=== PATIENT | male | born 1985 | race Two or more races ===

== ENCOUNTER 2016-12-21 09:07 | Emergency (ER) | payer MEDICARE, MEDICAID ==
[~2016-12-21] VITALS: Ht 167.6 cm; Wt 72.6 kg
[~2016-12-21 09:07] MED LIST: CARV25TA PO; SEVE800T8 PO; VIT1TABL46 PO
--- NOTE | 2016-12-21 09:15 | NUR ---
aaox3, came to er c/o headache post dialysis, patient able to finish the dialysis, neuro intact, face symmetrical, bilateral strong and equal supplier relationship director, speech were clear and coherent. skin is warm and non diaphoretic. RR is even and unlabored with NAD noted. Assisted to hospital gown, placed on monitor. will continuously monitor the patient. Dr Ribeiro at BS for eval.
[2016-12-21] MEDS ORDERED: MORPHINE SULFATE INJ 4 MG/ML DISP.SYRIN ONE (09:23)
[2016-12-21] MEDS ORDERED: IV SET PRIMARY 1 EA INFUS.SET MC ONE (09:23)
[2016-12-21] MEDS ORDERED: IV NS 0.9% 500 ML IV ONE (09:23)
[2016-12-21] MEDS ORDERED: ONDANSETRON HCL/PF 4 MG/2 ML VIAL ONE (09:23)
[2016-12-21] MEDS ORDERED: ONDANSETRON HCL/PF 4 MG/2 ML VIAL IVP ONE (09:30)
[2016-12-21] MEDS ORDERED: IV NS 0.9% 500 ML BAG IV ONE (09:30)
[2016-12-21] MEDS ORDERED: MORPHINE SULFATE INJ 2 MG/ML DISP.SYRIN IV ONE (09:30)
--- NOTE | 2016-12-21 09:36 | NUR ---
RAC #18 IV ACCESS. BLOOD SAMPLE COLLECTED SENT TO LAB
[2016-12-21 09:40] LABS: BASOPHILS % (AUTO) 0.3 % (0.0-2.0); EOSINOPHILS # (AUTO) 0.2 /CMM (0.0-0.7); EOSINOPHILS % (AUTO) 1.8 % (0.0-6.0); HEMATOCRIT 37 % (39-51); HEMOGLOBIN 12.2 g/dL (13.5-17.5); LYMPHOCYTES # (AUTO) 0.9 /CMM (0.8-4.8); LYMPHOCYTES % (AUTO) 9.6 % (20.0-44.0); MEAN CORPUSCULAR HEMOGLOBIN 30 PG (26.0-33.0); MEAN CORPUSCULAR HGB CONC 33 g/dl (31.0-36.0); MEAN CORPUSCULAR VOLUME 92 fL (80-96); MONOCYTES # (AUTO) 0.8 /CMM (0.1-1.30); MONOCYTES % (AUTO) 8.6 % (2.0-12.0); NEUTROPHILS # (AUTO) 7.3 /CMM (1.8-8.9); NEUTROPHILS % (AUTO) 79.7 % (43.0-81.0); PLATELET COUNT (AUTO) 226 /CMM (150-450); RDW COEFFICIENT OF VARIATION 16.3 (11.5-15.0); RED BLOOD CELL COUNT(AUTO) 4.02 MIL/uL (4.5-6.0); WHITE BLOOD COUNT (AUTO) 9.1 K/uL (4.3-11.0)
--- NOTE | 2016-12-21 09:40 | NUR ---
COURTROOM DEPUTY AT BEDSIDE
[2016-12-21 09:55] LABS: CALCIUM, SERUM 9.6 mg/dL (8.5-10.1); CREATININE 6.9 mg/dL (0.6-1.3); POTASSIUM 3.9 mmol/L (3.5-5.1)
--- NOTE | 2016-12-21 10:03 | NUR ---
EKG IN PROGRESS AT BS
--- NOTE | 2016-12-21 10:59 | NUR ---
IV removed. Catheter intact and site benign. Pressure and 4x4 applied to site. No bleeding noted.
--- NOTE | 2016-12-21 10:59 | NUR ---
Patient discharged to home in stable condition. Written and verbal after care instructions given. Patient verbalizes understanding of instruction.
[2016-12-21 11:00] VITALS: BP 120/80
== END 2016-12-21 11:00 | disposition home or self-care (01) ==
LOC: ER 09:10
DX: R51 Headache (principal); I12.0 Hypertensive chronic kidney disease with stage 5 chronic kidney disease or end stage renal disease; N18.6 End stage renal disease; Z85.51 Personal history of malignant neoplasm of bladder; Z99.2 Dependence on renal dialysis; Z90.89 Acquired absence of other organs
CPT/HCPCS: 36415; 71010-TC; 80048-TC; 85025-TC; A4606; J2270; J2405; J7040; Z7610

== ENCOUNTER 2017-03-25 08:37 | Emergency (ER) | payer MEDICARE, MEDICAID ==
[~2017-03-25] VITALS: Ht 167.6 cm; Wt 74.4 kg
[2017-03-25] MEDS ORDERED: IV NS 0.9% 500 ML BAG IV ONE (09:30)
[2017-03-25] MEDS ORDERED: ACETAMINOPHEN 325 MG TABLET ONE (09:47)
[2017-03-25] MEDS ORDERED: ACETAMINOPHEN 325 MG TABLET PO ONE (10:00)
[2017-03-25 10:22] VITALS: BP 125/65
== END 2017-03-25 10:23 | disposition home or self-care (01) ==
LOC: ER 08:41
DX: R00.0 Tachycardia, unspecified (principal); I12.0 Hypertensive chronic kidney disease with stage 5 chronic kidney disease or end stage renal disease; N18.6 End stage renal disease; Z99.2 Dependence on renal dialysis; Z85.51 Personal history of malignant neoplasm of bladder; Z90.89 Acquired absence of other organs
CPT/HCPCS: 71010-TC; A4606; J7040; Z7610

== ENCOUNTER 2017-05-07 18:29 | Inpatient (IN) | payer MEDICARE, MEDICAID ==
[~2017-05-07] VITALS: Ht 167.6 cm; Wt 73.9 kg
--- NOTE | 2017-05-07 19:42 | NUR ---
PT C/O LLQ ABD PAIN X6 HOURS PT DENIES N/V/D. PT AOX3 RR EVEN AND UNLABORED. NO SOB NOTED. NAD NOTED. NO NVD AT THIS TIME. PT GOWNED AND PLACED ON MONITOR WAITING FOR MD BERMUDEZ. PT UNABLE TO PROVIDE URINE D/T BEING A HD PT. HD SHUNT NOTED ON BRIANA BRUIT ADN THRILL NOTED.
[2017-05-07] MEDS ORDERED: ONDANSETRON HCL/PF 4 MG/2 ML VIAL ONE (19:56)
[2017-05-07] MEDS ORDERED: MORPHINE SULFATE INJ 4 MG/ML DISP.SYRIN ONE (19:56)
[2017-05-07] MEDS ORDERED: IV NS 0.9% 500 ML BAG IV ONE (20:00)
[2017-05-07] MEDS ORDERED: ONDANSETRON HCL/PF 4 MG/2 ML VIAL IVP ONE (20:00)
[2017-05-07] MEDS ORDERED: MORPHINE SULFATE INJ 2 MG/ML DISP.SYRIN IV ONE (20:00)
--- NOTE | 2017-05-07 20:02 | NUR ---
MEDICATED PT ORDERED
[2017-05-07 20:06] LABS: BASOPHILS % (AUTO) 0.3 % (0.0-2.0); EOSINOPHILS # (AUTO) 0.7 /CMM (0.0-0.7); EOSINOPHILS % (AUTO) 9.2 % (0.0-6.0); HEMATOCRIT 30 % (39-51); HEMOGLOBIN 10.3 g/dL (13.5-17.5); LYMPHOCYTES # (AUTO) 0.9 /CMM (0.8-4.8); LYMPHOCYTES % (AUTO) 12.4 % (20.0-44.0); MEAN CORPUSCULAR HEMOGLOBIN 32 PG (26.0-33.0); MEAN CORPUSCULAR HGB CONC 35 g/dl (31.0-36.0); MEAN CORPUSCULAR VOLUME 93 fL (80-96); MONOCYTES # (AUTO) 0.7 /CMM (0.1-1.30); MONOCYTES % (AUTO) 9.1 % (2.0-12.0); PLATELET COUNT (AUTO) 206 /CMM (150-450); RDW COEFFICIENT OF VARIATION 14.5 (11.5-15.0); WHITE BLOOD COUNT (AUTO) 7.3 K/uL (4.3-11.0)
--- NOTE | 2017-05-07 20:18 | NUR ---
PT TO RADIOLOGY FOR CT ABD/PELVIS
[2017-05-07 20:23] LABS: ALBUMIN 3.9 g/dL (3.4-5.0); BILIRUBIN,DIRECT 0.1 mg/dL (0.0-0.2); BILIRUBIN,TOTAL 0.6 mg/dL (0.2-1.0); TOTAL PROTEIN, SERUM 7.8 g/dL (6.4-8.2)
[2017-05-07 20:27] LABS: CREATININE 12.3 mg/dL (0.6-1.3)
--- NOTE | 2017-05-07 20:29 | NUR ---
PT RETURNED FROM CT.
[2017-05-07] MEDS ORDERED: SODIUM POLYSTYRENE SULFONATE 15 G/60 ML BOTTLE PO ONE (20:30)
[2017-05-07] MEDS ORDERED: SODIUM POLYSTYRENE SULFONATE 15 G/60 ML BOTTLE ONE (20:39)
--- NOTE | 2017-05-07 21:23 | NUR ---
DR. CARMEN SPEAKING TO DR. PERSON REGARDING ADMISSION
[2017-05-07] MEDS ORDERED: INSULIN REGULAR, HUMAN 100 UNIT/ML 10 ML VIAL IV ONE (21:30)
[2017-05-07] MEDS ORDERED: CALCIUM CHLORIDE 1,000 MG/10 ML DISP.SYRIN IV ONE (21:30)
[2017-05-07] MEDS ORDERED: DEXTROSE 50%-WATER 50 ML DISP.SYRIN IVP ONE (21:30)
[2017-05-07] MEDS ORDERED: INSULIN REGULAR, HUMAN 100 UNIT/ML 10 ML VIAL ONE (21:32)
[2017-05-07] MEDS ORDERED: CALCIUM CHLORIDE 1,000 MG/10 ML DISP.SYRIN ONE (21:32)
[2017-05-07] MEDS ORDERED: DEXTROSE 50%-WATER 50 ML DISP.SYRIN ONE (21:32)
--- NOTE | 2017-05-07 21:33 | NUR ---
10 UNIT INSULIN WITNESSED
--- NOTE | 2017-05-07 22:24 | NUR ---
LAB AT BEDSIDE FOR Joselyn HERNANDES
--- NOTE | 2017-05-07 22:26 | NUR ---
PT ASSIGNED TO [facility] BED 321-2
--- NOTE | 2017-05-07 22:33 | NUR ---
REPORT GIVEN TO HORACIO ANDERSON FOR TELE BED 321-2
[2017-05-07 23:25] VITALS: BP 157/85
--- NOTE | 2017-05-08 00:02 | NUR ---
CATHODE BUILDER NOTES RECEIVED PATIENT FROM ER TO ROOM 321-2, A & O x 4 WITH C/O LEFT LOWER ABDOMINAL PAIN AT PAIN SCALE 2/10 AT THIS TIME. DOESN'T WANT TO TAKE ANY PAIN MEDICINE AT THIS TIME. ON TELE MONITORING WITH SR 90. IV ACCESS TO RAC, INTACT PATENT. NO S/S OF INFECTION NOTED. ON DIALYSIS WITH AV SHUNT TO HIS MANINDER. AMBULATORY, CONTINENT. BODY ASSESSMENT DONE, INTACT. ALL BELONGINGS ACCOUNTED & DOCUMENTED. BED IN LOW LOCKED POSITION. CALL LIGHT WITHIN REACH. WILL CONTINUE TO MONITOR.
--- NOTE | 2017-05-08 00:55 | NUR ---
KOSHER SEALER NOTES CALLED DR. WALL, REVIEWED ALL ADMISSION ORDERS. NOTED & CARRIED OUT.
[2017-05-08] MEDS ORDERED: ONDANSETRON HCL/PF 4 MG/2 ML VIAL IV PRN (01:30)
[2017-05-08] MEDS ORDERED: ACETAMINOPHEN 325 MG TABLET PO PRN (01:30)
[2017-05-08] MEDS ORDERED: ZOLPIDEM TARTRATE 5 MG TABLET PO PRN (01:30)
[2017-05-08] MEDS ORDERED: HYDROMORPHONE 1 MG/1 ML DISP.SYRIN IV PRN ×2 (01:30→13:00)
[2017-05-08] MEDS ORDERED: ACETAMINOPHEN 325 MG TABLET ONE (06:14)
--- NOTE | 2017-05-08 06:19 | NUR ---
RN NOTES PT COMPLAINED OF LOWER ABDOMEN PAIN 10/18- TYLENOL 650MG PO GIVEN ORDERED
--- NOTE | 2017-05-08 06:39 | NUR ---
MS RN CLOSING NOTES PATIENT SLEPT WELL, HAD MILD C/O PAIN TO LEFT LOWER ABDOMEN. PRN MEDICINE WAS GIVEN . IV ACCESS TO RAC, INTACT PATENT. AMBULATORY, CONTINENT OF B & BM. KEPT CLEAN & DRY. ALL NEEDS MET. BED IN LOW LOCKED POSITION. CALL LIGHT WITHIN REACH. WLL CONTINUE TO MONITOR. WILL ENDORSE TO AM SHIFT.
[2017-05-08 07:20] LABS: BASOPHILS % (AUTO) 0.4 % (0.0-2.0); EOSINOPHILS # (AUTO) 0.7 /CMM (0.0-0.7); EOSINOPHILS % (AUTO) 10.2 % (0.0-6.0); HEMATOCRIT 29 % (39-51); HEMOGLOBIN 9.7 g/dL (13.5-17.5); LYMPHOCYTES # (AUTO) 1.6 /CMM (0.8-4.8); LYMPHOCYTES % (AUTO) 21.6 % (20.0-44.0); MEAN CORPUSCULAR HEMOGLOBIN 32 PG (26.0-33.0); MEAN CORPUSCULAR HGB CONC 34 g/dl (31.0-36.0); MEAN CORPUSCULAR VOLUME 94 fL (80-96); MONOCYTES # (AUTO) 0.7 /CMM (0.1-1.30); MONOCYTES % (AUTO) 9.7 % (2.0-12.0); NEUTROPHILS # (AUTO) 4.2 /CMM (1.8-8.9); NEUTROPHILS % (AUTO) 58.1 % (43.0-81.0); PLATELET COUNT (AUTO) 173 /CMM (150-450); RDW COEFFICIENT OF VARIATION 15.6 (11.5-15.0); RED BLOOD CELL COUNT(AUTO) 3.06 MIL/uL (4.5-6.0); WHITE BLOOD COUNT (AUTO) 7.2 K/uL (4.3-11.0)
--- NOTE | 2017-05-08 07:30 | NUR ---
RN MS NOTES PATIENT ASLEEP BUT EASILY AROUSABLE, DENIES PAIN AT THIS TIME, CURRENTLY ON HEMODIALYSIS AND TOLERATING WELL, NEEDS ATTENDED AND ANTICIPATED, SAFETY MEASURES IN PLACED, CALL LIGHT WITHIN REACH, WILL CONTINUE TO MONITOR.
[2017-05-08 07:33] LABS: ALBUMIN 3.4 g/dL (3.4-5.0); BILIRUBIN,TOTAL 0.5 mg/dL (0.2-1.0); CALCIUM, SERUM 9.6 mg/dL (8.5-10.1); MAGNESIUM 2.7 mg/dL (1.8-2.4); POTASSIUM 5.9 mmol/L (3.5-5.1); TOTAL PROTEIN, SERUM 6.9 g/dL (6.4-8.2)
[2017-05-08 07:38] LABS: CREATININE 13.5 mg/dL (0.6-1.3)
[2017-05-08 08:00] VITALS: BP 148/72
--- NOTE | 2017-05-08 10:00 | NUR ---
RN MS NOTES HEMODIALYSIS COMPLETED WITH 3LITER OUTPUT.
[2017-05-08] MEDS ORDERED: HYDROMORPHONE INJ 2 MG/ML DISP.SYRIN IV PRN (11:00)
--- NOTE | 2017-05-08 11:33 | NUR ---
RN MS NOTES DR. MONROE MADE AWARE OF PHOSPHORUS LEVEL, RECEIVED NO NEW ORDER AT THIS TIME, PER MD, PATIENT IS NON COMPLIANT WITH HIS DIET, HIS PHOSPHORUS IS ALWAYS ELEVATED.
--- NOTE | 2017-05-08 12:41 | NUR ---
RN MS NOTES ILIA MEDICATION INEFFECTIVE, PATIENT CONTINUES TO HAVE MORE PAIN, DR. MONROE MADE AWARE AND RECEIVED NEW ORDER FOR DILAUDID 1MG Q4H PRN, ORDER NOTED AND CARRIED OUT.
[2017-05-08] MEDS: HYDROMORPHONE INJ 2 MG/ML DISP.SYRIN IV PRN ×2 (13:24→19:56)
[2017-05-08] MEDS: SEVELAMER CARBONATE 800 MG TABLET PO SCH ×2 (13:26→17:48)
[2017-05-08 16:33] VITALS: BP 170/80
--- NOTE | 2017-05-08 17:30 | NUR ---
RN MS NOTES PATIENT RESTING COMFORTABLY, NO S/SX OF DISTRESS AT THIS TIME, PIV PATENT AND FLUSHES WELL, NEEDS ATTENDED AND MET, C/O LOWER ABDOMINAL PAIN, MEDICATION TAKEN OUT OF OMNICELL AND GIVEN TO DISTRICT WIRE CHIEF NURSE FOR ADMINISTRATION, SAFETY MEASURES IN PLACED, CALL LIGHT WITHIN REACH, WILL ENDORSE TO DISTRICT WIRE CHIEF FOR ERIC.
--- NOTE | 2017-05-08 19:30 | NUR ---
RN NOTES: RECEIVED LYING ON BED,ALERT AND COHERENTX4,ON ROOM AIR,NO SIGN OF RESPIRATORY DISTRESS,BED LOW AND LOCKED,CALL LIGHT WITHIN EASY REACH,INSTRUCT TO CALL WHENEVER HE IS IN PAIN, KEPT ON CLOSE VISUAL CHECK,MANINDER AV SHUNT POSITIVE FOR BRUIT AND THRILL.
--- NOTE | 2017-05-08 19:45 | NUR ---
RN NOTES: SEEN BY , WITH NEW ORDER FOR SURGICAL EVALUATION OF RECTUS SHEATH HEMATOMA TO . NOTED AND CARRIED OUT.
[2017-05-08 20:00] VITALS: BP_SYST 124; BP_SYST 151; BP_DIAS 77; BP_DIAS 85
--- NOTE | 2017-05-08 20:00 | NUR ---
RN NOTES: PATIENT HAS SEVERE PAIN ON THE LOWER ABDOMEN AREA, GRIMACING,NON PHARMACOLOGIC INTERVENTION RENDERED, BP-151/85 MS-101.DILAUDID GIVEN, KEPT IN COMFORTABLE POSITION.CALL LIGHT WITHIN EASY REACH.
--- NOTE | 2017-05-08 20:43 | NUR ---
RN NOTES: NM RECHECKED=90 TAKEN MANUALLY,ABLE TO SLEEP WELL AFTER PAIN MEDICATION WAS GIVEN,KEPT ON CLOSE WATCH, CALL LIGHT WITHIN EASY REACH.
[2017-05-08] MEDS: CARVEDILOL 12.5 MG TABLET PO SCH (21:21)
--- NOTE | 2017-05-09 00:23 | NUR ---
RN NOTES: AWAKE,REQUEST FOR SNACK, GIVEN SANDWICH AND CRANBERRY JUICE,LINNEN CHANGE, AMBULATE FOR FEW MINUTES,TOLERATED WELL, CAME BACK TO HIS ROOM AND SIT DOWN ON THE BED SIDE.
[2017-05-09] MEDS: HYDROMORPHONE INJ 2 MG/ML DISP.SYRIN IV PRN ×2 (01:56→20:43)
--- NOTE | 2017-05-09 02:30 | NUR ---
RN NOTES: -0156AM AFTER HE AMBULATE AND EAT HE COMPLAINED OF PAIN,10/10 ON THE ABDOMEN AREA,INSTRUCT TO LIE DOWN AND REST, HE REQUEST FOR HIS PAIN MEDICATION , DILAUDID GIVEN, BP-135/74 CA-89.KEPT RESTED. -AT 0230 ABLE TO SLEEP AND REST, KEPT MONITORED, CALL LIGHT WITHIN EASY REACH.
--- NOTE | 2017-05-09 06:39 | NUR ---
RN NOTES: ASLEEP, NO PAIN AND DISCOMFORT AT THIS TIME,NO SIGN OF RESPIRATORY DISTRESS,ENDORSED FOR CONTINUITY OF CARE.
--- NOTE | 2017-05-09 07:53 | NUR ---
RN NOTES RECEIVED PT. PT IS STABLE AND SLEEPING IN BED. NO S/S OF DISTRESS OR SOB. PT DOES NOT APPEAR TO BE IN PAIN. PT IS ON RA, O2SAT ABOVE 95%. IV ACCESS LOCATED ON RIGHT AC 18G, SL. AV SHUNT ON LEFT UA, BRUIT AND THRILL NOTED. SAFETY MEASURES IN PLACE, CALL LIGHT WITHIN REACH. WILL CONTINUE TO MONITOR.
[2017-05-09 08:00] VITALS: BP 134/61
[2017-05-09] MEDS: CARVEDILOL 12.5 MG TABLET PO SCH ×2 (08:45→20:43)
[2017-05-09] MEDS: VIT B CMPLX 3/FA/VIT C/BIOTIN 1 TAB TABLET PO SCH (08:45)
[2017-05-09] MEDS: SEVELAMER CARBONATE 800 MG TABLET PO SCH ×3 (08:45→18:20)
[2017-05-09] MEDS ORDERED: HYDROCODONE/APAP 10/325MG 1 EA TABLET PO PRN (15:00)
[2017-05-09 16:00] VITALS: BP 146/77
--- NOTE | 2017-05-09 18:59 | NUR ---
RN CLOSING NOTES PT IS IN BED RESTING. PT IS CURRENTLY RECEIVING DIALYSIS. DIALYSIS NURSE IS BEDSIDE. NO S/S OF DISTRESS OR SOB. PT STATES THAT HIS PAIN IS 4/10, BUT DOES NOT WANT PAIN MEDICATION. PER DR. CASTRO ORDER: ICEPACK APPLIED TO ABDOMEN X10 DAILY, APPLY ABD BINDER, AMBULATE DURING DAY. SAFETY MEASURES IN PLACE, CALL LIGHT WITHIN REACH. WILL ENDORSE TO LEMON GROWER FOR ERIC.
--- NOTE | 2017-05-09 19:00 | NUR ---
MS RN OPENING NOTES RECEIVE PT RESTING IN BED, A/OX 4. NO S/S OF RESPIRATORY DISTRESS OR SOB. SAFETY MEASURES IN PLACE, ON LOW BED TO ENSURE SAFETY. CALL LIGHT WITHIN REACH. WILL CONTINUE TO MONITOR
--- NOTE | 2017-05-09 19:00 | NUR ---
MS RN NOTES AM NURSE ENDORSE TO ME THAT DIALYSIS WAS JUST DONE AND PT TOLERATED PROCEDURE WELL.
[2017-05-09 20:00] VITALS: BP 139/77
[2017-05-10] MEDS: HYDROMORPHONE INJ 2 MG/ML DISP.SYRIN IV PRN ×3 (05:54→22:19)
--- NOTE | 2017-05-10 06:31 | NUR ---
MS RN CLOSING NOTES PT ASLEEP AND EASILY AWAKEN, HOB, TOLERATING ROOM AIR 100%. RAC 18 IV SITE NO S/S OF INFILTRATED, NO S/S OF RESPIRATORY DISTRESS IN STABLE CONDITION. NO COMPLAIN OF PAIN AT THIS TIME. NO SOB, SKIN WARM AND DRY TO TOUCH, AFEBRILE, NEEDS ATTENDED AND ANTICIPATED. NURSING CARE RENDERED.. KEPT CLEAN AND DRY AND COMFORTABLE, GOOD SKIN CARE PROVIDED. FREQUENT VISUAL CHECK DONE FOR SAFETY EVERY 2 HOURS. SAFE HAZARD FREE ENVIRONMENT PROVIDED. CALL LIGHT WITHIN EASY TO REACH, ON LOW BED AT ALL TIMES TO ENSURE SAFETY, WILL ENDORSE TO THE NEXT SHIFT CONTINUE PLAN OF CARE.
--- NOTE | 2017-05-10 07:30 | NUR ---
received pt. in am alert and oriented x3.no complaints offered.
[2017-05-10 08:00] VITALS: BP 155/72
[2017-05-10] MEDS: CARVEDILOL 12.5 MG TABLET PO SCH ×2 (09:26→22:18)
[2017-05-10] MEDS: SEVELAMER CARBONATE 800 MG TABLET PO SCH ×3 (09:26→18:10)
[2017-05-10] MEDS: VIT B CMPLX 3/FA/VIT C/BIOTIN 1 TAB TABLET PO SCH (09:26)
--- NOTE | 2017-05-10 10:30 | NUR ---
walking in halls.
--- NOTE | 2017-05-10 12:00 | NUR ---
using ice pack to abd.
--- NOTE | 2017-05-10 14:32 | NUR ---
med. for abd. pain with dilaudid.
[2017-05-10 16:00] VITALS: BP 138/74
--- NOTE | 2017-05-10 18:09 | NUR ---
med. for headache with chester.
--- NOTE | 2017-05-10 19:00 | NUR ---
MS RN OPENING NOTES PT RESTING IN BED, A/OX 4. NO S/S OF RESPIRATORY DISTRESS OR SOB. SAFETY MEASURES IN PLACE, ON LOW BED TO ENSURE SAFETY. CALL LIGHT WITHIN REACH. WILL CONTINUE TO MONITOR
[2017-05-10 20:00] VITALS: BP 155/84
--- NOTE | 2017-05-11 06:34 | NUR ---
MS RN CLOSING NOTES PT SEMI FOWLERS ASLEEP AND EASILY AWAKEN, TOLERATING ROOM AIR 100%. NO S/S OF RESPIRATORY DISTRESS IN STABLE CONDITION. NO COMPLAINS OF PAIN, 0/10 AFEBRILE, IV SITE NO S/S OF INFILTRATED PATENT AND INTACT, NEEDS ATTENDED AND ANTICIPATED. NURSING CARE RENDERED.. KEPT CLEAN AND DRY AND COMFORTABLE, FREQUENT VISUAL CHECK DONE FOR SAFETY EVERY 2 HOURS. SAFE HAZARD FREE ENVIRONMENT PROVIDED.. CALL LIGHT WITHIN EASY TO REACH, ON LOW BED AT ALL TIMES TO ENSURE SAFETY, WILL ENDORSE TO THE NEXT SHIFT CONTINUE PLAN OF CARE.
[2017-05-11 07:00] LABS: BASOPHILS % (AUTO) 0.4 % (0.0-2.0); EOSINOPHILS # (AUTO) 0.7 /CMM (0.0-0.7); EOSINOPHILS % (AUTO) 9.7 % (0.0-6.0); HEMATOCRIT 28 % (39-51); HEMOGLOBIN 9.5 g/dL (13.5-17.5); LYMPHOCYTES # (AUTO) 0.9 /CMM (0.8-4.8); LYMPHOCYTES % (AUTO) 12.4 % (20.0-44.0); MEAN CORPUSCULAR HEMOGLOBIN 32 PG (26.0-33.0); MEAN CORPUSCULAR HGB CONC 35 g/dl (31.0-36.0); MEAN CORPUSCULAR VOLUME 93 fL (80-96); MONOCYTES # (AUTO) 0.8 /CMM (0.1-1.30); NEUTROPHILS # (AUTO) 4.7 /CMM (1.8-8.9); NEUTROPHILS % (AUTO) 66.5 % (43.0-81.0); PLATELET COUNT (AUTO) 209 /CMM (150-450); RED BLOOD CELL COUNT(AUTO) 2.96 MIL/uL (4.5-6.0); WHITE BLOOD COUNT (AUTO) 7.1 K/uL (4.3-11.0)
[2017-05-11 07:27] LABS: CALCIUM, SERUM 9.5 mg/dL (8.5-10.1); MAGNESIUM 2.5 mg/dL (1.8-2.4)
[2017-05-11 07:32] LABS: CREATININE 13.7 mg/dL (0.6-1.3)
[2017-05-11 08:00] VITALS: BP_SYST 157; BP_DIAS 88; BP_DIAS 89
--- NOTE | 2017-05-11 08:13 | NUR ---
GPS RN NOTE CRITICAL LAB RESULT NOTIFIED DR ROB PHILLIPS NO NEW ORDERS AT THIS TIME WILL CONTINUE MONITORING
[2017-05-11] MEDS: SEVELAMER CARBONATE 800 MG TABLET PO SCH ×3 (08:55→17:09)
[2017-05-11] MEDS: VIT B CMPLX 3/FA/VIT C/BIOTIN 1 TAB TABLET PO SCH (08:55)
[2017-05-11] MEDS: CARVEDILOL 12.5 MG TABLET PO SCH ×2 (09:03→21:03)
--- NOTE | 2017-05-11 12:46 | NUR ---
MS RN NOTES: DIALYSIS JUST DONE AND PT TOLERATED PROCEDURE WELL,NO S/S DISTRESS NOTED.
[2017-05-11 13:10] VITALS: BP 141/74
[2017-05-11] MEDS: HYDROMORPHONE INJ 2 MG/ML DISP.SYRIN IV PRN (13:18)
--- NOTE | 2017-05-11 13:18 | NUR ---
RN NOTE : PATIENT REQUESTED MEDICATIONS FOR PAIN 03/29 DILAUDID 1 MG PO PRN GIVEN WILL CONTINUE MONITORING
[2017-05-11 16:00] VITALS: BP 134/72
--- NOTE | 2017-05-11 18:18 | NUR ---
RN CLOSING NOTES PT IS IN THE ROOM SITTING IN THE CHAIR . PT RECEIVING DIALYSIS. NO S/S OF DISTRESS OR SOB. VS STABLE PATIENT DENIES PAIN AT THIS TIME SAFETY MEASURES IN PLACE, CALL LIGHT WITHIN REACH. WILL ENDORSE TO BREAD PAN GREASER FOR ERIC.
--- NOTE | 2017-05-11 19:30 | NUR ---
MS/RN OPENING NOTES PT RECEIVED RESTING COMFORTABLY IN BED. A/OX4. ON ROOM AIR, BREATHING EVEN AND UNLABORED. DENIES SOB OR PAIN AT THIS TIME. PT RECEIVED DIALYSIS TODAY WITH 1.5L OUT. IV TO RAC PATENT AND INTACT. MANINDER AV SHUNT NOTED. BED IN LOW/LOCKED POSITION WITH CALL LIGHT IN REACH. SIDE RAILS UPX2. WILL CONTINUE TO MONITOR
[2017-05-11 20:00] VITALS: BP 135/70
--- NOTE | 2017-05-11 20:15 | NUR ---
MS/RN NOTES OFFERED PT PRN PAIN MEDICATION HE SCORED ABDOMINAL PAIN 4/10. PT REFUSED. EDUCATED PT REGARDING MANAGEMENT OF PAIN BUT PT STILL REFUSED AT THIS TIME. STATES "IM OKAY FOR NOW". WILL CONTINUE TO MONITOR
[2017-05-12] MEDS: HYDROMORPHONE INJ 2 MG/ML DISP.SYRIN IV PRN ×2 (04:05→09:23)
[2017-05-12 07:08] LABS: BASOPHILS % (AUTO) 0.3 % (0.0-2.0); EOSINOPHILS # (AUTO) 0.6 /CMM (0.0-0.7); EOSINOPHILS % (AUTO) 10.2 % (0.0-6.0); HEMATOCRIT 26 % (39-51); HEMOGLOBIN 8.8 g/dL (13.5-17.5); LYMPHOCYTES # (AUTO) 1.2 /CMM (0.8-4.8); LYMPHOCYTES % (AUTO) 19.2 % (20.0-44.0); MEAN CORPUSCULAR HEMOGLOBIN 32 PG (26.0-33.0); MEAN CORPUSCULAR HGB CONC 34 g/dl (31.0-36.0); MEAN CORPUSCULAR VOLUME 94 fL (80-96); MONOCYTES # (AUTO) 0.9 /CMM (0.1-1.30); MONOCYTES % (AUTO) 14.1 % (2.0-12.0); NEUTROPHILS # (AUTO) 3.4 /CMM (1.8-8.9); NEUTROPHILS % (AUTO) 56.2 % (43.0-81.0); PLATELET COUNT (AUTO) 190 /CMM (150-450); RDW COEFFICIENT OF VARIATION 15.3 (11.5-15.0); RED BLOOD CELL COUNT(AUTO) 2.74 MIL/uL (4.5-6.0); WHITE BLOOD COUNT (AUTO) 6.1 K/uL (4.3-11.0)
[2017-05-12 07:26] LABS: CALCIUM, SERUM 9.5 mg/dL (8.5-10.1); MAGNESIUM 2.4 mg/dL (1.8-2.4); POTASSIUM 4.8 mmol/L (3.5-5.1)
--- NOTE | 2017-05-12 07:30 | NUR ---
RN OPENING NOTES RECEIVED PT. IN BED A&OX4. BREATHING UNLABORED AND EVENLY ON ROOM AIR. PT. DENIES PAIN, NO S/S OF ACUTE DISTRESS. IV ACCESS ON RIGHT HAND IS INTACT. PT. IS ON HEMODILAYSIS NO BP OR BLOOD DRAWS ON LEFT ARM. BED IS IN LOW, LOCKED POSITION, 2 SIDE RAILS UP, AND INSTRUCTED PT. TO USE CALL LIGHT WITHIN REACH. WILL CONTINUE TO ASSESS AND MONITOR.
--- NOTE | 2017-05-12 07:49 | NUR ---
MS/RN NOTES PT ASLEEP, EASILY AROUSABLE TO NAME. A/OX3. ON RA BREATHING EVEN AND UNLABORED. DENIES SOB OR PAIN AT THIS TIME. NEW IV INSERTED TO RIGHT FOREARM #22. MADE PT COMFORTABLE DURING SHIFT. ALL NEEDS MET AND ATTENDED. BED IN LOW/LOCKED POSITION WITH CALL LIGHT IN REACH. ICE PACKS PROVIDED PRN TO ASSIST WITH PAIN MANAGEMENT. SIDE RAILS UPX2. ENDORSED TO AM SHIFT ERIC.
[2017-05-12 08:00] VITALS: BP 123/80
[2017-05-12] MEDS: SEVELAMER CARBONATE 800 MG TABLET PO SCH ×2 (08:11→13:06)
[2017-05-12] MEDS: CARVEDILOL 12.5 MG TABLET PO SCH (08:15)
[2017-05-12] MEDS: VIT B CMPLX 3/FA/VIT C/BIOTIN 1 TAB TABLET PO SCH (08:15)
[2017-05-12 16:00] VITALS: BP 133/74
--- NOTE | 2017-05-12 17:00 | NUR ---
RN NOTES DISCHARGE PT. WAS DISCHARGED IN MEDICALLY STABLE CONDITION BY WHEELCHAIR, AND WILL BE PICKED UP BY HIS BROTHER IN A PRIVATE CAR. PROVIDED PT. DISCHARGE INSTRUCTIONS, EDUCATION AND PT. VERBALIZED UNDERSTANDING. CHECKED PT. BELONGINGS LIST WITH PATIENT AND PAPER WAS SIGNED. IV AND ID BAND WAS REMOVED WITHOUT COMPLICATIONS. PT. LEFT WITH HIS BELONGINGS, AND DISCHARGE PACKET. ALL QUESTIONS WERE ANSWERED.
== END 2017-05-12 17:00 | disposition home or self-care (01) | DRG 604 ==
LOC: ER 18:35 → TELE 22:20 → MED 05-08 01:00
PROVIDERS: ADMIT Internal Medicine; ATTEND Internal Medicine
PROC: 5A1D70Z Performance of Urinary Filtration, Intermittent, Less than 6 Hours Per Day (ICD-10-PCS; principal; 2017-05-08)
DX: S30.1XXA Contusion of abdominal wall, initial encounter (principal); N18.6 End stage renal disease; K56.600 Partial intestinal obstruction, unspecified as to cause; I12.0 Hypertensive chronic kidney disease with stage 5 chronic kidney disease or end stage renal disease; E83.39 Other disorders of phosphorus metabolism; E87.5 Hyperkalemia; N25.0 Renal osteodystrophy; Z85.51 Personal history of malignant neoplasm of bladder; D63.1 Anemia in chronic kidney disease; Z99.2 Dependence on renal dialysis; X58.XXXA Exposure to other specified factors, initial encounter; Y92.009 Unspecified place in unspecified non-institutional (private) residence as the place of occurrence of the external cause; Z87.11 Personal history of peptic ulcer disease; Z90.49 Acquired absence of other specified parts of digestive tract; Z91.19 Patient's noncompliance with other medical treatment and regimen; Z90.5 Acquired absence of kidney; Y93.9 Activity, unspecified; Z90.79 Acquired absence of other genital organ(s)
CPT/HCPCS: 36415; 80048-TC; 80053-TC; 80076-TC; 83690-TC; 83735-TC; 84100-TC; 84132-TC; 85025-TC; 90935-TC; A4606; J1170; J1815; J2270; J2405; J3490; J7040; Z7610

== ENCOUNTER 2017-08-16 07:41 | Emergency (ER) | payer MEDICARE, MEDICAID ==
[~2017-08-16] VITALS: Ht 167.6 cm; Wt 75.3 kg
--- NOTE | 2017-08-16 08:06 | NUR ---
Pt states he has been having Palpitations for 3 days, intermittantly, with slight chest discomfort, denies radiation. Also c/o KEE. Pt denies SOB, dizziness, n/v, no other complaints, no distress noted.
--- NOTE | 2017-08-16 08:09 | NUR ---
Note undone in EDM - 08/16/17 at 0810 by JOSUE PATIENT TO ED DT PALPITATION SP HEMODIALYSIS. PATIENT IS AAO4. APPEARS IN NO APPARENT DISTRESS. DENIES CHEST PAIN, NO SOB. BRIANA AV FISTUAL NOTED WITH NO BLEEDING. PT IS AFEBRILE. CONNECTED PT TO TELE MONITOR. VSS
[2017-08-16 08:29] LABS: BASOPHILS % (AUTO) 0.6 % (0.0-2.0); EOSINOPHILS # (AUTO) 0.3 /CMM (0.0-0.7); EOSINOPHILS % (AUTO) 6.1 % (0.0-6.0); HEMATOCRIT 31 % (39-51); HEMOGLOBIN 10.6 g/dL (13.5-17.5); LYMPHOCYTES # (AUTO) 0.9 /CMM (0.8-4.8); LYMPHOCYTES % (AUTO) 18.4 % (20.0-44.0); MEAN CORPUSCULAR HEMOGLOBIN 30 PG (26.0-33.0); MEAN CORPUSCULAR HGB CONC 34 g/dl (31.0-36.0); MEAN CORPUSCULAR VOLUME 89 fL (80-96); MONOCYTES # (AUTO) 0.6 /CMM (0.1-1.30); MONOCYTES % (AUTO) 11.3 % (2.0-12.0); NEUTROPHILS # (AUTO) 3.2 /CMM (1.8-8.9); NEUTROPHILS % (AUTO) 63.6 % (43.0-81.0); PLATELET COUNT (AUTO) 189 /CMM (150-450); RDW COEFFICIENT OF VARIATION 16.1 (11.5-15.0); RED BLOOD CELL COUNT(AUTO) 3.49 MIL/uL (4.5-6.0)
[2017-08-16 08:43] LABS: CALCIUM, SERUM 10.2 mg/dL (8.5-10.1); CREATININE 5.1 mg/dL (0.6-1.3)
[2017-08-16 08:48] LABS: INR 0.96 (0.87-1.13)
[2017-08-16 08:51] LABS: TROPONIN I 0.178 ng/mL (0.00-0.056)
[2017-08-16] MEDS ORDERED: LORAZEPAM 0.5 MG TABLET PO ONE (09:30)
[2017-08-16] MEDS ORDERED: LORAZEPAM 1 MG TABLET ONE (09:32)
--- NOTE | 2017-08-16 09:36 | NUR ---
Removed IV intact, site okay, bandaged. Gave pt d/c instructions, verbalized understanding.
[2017-08-16 09:43] VITALS: BP 143/81
== END 2017-08-16 09:44 | disposition home or self-care (01) ==
LOC: ER 07:46
DX: R00.2 Palpitations (principal); I12.9 Hypertensive chronic kidney disease with stage 1 through stage 4 chronic kidney disease, or unspecified chronic kidney disease; N18.9 Chronic kidney disease, unspecified; K56.609 Unspecified intestinal obstruction, unspecified as to partial versus complete obstruction; Z99.2 Dependence on renal dialysis; Z90.89 Acquired absence of other organs
CPT/HCPCS: 36415; 71045; 80048; 84484; 85025; 85730; 93005; 99285; A4606; Z7610

== ENCOUNTER 2017-09-02 07:50 | Inpatient (IN) | payer MEDICARE, MEDICAID ==
[~2017-09-02] VITALS: Ht 157.5 cm; Wt 76.2 kg
--- NOTE | 2017-09-02 08:00 | NUR ---
[id number] FROM HOME DT CHEST PAIN, 810, SHARP, RADIATING TO THE RIGHT SHOULDER AND BACK. PATIENT IS AWAKE AND LAERT. APPEARS IN NO DISTRESS. PT ON SP DIALYSIS TODAY. PATIENT IS AFEBRILE. NO N/V. NO DIZZINESS REPORTED. PT AMBULATOTY. SKIN IS WARM AND NON DIAPHHORETIC. AFEBRILE. VSS.
--- NOTE | 2017-09-02 08:04 | NUR ---
MD NAILS AT BEDSIDE
--- NOTE | 2017-09-02 08:04 | NUR ---
PENDING MD BERMUDEZ
[2017-09-02] MEDS ORDERED: ONDANSETRON HCL/PF 4 MG/2 ML VIAL ONE (08:09)
[2017-09-02] MEDS ORDERED: MORPHINE SULFATE INJ 4 MG/ML DISP.SYRIN ONE (08:09)
[2017-09-02 08:23] LABS: BASOPHILS % (AUTO) 0.3 % (0.0-2.0); EOSINOPHILS # (AUTO) 0.2 /CMM (0.0-0.7); EOSINOPHILS % (AUTO) 4.4 % (0.0-6.0); HEMATOCRIT 30 % (39-51); HEMOGLOBIN 10.1 g/dL (13.5-17.5); LYMPHOCYTES # (AUTO) 0.8 /CMM (0.8-4.8); LYMPHOCYTES % (AUTO) 18.8 % (20.0-44.0); MEAN CORPUSCULAR HEMOGLOBIN 30 PG (26.0-33.0); MEAN CORPUSCULAR HGB CONC 34 g/dl (31.0-36.0); MEAN CORPUSCULAR VOLUME 87 fL (80-96); MONOCYTES # (AUTO) 0.4 /CMM (0.1-1.30); MONOCYTES % (AUTO) 9.7 % (2.0-12.0); NEUTROPHILS # (AUTO) 2.9 /CMM (1.8-8.9); NEUTROPHILS % (AUTO) 66.8 % (43.0-81.0); PLATELET COUNT (AUTO) 188 /CMM (150-450); RDW COEFFICIENT OF VARIATION 16.2 (11.5-15.0); RED BLOOD CELL COUNT(AUTO) 3.43 MIL/uL (4.5-6.0); WHITE BLOOD COUNT (AUTO) 4.3 K/uL (4.3-11.0)
[2017-09-02] MEDS ORDERED: MORPHINE SULFATE INJ 2 MG/ML DISP.SYRIN IV ONE (08:30)
[2017-09-02] MEDS ORDERED: ONDANSETRON HCL/PF 4 MG/2 ML VIAL IVP ONE (08:30)
[2017-09-02 08:32] LABS: CALCIUM, SERUM 10.1 mg/dL (8.5-10.1); CREATININE 5.9 mg/dL (0.6-1.3); POTASSIUM 3.6 mmol/L (3.5-5.1)
[2017-09-02 08:42] LABS: INR 0.98 (0.87-1.13)
[2017-09-02 08:48] LABS: TROPONIN I 0.3 ng/mL (0.00-0.056)
[2017-09-02] MEDS ORDERED: LEVOFLOXACIN 750 MG /D5W 150ML 150 ML IV ONE ×2 (09:00→09:01)
--- NOTE | 2017-09-02 09:09 | NUR ---
[facility], [place] [phone] CASTRO
--- NOTE | 2017-09-02 10:12 | NUR ---
PT TRASPORTED TO [facility] VIA ACLS PROTOCOL. VSS
--- NOTE | 2017-09-02 10:15 | NUR ---
teletype installercriminal attorney notes Admitted a 32 years old male patient who came in due to chest pain. patient is under the medical service of Dr. Chacon. Patient is alert and oriented x 4, verbally responsive and able to make needs known. LUE AV fistula. IV intact and patent, RAC 20. No complaint of pain or discomfort at this time. MD made aware of the admission and ordered Nitro and renal diet. All orders carried out and noted. On tele monitor SR heart rate of 90. Kept patient clean and comfortable in bed, call light with in patient reach, will continue to monitor accordingly.
[2017-09-02 10:30] VITALS: BP 135/76
[2017-09-02 12:06] LABS: TROPONIN I 0.297 ng/mL (0.00-0.056)
[2017-09-02 12:13] LABS: THYROID STIMULATING HORMONE 0.633 uIU/mL (0.358-3.74)
[2017-09-02] MEDS: NITROGLYCERIN PACKET 1 GM PACKET TOP SCH ×2 (12:26→22:18)
[2017-09-02 16:00] VITALS: BP_SYST 134; BP_SYST 154; BP_DIAS 86; BP_DIAS 90
[2017-09-02] MEDS ORDERED: ONDANSETRON HCL/PF 4 MG/2 ML VIAL IVP PRN (16:30)
[2017-09-02] MEDS ORDERED: ZOLPIDEM TARTRATE 5 MG TABLET PO PRN (16:30)
[2017-09-02] MEDS ORDERED: Z GUARD REMEDY 2 OZ OINT TP PRN (16:30)
[2017-09-02] MEDS ORDERED: ACETAMINOPHEN 325 MG TABLET PO PRN (16:30)
[2017-09-02] MEDS ORDERED: MAG HYDROX/AL HYDROX/SIMETH 30 ML UDC PO PRN (16:30)
[2017-09-02] MEDS: SEVELAMER CARBONATE 800 MG TABLET PO SCH (17:39)
[2017-09-02] MEDS: HYDROCODONE/APAP 5/325MG 1 EACH TABLET PO PRN (17:41)
--- NOTE | 2017-09-02 19:17 | NUR ---
telecommunications network engineer closing notes All needs provided, attended, and anticipated. Kept patient clean and comfortable in bed, call light with in patient reach, endorsed to next shift RN to continue care. on tele monitor SR heart rate of 86.
[2017-09-02 19:39] VITALS: BP 142/80
--- NOTE | 2017-09-02 20:33 | NUR ---
TELE/RN PATIENT IS AWAKE AT THIS TIME, ALERT, ORIENTED, COMFORTABLE, NO C/O PAIN, NO DISTRESS NOTED, PLAN OF CARE DISCUSSED, RE: STRESS TEST IN A.M., NPO STATUS AFTER MIDNIGHT, VERBALIZED UNDERSTANDING AND AGREEMENT WITH THE POC. WILL MONITOR.
[2017-09-02] MEDS: CARVEDILOL 12.5 MG TABLET PO SCH (21:09)
[2017-09-03 00:25] VITALS: BP 131/71
--- NOTE | 2017-09-03 02:55 | NUR ---
TELE/RN PATIENT IS SLEEPING AT THIS TIME, EASILY AROUSABLE, APPEAR COMFORTABLE, NO SIGNS OF DISTRESS NOTED, CALL LIGHT IN REACH. NPO POST MIDNIGHT. WILL MONITOR.
[2017-09-03 04:23] VITALS: BP 136/64
--- NOTE | 2017-09-03 06:21 | NUR ---
TELE/RN PATIENT IS SLEEPING AT THIS TIME, AROUSABLE, APPEAR COMFORTABLE, NO SIGNS OF DISTRESS NOTED, CALL LIGHT IN REACH. ALL NEEDS ATTENDED AT THIS TIME. WILL CONTINUE TO MONITOR.
[2017-09-03 07:25] LABS: BASOPHILS % (AUTO) 0.5 % (0.0-2.0); EOSINOPHILS # (AUTO) 0.3 /CMM (0.0-0.7); EOSINOPHILS % (AUTO) 5.2 % (0.0-6.0); HEMATOCRIT 29 % (39-51); HEMOGLOBIN 9.9 g/dL (13.5-17.5); LYMPHOCYTES # (AUTO) 1.2 /CMM (0.8-4.8); LYMPHOCYTES % (AUTO) 23.3 % (20.0-44.0); MEAN CORPUSCULAR HEMOGLOBIN 30 PG (26.0-33.0); MEAN CORPUSCULAR HGB CONC 35 g/dl (31.0-36.0); MEAN CORPUSCULAR VOLUME 88 fL (80-96); MONOCYTES # (AUTO) 0.6 /CMM (0.1-1.30); MONOCYTES % (AUTO) 12.6 % (2.0-12.0); NEUTROPHILS % (AUTO) 58.4 % (43.0-81.0); PLATELET COUNT (AUTO) 180 /CMM (150-450); RDW COEFFICIENT OF VARIATION 16.1 (11.5-15.0); RED BLOOD CELL COUNT(AUTO) 3.25 MIL/uL (4.5-6.0); WHITE BLOOD COUNT (AUTO) 5.1 K/uL (4.3-11.0)
--- NOTE | 2017-09-03 07:40 | NUR ---
RN OPENING NOTES RECEIVED PT. A/OX3. PT IS STABLE AND RESTING IN BED. NO S/S OF RESPIRATORY DISTRESS OR SOB. PT DOES NOT APPEAR TO BE IN PAIN AT THIS TIME. PT IS ON RA, O2 SAT WNL. IV ACCESS LOCATED ON R AC CURRENTLY HL. AV SHUNT NOTED ON LEFT UPPER ARM. PT IS NPO, SCHEDULED FOR NM STRESS TEST IN AM, CONSENT SIGNED AND PLACED IN CHART. SAFETY MEASURES IN PLACE, CALL LIGHT WITHIN REACH. WILL CONTINUE TO MONITOR.
[2017-09-03 07:46] LABS: CALCIUM, SERUM 9.6 mg/dL (8.5-10.1); MAGNESIUM 2.4 mg/dL (1.8-2.4); POTASSIUM 4.9 mmol/L (3.5-5.1)
[2017-09-03 07:49] LABS: CREATININE 9.5 mg/dL (0.6-1.3); PHOSPHORUS 8.3 mg/dL (2.5-4.9)
[2017-09-03 08:00] VITALS: BP 139/75
[2017-09-03] MEDS ORDERED: REGADENOSON 0.4 MG/5 ML DISP.SYRIN IVP ONE (08:00)
[2017-09-03] MEDS: SEVELAMER CARBONATE 800 MG TABLET PO SCH ×3 (09:57→17:27)
[2017-09-03] MEDS: CARVEDILOL 12.5 MG TABLET PO SCH ×2 (09:58→22:14)
[2017-09-03] MEDS: VIT B CMPLX 3/FA/VIT C/BIOTIN 1 TAB TABLET PO SCH (09:59)
[2017-09-03] MEDS: NITROGLYCERIN PACKET 1 GM PACKET TOP SCH ×2 (11:00→22:13)
[2017-09-03 16:00] VITALS: BP 141/76
[2017-09-03] MEDS: HYDROCODONE/APAP 5/325MG 1 EACH TABLET PO PRN (16:09)
--- NOTE | 2017-09-03 18:30 | NUR ---
RN CLOSING NOTES PT IN BED RESTING. NO S/S OF SOB OR RESP DISTRESS. PT HAS C/O MILD PAIN 3/10 ON ANTERIOR PORTION OF RIGHT CHEST. TELE MONITORING DISCONTINUED. NM STRESS TEST PERFORMED, RESULTS FOUND EF OF 37%, PER MD NOTE; WILL CONTINUE TO MONITOR. ALL PT NEEDS ANTICIPATED AND MET. SAFETY MEASURES IN PLACE. CALL LIGHT WITHIN REACH. WILL ENDORSE TO [place] MACHINE OPERATOR FOR ERIC.
--- NOTE | 2017-09-03 19:30 | NUR ---
MS/RN RECEIVE PATIENT AWAKE, ALERT, ORIENTED, COMFORTABLE, NO C/O PAIN, NO DISTRESS NOTED, CALL LIGHT IN REACH. WILL MONITOR.
[2017-09-03 20:00] VITALS: BP 156/78
--- NOTE | 2017-09-04 06:44 | NUR ---
MS/RN PATIENT IS SLEEPING, EASILY AROUSABLE, APPEAR COMFORTABLE, NO CHANGE IN CONDITION. ALL NEEDS ATTENDED AT THIS TIME. WILL CONTINUE TO MONITOR.
--- NOTE | 2017-09-04 07:30 | NUR ---
MSRN OPENING NOTE PT RECEIVED A&0X3 RESTING IN BED REQUESTING MORE SLEEP. PT POSSIBLE HD TODAY. PT TOLERATING ROOM AIR AND DENIES SOB WITH SAO2 96%. PT REPORTS MINOR CHEST PAIN WHEN MOVING IN BED 09/20. PT WITH IVC AT R AC INTACT AND SALINE FLUSH PATENT. PT BED IN LOWEST LOCKED POSITION WITH HANDRAILSX2 AND CALL ANTONY WITHIN REACH. PT BEEFED ON TODAY'S POC AND IS WITHOUT CONCERN OR COMPLAINT AT THIS TIME.
[2017-09-04 08:00] VITALS: BP_SYST 136; BP_SYST 148; BP_DIAS 76; BP_DIAS 82
[2017-09-04] MEDS: VIT B CMPLX 3/FA/VIT C/BIOTIN 1 TAB TABLET PO SCH (08:48)
[2017-09-04] MEDS: SEVELAMER CARBONATE 800 MG TABLET PO SCH ×3 (08:48→17:35)
[2017-09-04] MEDS: CARVEDILOL 12.5 MG TABLET PO SCH ×2 (08:49→20:51)
[2017-09-04] MEDS: NITROGLYCERIN PACKET 1 GM PACKET TOP SCH ×2 (11:00→22:41)
--- NOTE | 2017-09-04 11:00 | NUR ---
WHITNEY. NITRO APPLICATION HELD R/T HD TODAY.
[2017-09-04 12:00] VITALS: BP 148/82
[2017-09-04 16:00] VITALS: BP 147/77
--- NOTE | 2017-09-04 17:36 | NUR ---
MSRN. PT REFUSING RENELVA CURRENTLY RECEIVING DIALYSIS AND WILL NOT EAT.
--- NOTE | 2017-09-04 18:02 | NUR ---
MSRN CLOSING NOTE. PT REMAINS A&0X3 AND TOLERATING ROOM AIR WITHOUT SOB AND SAO2 WNL. PT REPORTS MINOR RIDE SIDE CHEST WALL PAIN BUT REFUSED ANALGESIA THROUGHOUT SHIFT. PT WITH IVC AT R AC INTACT AND PATENT AND HD CATH L UA. PT RECEIVING HD NOW. BED IN LOWEST LOCKED POSITION WITH HANDRAILSX2 AND CALL ANTONY WITHIN REACH. ALL DAY NURSE DUTIES ATTENDED TO AND PT IS WITHOUT CONCERN COMPLAINT AT THIS TIME. WILL ENDORSE TO NIGHT NURSE AT BEDSIDE.
--- NOTE | 2017-09-04 18:25 | NUR ---
MSRN. PT WITH 2500ML REMOVED WITH HD.
--- NOTE | 2017-09-04 19:30 | NUR ---
RN NOTES RECEIVED PATIENT IN BED AWAKE, AO X E, ABLE TO MAKE NEEDS KNOWN. NO ACUTE DISTRESS NOTED. DENIES ANY PAIN AT THIS TIME. IV SITE PATENT, INTACT; FLUSHED. MANINDER AV SHUNT INTACT. SAFETY REMINDERS GIVEN. ON LOW BED WITH BILATERAL UPPER SIDE RAILS UP. CALL ANTONY WITHIN EASY REACH. WILL CONTINUE TO MONITOR.
[2017-09-04 20:00] VITALS: BP 161/95
--- NOTE | 2017-09-05 06:13 | NUR ---
RN NOTES PATIENT ASLEEP, EASILY AROUSABLE. RESPIRATIONS EVEN. NO SIGNS OF PAIN NOTED. DUE MEDS GIVEN WITH NO ASE NOTED. NEEDS ATTENDED. SAFETY PRECAUTIONS AND COMFORT MEASURES IN PLACE. WILL GIVE REPORT TO DAY SHIFT FOR CONTINUITY OF CARE.
[2017-09-05 08:00] VITALS: BP_SYST 127; BP_SYST 131; BP_DIAS 70; BP_DIAS 86
--- NOTE | 2017-09-05 08:00 | NUR ---
m/s cheese pancake roller: initial assessment received pt in bed awake, a/ox4, ambulatory. no c/o pain or any discomfort. vss. instructed to call for assistance. will continue to monitor.
[2017-09-05] MEDS: CARVEDILOL 12.5 MG TABLET PO SCH (08:37)
[2017-09-05] MEDS: VIT B CMPLX 3/FA/VIT C/BIOTIN 1 TAB TABLET PO SCH (08:37)
[2017-09-05] MEDS: SEVELAMER CARBONATE 800 MG TABLET PO SCH ×2 (08:37→13:43)
--- NOTE | 2017-09-05 09:45 | NUR ---
m/s filtration plant operator: md visit seen by dr. tomlinson with order to d'c home after cta. new iv to rac, gauge #18 inserted per clam grader and notified tech after iv insertion. gauge#20 removed with tip intact. pt aware for d'c planning home today after cta. instructed to call for assistance.
[2017-09-05] MEDS: NITROGLYCERIN PACKET 1 GM PACKET TOP SCH (11:22)
--- NOTE | 2017-09-05 12:20 | NUR ---
m/s supervisor shaving and splitting: notes stat ekg completed. pt for cta with 3d imaging, awaiting to be picked up. consent in chart. will continue to monitor. mother at bedside.
--- NOTE | 2017-09-05 12:35 | NUR ---
m/s field director: notes pt picked up via bed via acls protocol accompanied by 2 licensed staff. mother remains at bedside.
[2017-09-05] MEDS ORDERED: CT SWABBABLE VALVE TRANS SET 1 EA INFUS.SET MC ONE (12:41)
[2017-09-05] MEDS ORDERED: IOHEXOL-350 100 ML VIAL IV ONE (12:41)
[2017-09-05] MEDS ORDERED: IV NS 0.9% 250 ML IV ONE (12:41)
[2017-09-05] MEDS ORDERED: METOPROLOL TARTRATE INJ 5 MG/5 ML AMPUL ONE ×2 (12:57→13:07)
[2017-09-05 13:30] VITALS: BP 138/78
--- NOTE | 2017-09-05 13:30 | NUR ---
m/s software engineer mobile: notes pt back from cta via bed accompanied by [address] rajan aware. pt for d'c home today if cta negative. awaiting for results. will continue to monitor.
--- NOTE | 2017-09-05 15:25 | NUR ---
m/s heddler tier: d'c instructions cta resulted and given to pt. discharged instructions given to pt and verbalized understanding, stated, "i will f/u with dr. rajan in one week and i have hd tx tomorrow as schedule." all copies provided. belongings returned to pt. mother remains at bedside.
--- NOTE | 2017-09-05 15:30 | NUR ---
m/s block chopper hand: notes h/l removed with tip intact with no bleeding, no redness, and no swelling noted.
--- NOTE | 2017-09-05 15:35 | NUR ---
m/s deployment technician: discharged discharged home in stable condition with belongings accompanied by mother.
== END 2017-09-05 15:37 | disposition home or self-care (01) | DRG 190 ==
LOC: ER 07:51 → TELE 09:51 → UNDODISIN 09-05 15:37
PROVIDERS: ADMIT Internal Medicine; ATTEND Internal Medicine
PROC: 5A1D70Z Performance of Urinary Filtration, Intermittent, Less than 6 Hours Per Day (ICD-10-PCS; principal; 2017-09-04)
DX: J47.9 Bronchiectasis, uncomplicated (principal); N18.6 End stage renal disease; I48.92 Unspecified atrial flutter; N25.81 Secondary hyperparathyroidism of renal origin; I12.9 Hypertensive chronic kidney disease with stage 1 through stage 4 chronic kidney disease, or unspecified chronic kidney disease; Z99.2 Dependence on renal dialysis; R00.2 Palpitations; Z85.59 Personal history of malignant neoplasm of other urinary tract organ; Z90.5 Acquired absence of kidney
CPT/HCPCS: 36415; 71045-TC; 71250-TC; 75574; 80048-TC; 80061-TC; 82306; 83735-TC; 84100-TC; 84439-TC; 84443-TC; 84484-TC; 85025-TC; 85730-TC; 87040-TC; 87081-TC; 90935-TC; 93307-TC; A4606; A9502; J1956; J2270; J2405; J2785; J3490; J7050; Q9967; Z7610

== ENCOUNTER 2018-02-12 08:07 | Emergency (ER) | payer MEDICARE, MEDICAID ==
[~2018-02-12] VITALS: Ht 167.6 cm; Wt 75.7 kg
--- NOTE | 2018-02-12 08:15 | NUR ---
PRESENTS TO ER C/O LEFT ARM, LEFT LEG, RIBS PAIN S/P TRIP AND FALL YESTERDAY. A/OX 4, BREATHING EVEN AND UNLABORED. NO SOB, NAD, VITALS STABLE. NO TRAUMA NOTED. SAFETY AND COMFORT MEASURES IN PLACE. AWAITING MD ORDERS.
--- NOTE | 2018-02-12 08:59 | NUR ---
PATIENT TAKEN TO RADIOLOGY VIA STRETCHER.
[2018-02-12] MEDS ORDERED: HYDROCODONE/APAP 5/325MG 1 EACH TABLET PO ONE (09:00)
[2018-02-12] MEDS ORDERED: HYDROCODONE/APAP 5/325MG 1 EACH TABLET ONE (09:02)
--- NOTE | 2018-02-12 09:13 | NUR ---
PATIENT RETURNED FROM RADIOLOGY IN STABLE CONDITION.
--- NOTE | 2018-02-12 09:16 | NUR ---
MEDICATED PATIENT PER MD ORDERS.
--- NOTE | 2018-02-12 11:15 | NUR ---
PT. VERBALIZED UNDERSTANDING OF AFTERCARE INSTRUCTIONS.Patient discharged to home in stable condition. Written and verbal after care instructions given. Patient verbalizes understanding of instruction.
[2018-02-12 11:17] VITALS: BP 105/55
== END 2018-02-12 11:18 | disposition home or self-care (01) ==
LOC: ER 08:12
DX: M79.602 Pain in left arm (principal); M79.605 Pain in left leg; R07.81 Pleurodynia; I12.0 Hypertensive chronic kidney disease with stage 5 chronic kidney disease or end stage renal disease; N18.6 End stage renal disease; J84.89 Other specified interstitial pulmonary diseases; I51.7 Cardiomegaly; Z99.2 Dependence on renal dialysis; Z85.51 Personal history of malignant neoplasm of bladder; Z90.89 Acquired absence of other organs; Z90.5 Acquired absence of kidney; Z90.6 Acquired absence of other parts of urinary tract; Z90.79 Acquired absence of other genital organ(s); Z90.49 Acquired absence of other specified parts of digestive tract; W01.0XXA Fall on same level from slipping, tripping and stumbling without subsequent striking against object, initial encounter; Y93.01 Activity, walking, marching and hiking; Y92.89 Other specified places as the place of occurrence of the external cause; Y99.8 Other external cause status
CPT/HCPCS: 71045; 73030; 73503; 99284; A4606; 73502; Z7610

== ENCOUNTER 2018-08-02 12:26 | Emergency (ER) | payer MEDICARE, MEDICAID ==
[~2018-08-02] VITALS: Ht 167.6 cm; Wt 74.8 kg
--- NOTE | 2018-08-02 12:34 | NUR ---
BIB SELF W C/O ABDOMINAL PAIN , N/V SINCE YESTERDAY. LAST DIALYSIS=07/02/18, TO ER BED 10, HOOKED TO MONITOR, AWAITING MD BERMUDEZ
[2018-08-02 12:55] LABS: BASOPHILS % (AUTO) 0.3 % (0.0-2.0); EOSINOPHILS % (AUTO) 5.5 % (0.0-6.0); HEMATOCRIT 41 % (39-51); HEMOGLOBIN 13.3 g/dL (13.5-17.5); LYMPHOCYTES # (AUTO) 0.5 /CMM (0.8-4.8); LYMPHOCYTES % (AUTO) 12.9 % (20.0-44.0); MEAN CORPUSCULAR HGB CONC 33 g/dl (31.0-36.0); MEAN CORPUSCULAR VOLUME 91 fL (80-96); MONOCYTES # (AUTO) 0.7 /CMM (0.1-1.30); MONOCYTES % (AUTO) 17.4 % (2.0-12.0); NEUTROPHILS # (AUTO) 2.5 /CMM (1.8-8.9); NEUTROPHILS % (AUTO) 63.9 % (43.0-81.0); PLATELET COUNT (AUTO) 183 /CMM (150-450); RED BLOOD CELL COUNT(AUTO) 4.43 MIL/uL (4.5-6.0); WHITE BLOOD COUNT (AUTO) 3.9 K/uL (4.3-11.0)
[2018-08-02] MEDS ORDERED: ONDANSETRON HCL/PF 4 MG/2 ML VIAL ONE (12:59)
[2018-08-02] MEDS ORDERED: IV NS 0.9% 1,000 ML BAG IV ONE ×2 (13:00)
[2018-08-02] MEDS ORDERED: ONDANSETRON HCL/PF - ER 4 MG/2 ML VIAL IV ONE (13:00)
[2018-08-02 13:11] LABS: ALBUMIN 3.5 g/dL (3.4-5.0); BILIRUBIN,DIRECT 0.2 mg/dL (0.0-0.2); BILIRUBIN,TOTAL 0.9 mg/dL (0.2-1.0); CALCIUM, SERUM 8.1 mg/dL (8.5-10.1); TOTAL PROTEIN, SERUM 7.3 g/dL (6.4-8.2)
[2018-08-02 13:16] LABS: CREATININE 10.6 mg/dL (0.6-1.3)
[2018-08-02] MEDS ORDERED: MORPHINE SULFATE INJ 2 MG/ML DISP.SYRIN IV ONE (13:30)
[2018-08-02 13:33] LABS: EOSINOPHILS % (MANUAL) 6 % (0-4); LYMPHOCYTES % (MANUAL) 11 % (16-48); MONOCYTES % (MANUAL) 18 % (0-11.0); NEUTROPHILS % (MANUAL) 65 (42-76)
[2018-08-02] MEDS ORDERED: MORPHINE SULFATE INJ 4 MG/ML DISP.SYRIN ONE (13:42)
--- NOTE | 2018-08-02 14:00 | NUR ---
PO CHALLENGE DONE. PT TOLERATED FLUID WELL
--- NOTE | 2018-08-02 14:32 | NUR ---
IV removed. Catheter intact and site benign. Pressure and 4x4 applied to site. No bleeding noted.Patient discharged to home in stable condition. Written and verbal after care instructions given. Patient verbalizes understanding of instruction.
[2018-08-02 14:34] VITALS: BP 115/68
== END 2018-08-02 14:35 | disposition home or self-care (01) ==
LOC: ER 12:34
DX: R11.2 Nausea with vomiting, unspecified (principal); R19.7 Diarrhea, unspecified; R10.9 Unspecified abdominal pain; I12.0 Hypertensive chronic kidney disease with stage 5 chronic kidney disease or end stage renal disease; N18.6 End stage renal disease; K56.609 Unspecified intestinal obstruction, unspecified as to partial versus complete obstruction; L98.8 Other specified disorders of the skin and subcutaneous tissue; Z90.79 Acquired absence of other genital organ(s); Z90.89 Acquired absence of other organs; Z90.5 Acquired absence of kidney; Z99.2 Dependence on renal dialysis
CPT/HCPCS: 36415; 80048-TC; 80076-TC; 83690-TC; 85025-TC; A4606; J2270; J2405; J7030; J7040; Z7610

== ENCOUNTER 2018-10-08 07:48 | Emergency (ER) | payer MEDICARE, MEDICAID ==
[~2018-10-08] VITALS: Ht 167.6 cm; Wt 75.3 kg
--- NOTE | 2018-10-08 07:50 | NUR ---
BIB SELF, A DIALYSIS PATIENT, "RIGHT KNEE "POPPED GOING DOWN STAIRS LAST NIGHT", TO ER BED 3, HOOKED TO MONITOR, AWAITING MD BERMUDEZ
--- NOTE | 2018-10-08 08:08 | NUR ---
DR SINGH AT BEDSIDE
--- NOTE | 2018-10-08 09:10 | NUR ---
Patient discharged to home in stable condition. Written and verbal after care instructions given. Patient verbalizes understanding of instruction.
[2018-10-08 09:12] VITALS: BP 110/80
== END 2018-10-08 09:20 | disposition home or self-care (01) ==
LOC: ER 07:52
DX: S83.8X1A Sprain of other specified parts of right knee, initial encounter (principal); I12.0 Hypertensive chronic kidney disease with stage 5 chronic kidney disease or end stage renal disease; N18.6 End stage renal disease; Z99.2 Dependence on renal dialysis; Z90.89 Acquired absence of other organs; Z98.890 Other specified postprocedural states; Z79.899 Other long term (current) drug therapy; X58.XXXA Exposure to other specified factors, initial encounter; Y93.89 Activity, other specified; Y92.89 Other specified places as the place of occurrence of the external cause; Y99.8 Other external cause status
CPT/HCPCS: 73564-TC

== ENCOUNTER 2018-10-30 07:50 | Inpatient (IN) | payer MEDICARE, MEDICAID ==
[~2018-10-30] VITALS: Ht 167.6 cm; Wt 75.7 kg
[2018-10-30] MEDS ORDERED: HYDROMORPHONE INJ 2 MG/ML DISP.SYRIN ONE (10:17)
[2018-10-30] MEDS ORDERED: KETOROLAC TROMETHAMINE INJ 30 MG/ML VIAL ONE (10:17)
[2018-10-30] MEDS ORDERED: MIDAZOLAM HCL 2 MG/2ML VIAL ONE (10:17)
[2018-10-30 11:09] LABS: POTASSIUM 4.5 mmol/L (3.5-5.1)
[2018-10-30 11:11] LABS: CREATININE 9.4 mg/dL (0.6-1.3)
[2018-10-30 11:49] LABS: BASOPHILS % (AUTO) 0.5 % (0.0-2.0); EOSINOPHILS % (AUTO) 4.4 % (0.0-6.0); HEMATOCRIT 30 % (39-51); HEMOGLOBIN 10.4 g/dL (13.5-17.5); LYMPHOCYTES # (AUTO) 1.1 /CMM (0.8-4.8); LYMPHOCYTES % (AUTO) 23.2 % (20.0-44.0); MEAN CORPUSCULAR HGB CONC 34 g/dl (31.0-36.0); MEAN CORPUSCULAR VOLUME 89 fL (80-96); MONOCYTES # (AUTO) 0.5 /CMM (0.1-1.30); MONOCYTES % (AUTO) 10.4 % (2.0-12.0); NEUTROPHILS # (AUTO) 2.9 /CMM (1.8-8.9); NEUTROPHILS % (AUTO) 61.5 % (43.0-81.0); PLATELET COUNT (AUTO) 172 /CMM (150-450); WHITE BLOOD COUNT (AUTO) 4.7 K/uL (4.3-11.0)
[2018-10-30] MEDS ORDERED: HYDROMORPHONE 1 MG/1 ML DISP.SYRIN ONE (11:51)
--- NOTE | 2018-10-30 12:40 | NUR ---
RN NOTES RECEIVED PATIENT FROM OR VIA BED. PATIENT ALERT AND ORIENTED X4, ABLE TO MAKE NEEDS KNOWN. BREATHING EVEN AND UNLABORED. ON ROOM AIR SATING FINE. PATIENT MADE COMFORTABLE IN BED. WWITH COMPLAINTS OF PAIN 02/17- WILL ADMINISTER DUE MEDICATION. VITAL SIGNS TAKEN AND NOTED. SKIN ASSESSMENT DONE- SKIN INTACT. IV LINE NOTED ON THE R WRIST G 20: IN PLACE AND INTACT. PATENT ON FLUSHING. PATIENT ORIENTED TO FLOOR AND USE OF CALL LIGHT. SAFETY MEASURES PUT IN PLACE. CALL LIGHT PLACED WITHIN REACH, WILL F/U ADMITTING ORDERS. WILL CONTINUE TO MONITOR PATIENT
[2018-10-30] MEDS ORDERED: CALC667C6 PO (13:21)
[2018-10-30] MEDS ORDERED: HYDR-4354 PO (13:22)
[2018-10-30] MEDS ORDERED: MORPHINE SULFATE INJ 2 MG/ML DISP.SYRIN IV PRN (14:00)
[2018-10-30] MEDS ORDERED: ONDANSETRON HCL/PF 4 MG/2 ML VIAL IVP PRN ×2 (14:00→17:00)
[2018-10-30] MEDS ORDERED: ZOLPIDEM TARTRATE 5 MG TABLET PO PRN ×2 (14:00→17:00)
[2018-10-30] MEDS ORDERED: ACETAMINOPHEN 325 MG TABLET PO PRN ×2 (14:00→17:00)
[2018-10-30] MEDS ORDERED: MAG HYDROX/AL HYDROX/SIMETH 30 ML UDC PO PRN ×2 (14:00→17:00)
[2018-10-30] MEDS ORDERED: Z GUARD REMEDY 2 OZ OINT TP PRN ×2 (14:00→17:00)
[2018-10-30] MEDS ORDERED: MAGNESIUM HYDROXIDE 30 ML UDC PO PRN ×2 (14:00→17:00)
[2018-10-30] MEDS ORDERED: HYDROCODONE/APAP 10/325MG 1 EA TABLET PO PRN (14:00)
[2018-10-30] MEDS ORDERED: HYDROCODONE/APAP 5/325MG 1 EACH TABLET PO PRN ×2 (14:00→17:00)
[2018-10-30] MEDS: HYDROCODONE/APAP 10/325MG 1 EA TABLET PO PRN (15:31)
--- NOTE | 2018-10-30 16:00 | NUR ---
RN NOTES INTERVIEW DONE WITH THE PATIENT. NO PERTINENT FAMILY HISTORY OBTAINED FROM THE PATIENT.
[2018-10-30] MEDS: CALCIUM ACETATE 667 MG TABLET PO SCH (18:08)
[2018-10-30] MEDS: SEVELAMER CARBONATE 800 MG TABLET PO SCH (18:08)
[2018-10-30 19:04] VITALS: BP 133/72
--- NOTE | 2018-10-30 19:39 | NUR ---
RN NOTES ENDORSED FOR CONTINUITY OF CARE. NO ACUTE CHANGES WITHIN THE SHIFT. ALL NURSING NEEDS ATTENDED AND MET. SAFETY MEASURES KEPT IN PLACE AT ALL TIMES. CALL LIGHT PLACED WITHIN REACH.
[2018-10-30 20:00] VITALS: BP 141/59
[2018-10-31] VITALS: BP 137/70
[2018-10-31] MEDS: HYDROCODONE/APAP 10/325MG 1 EA TABLET PO PRN ×3 (03:47→22:52)
[2018-10-31 04:00] VITALS: BP 157/86
[2018-10-31 06:38] LABS: CALCIUM, SERUM 8.3 mg/dL (8.5-10.1); MAGNESIUM 2.6 mg/dL (1.8-2.4); PHOSPHORUS 5.8 mg/dL (2.5-4.9); POTASSIUM 5.2 mmol/L (3.5-5.1)
[2018-10-31 06:39] LABS: CREATININE 11.3 mg/dL (0.6-1.3)
[2018-10-31 06:40] LABS: BASOPHILS % (AUTO) 0.1 % (0.0-2.0); HEMATOCRIT 30 % (39-51); HEMOGLOBIN 10.3 g/dL (13.5-17.5); LYMPHOCYTES # (AUTO) 0.7 /CMM (0.8-4.8); LYMPHOCYTES % (AUTO) 12.9 % (20.0-44.0); MEAN CORPUSCULAR HGB CONC 34 g/dl (31.0-36.0); MEAN CORPUSCULAR VOLUME 89 fL (80-96); MONOCYTES # (AUTO) 0.5 /CMM (0.1-1.30); MONOCYTES % (AUTO) 8.3 % (2.0-12.0); NEUTROPHILS # (AUTO) 4.6 /CMM (1.8-8.9); NEUTROPHILS % (AUTO) 78.7 % (43.0-81.0); PLATELET COUNT (AUTO) 173 /CMM (150-450); RED BLOOD CELL COUNT(AUTO) 3.38 MIL/uL (4.5-6.0); WHITE BLOOD COUNT (AUTO) 5.8 K/uL (4.3-11.0)
--- NOTE | 2018-10-31 07:53 | NUR ---
PHOTOGRAPHER SCIENTIFIC OPENING NOTES RECEIVED BEDSIDE REPORT PATIENT ASLEEP ABLE TO AROUSE WITH VOICE AND TOUCH. A/O X4 TAJIK AND M[place]ICAN SPEAKING NO SIGNS OR SYMPTOMS OF RESPIRATORY DISTRESS C/O PAIN 4/5 SAYS WILL TAKE PAIN MEDS AFTER FOOD SETTLES. RIGHT LEG ELEVATED IN IMMOBILIZER NO DRAINAGE NOTED ON DRESSING. SINUS RHYTHM ON MONITOR SAFETY PRECAUTIONS IN PLACE BED IN LOW POSITION CALL LIGHT WITHIN REACH. PATIENT WILL BE MOVING TO ROOM 111-1 . UNABLE TO DO HD IN CURRENT ROOM. WILL CONT TO MONITOR
[2018-10-31 08:00] VITALS: BP 122/67
[2018-10-31] MEDS: SEVELAMER CARBONATE 800 MG TABLET PO SCH ×3 (08:25→17:59)
[2018-10-31] MEDS: CALCIUM ACETATE 667 MG TABLET PO SCH ×3 (08:25→17:59)
[2018-10-31] MEDS: CARVEDILOL 12.5 MG TABLET PO SCH (08:25)
[2018-10-31 12:00] VITALS: BP_SYST 116; BP_SYST 123; BP_DIAS 64; BP_DIAS 77
[2018-10-31 16:00] VITALS: BP 122/65
--- NOTE | 2018-10-31 19:19 | NUR ---
RN MS CLOSING NOTES BEDSIDE REPORT GIVEN PT ASLEEP AT THIS TIME ABLE TO AROUSE WITH VOICE AND TOUCH. HD TODAY WITH 2 LTRS REMOVED. APPETITE GOOD. AWAITING FOR MEDICA; CLEARANCE FROM SURGEON FOR DISCHARGE. SAFETY PRECAUTIONS IN PLACE BED IN LOW POSITION CALL LIGHT WITHIN REACH. ALL NEEDS MET. WILL ENDORSE TO NOC.
[2018-10-31 20:00] VITALS: BP 106/60
[2018-11-01 04:00] VITALS: BP 128/68
--- NOTE | 2018-11-01 06:00 | NUR ---
pt alert, oriented,bedrest,awaiting for md order for activity, pt with immobilizer, already have crutches ,per pt he needs to see PT to instruct and teaching with activity and ambulation. pain medicated with norco and slept all night, no numbness, no tingling, warm to touch, vss,afebrile all needs attended.call light at reached.
[2018-11-01 08:00] VITALS: BP_SYST 78
[2018-11-01 08:03] VITALS: BP 151/78
[2018-11-01] MEDS: CALCIUM ACETATE 667 MG TABLET PO SCH (08:06)
[2018-11-01] MEDS: SEVELAMER CARBONATE 800 MG TABLET PO SCH (08:06)
[2018-11-01 08:07] VITALS: BP 151/78
[2018-11-01] MEDS: CARVEDILOL 12.5 MG TABLET PO SCH (08:07)
--- NOTE | 2018-11-01 11:07 | NUR ---
RN MS DISCHARGE NOTES PATIENT DISCHARGE AND EXIT CARE EXPLAINED. CLEARED BY PT. ALL DOCUMENT SIGNED. LEFT VIA WHEELCHAIR HOME WITH MOTHER
== END 2018-11-01 11:00 | disposition home or self-care (01) | DRG 488 ==
LOC: DS 07:50 → TELE1 13:18 → MEDSG1 10-31 16:50
PROVIDERS: ADMIT Internal Medicine; ATTEND Internal Medicine
PROC: 0MQN0ZZ Repair Right Knee Bursa and Ligament, Open Approach (ICD-10-PCS; principal; 2018-10-30)
DX: S76.111A Strain of right quadriceps muscle, fascia and tendon, initial encounter (principal); N18.6 End stage renal disease; I12.0 Hypertensive chronic kidney disease with stage 5 chronic kidney disease or end stage renal disease; N25.81 Secondary hyperparathyroidism of renal origin; X58.XXXA Exposure to other specified factors, initial encounter; Y92.9 Unspecified place or not applicable; Z99.2 Dependence on renal dialysis; Z90.5 Acquired absence of kidney; Z90.49 Acquired absence of other specified parts of digestive tract; D64.9 Anemia, unspecified; Z85.51 Personal history of malignant neoplasm of bladder
CPT/HCPCS: 36415; 80048-TC; 80061-TC; 83735-TC; 84100-TC; 85025-TC; 85610-TC; 85730-TC; 87081-TC; 90935-TC; C1713; G0378; J0690; J1100; J1170; J1885; J2250; J2270; J2405; J2704; J3490

== ENCOUNTER 2019-02-13 11:54 | Emergency (ER) | payer MEDICARE, MEDICAID ==
[~2019-02-13] VITALS: Ht 162.6 cm; Wt 73.5 kg
[~2019-02-13 11:54] MED LIST changes: +CALC667C6 PO; +HYDR-4354 PO; -VIT1TABL46 PO
--- NOTE | 2019-02-13 11:54 | NUR ---
PT BIBSELF FOR ABD PAIN X AM; -N/V/D; PT AAOX4, -SOB, NAD NOTED, VSS, PENDING MD BERMUDEZ
[2019-02-13] MEDS ORDERED: ONDANSETRON HCL/PF 4 MG/2 ML VIAL ONE (12:20)
[2019-02-13] MEDS ORDERED: MORPHINE SULFATE INJ 4 MG/ML DISP.SYRIN ONE (12:20)
[2019-02-13 12:23] LABS: BASOPHILS % (AUTO) 0.5 % (0.0-2.0); HEMATOCRIT 38 % (39-51); HEMOGLOBIN 12.7 g/dL (13.5-17.5); LYMPHOCYTES # (AUTO) 0.7 /CMM (0.8-4.8); LYMPHOCYTES % (AUTO) 13.1 % (20.0-44.0); MEAN CORPUSCULAR HGB CONC 33 g/dl (31.0-36.0); MEAN CORPUSCULAR VOLUME 89 fL (80-96); MONOCYTES # (AUTO) 0.5 /CMM (0.1-1.30); MONOCYTES % (AUTO) 8.7 % (2.0-12.0); NEUTROPHILS % (AUTO) 75.7 % (43.0-81.0); PLATELET COUNT (AUTO) 162 /CMM (150-450); RED BLOOD CELL COUNT(AUTO) 4.29 MIL/uL (4.5-6.0); WHITE BLOOD COUNT (AUTO) 5.3 K/uL (4.3-11.0)
[2019-02-13 12:30] LABS: CALCIUM, SERUM 8.9 mg/dL (8.5-10.1); CREATININE 6.6 mg/dL (0.6-1.3); POTASSIUM 4.8 mmol/L (3.5-5.1)
[2019-02-13] MEDS ORDERED: ONDANSETRON HCL/PF 4 MG/2 ML VIAL IVP ONE (12:30)
[2019-02-13] MEDS ORDERED: MORPHINE SULFATE INJ 2 MG/ML DISP.SYRIN IV ONE (12:30)
[2019-02-13] MEDS ORDERED: IV NS 0.9% 1,000 ML BAG IV ONE (12:30)
--- NOTE | 2019-02-13 12:32 | NUR ---
PT DOES NOT PRODUCE URINE, ARIES MARTINEZ MADE AWARE.
[2019-02-13 12:35] LABS: ALBUMIN 4.2 g/dL (3.4-5.0); BILIRUBIN,DIRECT 0.1 mg/dL (0.0-0.2); BILIRUBIN,TOTAL 0.7 mg/dL (0.2-1.0); TOTAL PROTEIN, SERUM 8.3 g/dL (6.4-8.2)
--- NOTE | 2019-02-13 12:57 | NUR ---
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
--- NOTE | 2019-02-13 13:38 | NUR ---
Patient discharged to home in stable condition. Written and verbal after care instructions given. Patient verbalizes understanding of instruction. IV removed. Catheter intact and site benign. Pressure and 4x4 applied to site. No bleeding noted.
[2019-02-13 13:39] VITALS: BP 132/80
== END 2019-02-13 13:40 | disposition home or self-care (01) ==
LOC: ER 11:54
DX: R10.84 Generalized abdominal pain (principal); I12.0 Hypertensive chronic kidney disease with stage 5 chronic kidney disease or end stage renal disease; N18.6 End stage renal disease; Z99.2 Dependence on renal dialysis; Z90.89 Acquired absence of other organs; Z98.890 Other specified postprocedural states; Z79.899 Other long term (current) drug therapy
CPT/HCPCS: 36415; 74176; 80048; 80076; 83690; 85025; 96374; 96375; 99284; J2270; J2405; J7030

== ENCOUNTER 2019-03-22 04:01 | Inpatient (IN) | payer MEDICARE, MEDICAID ==
[~2019-03-22] VITALS: Ht 167.6 cm; Wt 75.3 kg
--- NOTE | 2019-03-22 04:20 | NUR ---
PT BIBSELF C/O TINGLING IN BILAT ARMS AND LEGS X 4 HOURS. DIALYSIS PATIENT, STATES USUALLY HAPPENS WHEN HIS POTASSIUM IS HIGH. PT C/O HEADACHE AND CHEST DISCOMFORT. PT AOX3. NAD NOTED. RESP EVEN AND UNLABORED. PT ON MONITOR IN BED 2. WILL CONTINUE TO MONITOR.
--- NOTE | 2019-03-22 04:43 | NUR ---
PHLEB AT BEDSIDE FOR LAB DRAW
[2019-03-22 04:49] LABS: BASOPHILS % (AUTO) 0.7 % (0.0-2.0); EOSINOPHILS % (AUTO) 3.7 % (0.0-6.0); HEMATOCRIT 35 % (39-51); LYMPHOCYTES # (AUTO) 1.6 /CMM (0.8-4.8); MEAN CORPUSCULAR HGB CONC 34 g/dl (31.0-36.0); MEAN CORPUSCULAR VOLUME 89 fL (80-96); MONOCYTES # (AUTO) 0.4 /CMM (0.1-1.30); MONOCYTES % (AUTO) 8.4 % (2.0-12.0); NEUTROPHILS # (AUTO) 2.9 /CMM (1.8-8.9); NEUTROPHILS % (AUTO) 56.2 % (43.0-81.0); PLATELET COUNT (AUTO) 181 /CMM (150-450); RED BLOOD CELL COUNT(AUTO) 3.96 MIL/uL (4.5-6.0); WHITE BLOOD COUNT (AUTO) 5.2 K/uL (4.3-11.0)
[2019-03-22 05:14] LABS: CALCIUM, SERUM 9.3 mg/dL (8.5-10.1)
[2019-03-22 05:16] LABS: POTASSIUM 7.5 mmol/L (3.5-5.1)
[2019-03-22 05:17] LABS: CREATININE 12.9 mg/dL (0.6-1.3)
--- NOTE | 2019-03-22 05:28 | NUR ---
RIGHT AC 20G INITIATED. PT TOLERATED WELL.
--- NOTE | 2019-03-22 05:33 | NUR ---
TECH AT BEDSIDE FOR EKG
[2019-03-22] MEDS ORDERED: DEXTROSE 50%-WATER 50 ML DISP.SYRIN ONE (05:52)
[2019-03-22] MEDS ORDERED: INSULIN REGULAR, HUMAN 100 UNIT/ML 10 ML VIAL ONE (05:52)
[2019-03-22] MEDS ORDERED: SODIUM POLYSTYRENE SULFONATE 15 G/60 ML BOTTLE ONE (05:52)
[2019-03-22] MEDS ORDERED: ALBUTEROL FS 2.5 MG/3 ML VIAL.NEB ONE (05:53)
[2019-03-22] MEDS ORDERED: SODIUM POLYSTYRENE SULF. PWD 15 GM UDC PO ONE (06:00)
[2019-03-22] MEDS ORDERED: INSULIN REGULAR, HUMAN 100 UNIT/ML 10 ML VIAL IV ONE (06:00)
[2019-03-22] MEDS ORDERED: DEXTROSE 50%-WATER 50 ML DISP.SYRIN IVP ONE (06:00)
[2019-03-22] MEDS ORDERED: ALBUTEROL FS 2.5 MG/0.5 ML VIAL.NEB NEB ONE (06:00)
--- NOTE | 2019-03-22 06:11 | NUR ---
REPORT GIVEN TO HORACIO CANCINO FOR ERIC
[2019-03-22 06:30] VITALS: BP 138/76
[2019-03-22] MEDS ORDERED: HYDROCODONE/APAP 10/325MG 1 EA TABLET PO PRN (07:30)
--- NOTE | 2019-03-22 07:30 | NUR ---
RADHA RN AM NOTES RECEIVED PT IN BED, AO X4, ON RA, NOT IN ANY DISTRESS, DENIES PAIN, SINUS RHYTHM HR 91 ON TELE MONITOR. RAC G 20 FLUSHES WELL, SITE CLEAR, LEFT ARM AV SHUNT, THRILL PRESENT. RENAL DIET. AMBULATORY. SEE NURSING FLOWSHEET FOR SKIN ISSUES. FOR HD TODAY. CONSENT SIGNED. PLAN OF CARE DISCUSSED WITH PATIENT, VERBALIZED UNDERSTANDING. SAFETY MEASURES IN PLACE. WILL MONITOR.
--- NOTE | 2019-03-22 07:36 | NUR ---
rn notes received patient from er via stretcher, awake, alert, oriented, verbal, able to communicate needs. vital signs wnl. in no apparent distress, breathing even and unlabored. room air tolerating well. no complaint of pain or discomfort. skin intact. kept clean and dry. endorsed to next shift for continuity of care.
[2019-03-22 08:00] VITALS: BP_SYST 124; BP_DIAS 59; BP_DIAS 60
[2019-03-22 08:20] LABS: POTASSIUM 4.6 mmol/L (3.5-5.1)
[2019-03-22 08:23] LABS: CREATININE 13.6 mg/dL (0.6-1.3)
[2019-03-22] MEDS: SEVELAMER CARBONATE 800 MG TABLET PO SCH ×3 (08:45→17:18)
[2019-03-22] MEDS: CALCIUM ACETATE 667 MG TABLET PO SCH ×3 (08:45→17:19)
[2019-03-22] MEDS: CARVEDILOL 12.5 MG TABLET PO SCH ×3 (08:46→21:26)
--- NOTE | 2019-03-22 09:30 | NUR ---
RADHA RN NOTES DUE MEDS GIVEN EXCEPT BP MEDS. ONGOING HD
[2019-03-22 12:00] VITALS: BP 114/53
--- NOTE | 2019-03-22 12:40 | NUR ---
RADHA RN NOTES HD COMPLETED 2 LITERS OUT. BP 122/62 HR 96. NOT IN ANY DISTRESS
--- NOTE | 2019-03-22 12:48 | NUR ---
INSTITUTIONAL RESEARCH COORDINATOR NOTES HD COMPLETED. 3000 ML OUT. 1 UNIT PRBC GIVEN WITH HD VANCOMYCIN IV GIVEN POST HD Addendum: 03/22/19 at 1604 by ORIN LANDIS RN CORRECTION: PLEASE DISCARD THIS DOCUMENTATION INTENDED FOR ANOTHER PATIENT.
[2019-03-22 16:00] VITALS: BP 100/53
--- NOTE | 2019-03-22 18:21 | NUR ---
RADHA RN CLOSING NOTES PT IN BED, RESTING COMFORTABLY, AO X4, ON RA, NOT IN ANY DISTRESS, DENIES PAIN, FAMILY AT BEDSIDE. SINUS RHYTHM HR 9Os ON TELE MONITOR. RAC G 20 FLUSHES WELL, SITE CLEAR, LEFT ARM AV SHUNT, THRILL PRESENT. RENAL DIET. AMBULATORY. SAFETY MEASURES IN PLACE. ALL NEEDS MET. CALL LIGHT WITHIN REACH. WILL ENDORSE TO NEXT SHIFT FOR ERIC.
[2019-03-22 20:00] VITALS: BP 104/55
--- NOTE | 2019-03-22 20:06 | NUR ---
RADHA RN OPENING NOTES RECEIVED REPORT FROM ORIN LEONARD. PATIENT A/A/O X3, ABLE TO VERBALIZE NEEDS. BREATHING EVEN & UNLABORED, TOLERATING ROOM AIR. DENIES ANY SOB OR DIFFICULTY BREATHING. ON TELE W/ SINUS RHYTHM & ELEVATED T WAVE HR 80S. RIGHT AC IV #20 INTACT & PATENT W/ DRESSING CDI, SALINE LOCKED. LEFT ARM FISTULA NOTED W/ NO S/S OF COMPLICATIONS. DENIES ANY PAIN OR DISCOMFORT @ THIS TIME. SAFETY MEASURES IN PLACE W/ SIDE RAILS UP & CALL LIGHT PLACED WITHIN REACH. ABLE TO AMBULATE INDEPENDENTLY BUT STILL INSTRUCTED TO CALL FOR ANY OTHER ASSISTANCE. WILL CONTINUE TO MONITOR.
[2019-03-23] VITALS: BP 110/58
[2019-03-23 04:00] VITALS: BP 95/55
--- NOTE | 2019-03-23 07:30 | NUR ---
RADHA RN AM NOTES RECEIVED PT IN BED, AO X4, ON RA, NOT IN ANY DISTRESS, DENIES PAIN, SINUS RHYTHM HR 75 ON TELE MONITOR. RAC G 20 FLUSHES WELL, SITE CLEAR, LEFT ARM AV SHUNT, THRILL PRESENT. RENAL DIET. AMBULATORY. SEE NURSING FLOWSHEET FOR SKIN ISSUES. FOR HD TODAY. PLAN OF CARE DISCUSSED WITH PATIENT, VERBALIZED UNDERSTANDING. SAFETY MEASURES IN PLACE. WILL MONITOR.
[2019-03-23 08:00] VITALS: BP 107/57
[2019-03-23] MEDS: CALCIUM ACETATE 667 MG TABLET PO SCH ×3 (08:37→17:38)
[2019-03-23] MEDS: CARVEDILOL 12.5 MG TABLET PO SCH (08:38)
[2019-03-23] MEDS: SEVELAMER CARBONATE 800 MG TABLET PO SCH ×3 (08:38→17:38)
--- NOTE | 2019-03-23 09:30 | NUR ---
RADHA RN NOTES DUE MEDS GIVEN EXCEPT BP MEDS. FOR HD
--- NOTE | 2019-03-23 11:01 | NUR ---
MS RN NOTES DC TELEMETRY PER DR. LEVINE
[2019-03-23 16:00] VITALS: BP 98/50
--- NOTE | 2019-03-23 18:05 | NUR ---
MS RN NOTES PATIENT DISCHARGED TO HOME TODAY PER MD IN STABLE CONDITION. PROVIDED DC INSTRUCTIONS, MED RECON LIST AND HEALTH TEACHINGS. PATIENT TO FOLLOW UP WITH PCP ON FRIDAY SCHEDULED. RT AC IV ACCESS, PRESSURE APPLIED, NO BLEEDING. DRESSING IN PLACE. ALL BELONGINGS CHECKED AND RETURNED. ALL PAPERWORKS SIGNED. ACCOMPANIED BY MOTHER AND THIS NURSE TO LOBBY AND WILL GO HOME VIA PRIVATE CAR BY BROTHER.
== END 2019-03-23 18:10 | disposition home or self-care (01) | DRG 640 ==
LOC: ER 04:04 → TELE-TD 06:03 → MEDSG1 03-23 11:00
PROVIDERS: ADMIT Internal Medicine Nephrology; ATTEND Internal Medicine Nephrology
PROC: 5A1D70Z Performance of Urinary Filtration, Intermittent, Less than 6 Hours Per Day (ICD-10-PCS; principal; 2019-03-22)
PROC: 5A1D70Z Performance of Urinary Filtration, Intermittent, Less than 6 Hours Per Day (ICD-10-PCS; 2019-03-23)
DX: E87.5 Hyperkalemia (principal); N18.6 End stage renal disease; I12.0 Hypertensive chronic kidney disease with stage 5 chronic kidney disease or end stage renal disease; Z99.2 Dependence on renal dialysis; D64.9 Anemia, unspecified; Z85.51 Personal history of malignant neoplasm of bladder; E83.9 Disorder of mineral metabolism, unspecified
CPT/HCPCS: 36415; 80048-TC; 85025-TC; 87081-TC; 87340; 90935-TC; G0378; J1815

== ENCOUNTER 2019-05-06 14:10 | Emergency (ER) | payer MEDICARE, MEDICAID ==
[~2019-05-06] VITALS: Ht 165.1 cm; Wt 76.7 kg
[2019-05-06 14:17] VITALS: BP 101/52
--- NOTE | 2019-05-06 14:43 | NUR ---
DR BONILLA AT BEDSIDE FOR EVAL.
[2019-05-06 15:06] LABS: BASOPHILS % (AUTO) 0.6 % (0.0-2.0); EOSINOPHILS % (AUTO) 2.3 % (0.0-6.0); HEMATOCRIT 40 % (39-51); HEMOGLOBIN 13.6 g/dL (13.5-17.5); LYMPHOCYTES # (AUTO) 0.8 /CMM (0.8-4.8); LYMPHOCYTES % (AUTO) 20.9 % (20.0-44.0); MEAN CORPUSCULAR HGB CONC 34 g/dl (31.0-36.0); MEAN CORPUSCULAR VOLUME 95 fL (80-96); MONOCYTES # (AUTO) 0.5 /CMM (0.1-1.30); MONOCYTES % (AUTO) 11.6 % (2.0-12.0); NEUTROPHILS # (AUTO) 2.6 /CMM (1.8-8.9); NEUTROPHILS % (AUTO) 64.6 % (43.0-81.0); PLATELET COUNT (AUTO) 187 /CMM (150-450); RED BLOOD CELL COUNT(AUTO) 4.22 MIL/uL (4.5-6.0); WHITE BLOOD COUNT (AUTO) 3.9 K/uL (4.3-11.0)
[2019-05-06 15:11] LABS: CALCIUM, SERUM 8.5 mg/dL (8.5-10.1); POTASSIUM 4.4 mmol/L (3.5-5.1)
[2019-05-06 15:12] LABS: CALCIUM, SERUM 8.4 mg/dL (8.5-10.1); MAGNESIUM 2.5 mg/dL (1.8-2.4)
[2019-05-06 15:14] LABS: CREATININE 8.9 mg/dL (0.6-1.3)
== END 2019-05-06 15:26 | disposition home or self-care (01) ==
LOC: ER 14:11
DX: I12.0 Hypertensive chronic kidney disease with stage 5 chronic kidney disease or end stage renal disease (principal); N18.6 End stage renal disease; R20.2 Paresthesia of skin; K56.609 Unspecified intestinal obstruction, unspecified as to partial versus complete obstruction; Z99.2 Dependence on renal dialysis; Z90.89 Acquired absence of other organs; Z98.890 Other specified postprocedural states
CPT/HCPCS: 36415; 80048-TC; 82310-TC; 83735-TC; 85025-TC

== ENCOUNTER 2019-12-25 07:27 | Emergency (ER) | payer MEDICARE, OTHER ==
[~2019-12-25] VITALS: Ht 167.6 cm; Wt 74.8 kg
--- NOTE | 2019-12-25 07:47 | NUR ---
patient came in to the er c/o chest pain burning like pain, while on HD Tx but able to finished 2/10 pain scale. Connected to the monitor and pulse ox. kept comfortable, will continue to monitor accordingly.
[2019-12-25 07:58] LABS: BASOPHILS % (AUTO) 0.5 % (0.0-2.0); EOSINOPHILS % (AUTO) 2.4 % (0.0-6.0); HEMATOCRIT 33 % (39-51); HEMOGLOBIN 11.2 g/dL (13.5-17.5); LYMPHOCYTES # (AUTO) 1.4 /CMM (0.8-4.8); LYMPHOCYTES % (AUTO) 22.8 % (20.0-44.0); MEAN CORPUSCULAR HGB CONC 34 g/dl (31.0-36.0); MEAN CORPUSCULAR VOLUME 95 fL (80-96); MONOCYTES # (AUTO) 0.7 /CMM (0.1-1.30); MONOCYTES % (AUTO) 11.3 % (2.0-12.0); NEUTROPHILS # (AUTO) 3.8 /CMM (1.8-8.9); PLATELET COUNT (AUTO) 194 /CMM (150-450); RED BLOOD CELL COUNT(AUTO) 3.43 MIL/uL (4.5-6.0)
[2019-12-25 08:07] LABS: CALCIUM, SERUM 9.3 mg/dL (8.5-10.1); CARBON DIOXIDE 27 mmol/L (21-32); CHLORIDE 99 mmol/L (98-107); CREATININE 6.8 mg/dL (0.6-1.3); GLUCOSE 96 mg/dL (74-106); POTASSIUM 3.6 mmol/L (3.5-5.1); SODIUM SERUM 135 mmol/L (136-145); UREA NITROGEN, BLOOD 30 mg/dL (7-18)
--- NOTE | 2019-12-25 09:10 | NUR ---
COVID19 SWAB DONE, SENT TO LAB
[2019-12-25 09:14] VITALS: BP 112/67
--- NOTE | 2019-12-25 09:15 | NUR ---
Patient discharged to home in stable condition. Written and verbal after care instructions given. Patient verbalizes understanding of instruction.
== END 2019-12-25 09:14 | disposition home or self-care (01) ==
LOC: ER 07:28
DX: J18.9 Pneumonia, unspecified organism (principal); I12.0 Hypertensive chronic kidney disease with stage 5 chronic kidney disease or end stage renal disease; N18.6 End stage renal disease; Z99.2 Dependence on renal dialysis; Z90.5 Acquired absence of kidney; Z20.828 Contact with and (suspected) exposure to other viral communicable diseases; R94.31 Abnormal electrocardiogram [ECG] [EKG]
CPT/HCPCS: 36415; 71045-TC; 80048-TC; 84484-TC; 85025-TC; U0003

== ENCOUNTER 2020-01-28 02:03 | Emergency (ER) | payer MEDICARE, OTHER ==
[~2020-01-28] VITALS: Ht 167.6 cm; Wt 72.6 kg
--- NOTE | 2020-01-28 02:17 | NUR ---
PATIENT CAME TO ER BED 9 C/O MID EPIGASTRIC PAIN SINCE YESTERDAY OF 1500. PATIENT IS CURRENTLY HAVING NAUSEA. PATIENT STATES THAT HE GOES ON DIALYSIS EVERY Friday AND FRIDAY. AAOX4. NO SOB. BREATHING EVENLY AND UNLABORED ON ROOM AIR. CONNECTED TO MONITOR.
[2020-01-28] MEDS ORDERED: ONDANSETRON HCL/PF 4 MG/2 ML VIAL ONE (02:29)
--- NOTE | 2020-01-28 02:29 | NUR ---
BLOOD COLLECTED AND SENT TO LAB.
[2020-01-28] MEDS ORDERED: MORPHINE SULFATE INJ 4 MG/ML DISP.SYRIN ONE (02:30)
[2020-01-28] MEDS ORDERED: MORPHINE SULFATE INJ 2 MG/ML DISP.SYRIN IV ONE (02:30)
[2020-01-28] MEDS ORDERED: IV NS 0.9% 500 ML BAG IV ONE (02:30)
[2020-01-28] MEDS ORDERED: ONDANSETRON HCL/PF 4 MG/2 ML VIAL IVP ONE (02:30)
[2020-01-28 02:41] LABS: CALCIUM, SERUM 10.8 mg/dL (8.5-10.1); CARBON DIOXIDE 24 mmol/L (21-32); CHLORIDE 97 mmol/L (98-107); GLUCOSE 134 mg/dL (74-106); POTASSIUM 5.6 mmol/L (3.5-5.1); SODIUM SERUM 135 mmol/L (136-145); UREA NITROGEN, BLOOD 50 mg/dL (7-18)
[2020-01-28 02:47] LABS: ALANINE AMINOTRANSFERASE 14 U/L (12-78); ALBUMIN 4.6 g/dL (3.4-5.0); ALKALINE PHOSPHATASE 60 U/L (46-116); ASPARTATE AMINOTRANSFERASE 16 U/L (15-37); BASOPHILS # (AUTO) 0.2 /CMM (0.0-0.2); BILIRUBIN,DIRECT 0.1 mg/dL (0.0-0.2); BILIRUBIN,TOTAL 0.6 mg/dL (0.2-1.0); EOSINOPHILS % (AUTO) 0.6 % (0.0-6.0); HEMATOCRIT 42 % (39-51); HEMOGLOBIN 13.9 g/dL (13.5-17.5); LIPASE 207 U/L (73-393); LYMPHOCYTES # (AUTO) 0.5 /CMM (0.8-4.8); LYMPHOCYTES % (AUTO) 5.9 % (20.0-44.0); MEAN CORPUSCULAR HGB CONC 33 g/dl (31.0-36.0); MEAN CORPUSCULAR VOLUME 96 fL (80-96); MONOCYTES # (AUTO) 0.3 /CMM (0.1-1.30); MONOCYTES % (AUTO) 3.9 % (2.0-12.0); NEUTROPHILS # (AUTO) 7.6 /CMM (1.8-8.9); NEUTROPHILS % (AUTO) 87.6 % (43.0-81.0); PLATELET COUNT (AUTO) 204 /CMM (150-450); TOTAL PROTEIN, SERUM 8.2 g/dL (6.4-8.2); WHITE BLOOD COUNT (AUTO) 8.6 K/uL (4.3-11.0)
[2020-01-28 02:49] LABS: CREATININE 10.7 mg/dL (0.6-1.3)
[2020-01-28] MEDS ORDERED: FUROSEMIDE 40 MG/4 ML VIAL IV ONE (03:30)
[2020-01-28] MEDS ORDERED: FUROSEMIDE 40 MG/4 ML VIAL ONE (03:33)
--- NOTE | 2020-01-28 04:04 | NUR ---
Patient discharged to home in stable condition. Written and verbal after care instructions given. Patient verbalizes understanding of instruction.
--- NOTE | 2020-01-28 04:04 | NUR ---
IV removed. Catheter intact and site benign. Pressure and 4x4 applied to site. No bleeding noted.
[2020-01-28 04:05] VITALS: BP 115/65
== END 2020-01-28 04:05 | disposition home or self-care (01) ==
LOC: ER 02:03
DX: I12.0 Hypertensive chronic kidney disease with stage 5 chronic kidney disease or end stage renal disease (principal); N18.6 End stage renal disease; R11.2 Nausea with vomiting, unspecified; R10.9 Unspecified abdominal pain; G89.29 Other chronic pain; E87.5 Hyperkalemia; Z99.2 Dependence on renal dialysis; Z91.15 Patient's noncompliance with renal dialysis; Z90.89 Acquired absence of other organs; Z98.890 Other specified postprocedural states; Z90.5 Acquired absence of kidney; Z79.899 Other long term (current) drug therapy
CPT/HCPCS: 36415; 71045; 74176; 80048; 80076; 82962; 83690; 84484; 85025; 85730; 93005; 96374; 96375; 99285; J1940; J2270; J2405; J7040

== ENCOUNTER 2020-02-12 07:29 | Emergency (ER) | payer MEDICARE, OTHER ==
[~2020-02-12] VITALS: Ht 167.6 cm; Wt 77.1 kg
[2020-02-12 07:37] VITALS: BP 128/79
== END 2020-02-12 08:14 | disposition home or self-care (01) ==
LOC: ER 07:34
DX: U07.1 COVID-19 (principal); I12.0 Hypertensive chronic kidney disease with stage 5 chronic kidney disease or end stage renal disease; N18.6 End stage renal disease; Z99.2 Dependence on renal dialysis; Z90.5 Acquired absence of kidney
CPT/HCPCS: C9803-CS; U0003-CS

== ENCOUNTER 2020-02-29 12:01 | Emergency (ER) | payer MEDICARE, OTHER ==
[~2020-02-29] VITALS: Ht 154.9 cm; Wt 63.5 kg
[2020-02-29 12:07] VITALS: BP 146/94
--- NOTE | 2020-02-29 12:36 | NUR ---
COVID SWAB DONE AND SENT TO LAB
--- NOTE | 2020-02-29 12:37 | NUR ---
Patient discharged to home in stable condition. Written and verbal after care instructions given. Patient verbalizes understanding of instruction. Pt ambulatory with a steady gait
== END 2020-02-29 12:46 | disposition home or self-care (01) ==
LOC: ER 12:05
DX: U07.1 COVID-19 (principal); I12.0 Hypertensive chronic kidney disease with stage 5 chronic kidney disease or end stage renal disease; N18.6 End stage renal disease; Z99.2 Dependence on renal dialysis; Z90.5 Acquired absence of kidney
CPT/HCPCS: C9803-CS; U0003-CS

== ENCOUNTER 2020-03-07 03:29 | Emergency (ER) | payer MEDICARE, OTHER ==
[~2020-03-07] VITALS: Ht 167.6 cm; Wt 74.8 kg
--- NOTE | 2020-03-07 03:43 | NUR ---
C/O HEADACHE, DIZZINESS SINCE YESTERDAY. LAST COVID TEST POSITIVE 02/29/20, NO FACIAL DROOP OR SLURRED SPEECH NOTED. AMBULATORY TO BED 5. PT WAS PLACED ON A MONITOR, AWAITING FOR MD BERMUDEZ.
[2020-03-07] MEDS ORDERED: LORAZEPAM 0.5 MG TABLET ONE (03:51)
[2020-03-07] MEDS ORDERED: MECLIZINE HCL 25 MG TABLET ONE (03:52)
[2020-03-07] MEDS ORDERED: ONDANSETRON 4 MG TAB.RAPDIS ONE (03:52)
[2020-03-07] MEDS ORDERED: MECLIZINE HCL 12.5 MG TABLET PO ONE (04:00)
[2020-03-07] MEDS ORDERED: ONDANSETRON 4 MG TAB.RAPDIS SL ONE (04:00)
[2020-03-07] MEDS ORDERED: LORAZEPAM 0.5 MG TABLET PO ONE (04:00)
[2020-03-07] MEDS ORDERED: ACETAMINOPHEN ES 500 MG TABLET ONE (04:45)
--- NOTE | 2020-03-07 04:57 | NUR ---
Patient discharged to home in stable condition. Written and verbal after care instructions given. Patient verbalizes understanding of instruction.
[2020-03-07 05:00] VITALS: BP 139/88
[2020-03-07] MEDS ORDERED: ACETAMINOPHEN ES 500 MG TABLET PO ONE (05:00)
== END 2020-03-07 05:00 | disposition home or self-care (01) ==
LOC: ER 03:31
DX: R42 Dizziness and giddiness (principal); F41.9 Anxiety disorder, unspecified; I12.0 Hypertensive chronic kidney disease with stage 5 chronic kidney disease or end stage renal disease; N18.6 End stage renal disease; Z99.2 Dependence on renal dialysis; Z90.89 Acquired absence of other organs; Z98.890 Other specified postprocedural states; Z90.5 Acquired absence of kidney; Z85.028 Personal history of other malignant neoplasm of stomach; Z79.899 Other long term (current) drug therapy
CPT/HCPCS: 99284; J8597; Q0162

== ENCOUNTER 2020-03-25 07:14 | Emergency (ER) | payer MEDICARE, OTHER ==
[~2020-03-25] VITALS: Ht 167.6 cm; Wt 77.1 kg
--- NOTE | 2020-03-25 07:30 | NUR ---
DIZZY S/P DIALYSIS TODAY. HEADACHE X 2 WEEKS. PATIENT A/OX4, BREATHING EVEN AND UNLABORED, NO SOB NOTED, NEEDS ATTENDED. AMBULATORY WITH STEADY GAIT. WILL MONITOR.
--- NOTE | 2020-03-25 07:40 | NUR ---
SEEN AND EVALUATED BY DR. ANDUJAR.
[2020-03-25] MEDS ORDERED: oxyCODONE/APAP (5/325 MG) 1 UDTAB TABLET ONE (07:50)
[2020-03-25] MEDS ORDERED: ONDANSETRON 4 MG TAB.RAPDIS ONE (07:50)
--- NOTE | 2020-03-25 07:57 | NUR ---
Patient discharged to home in stable condition. Written and verbal after care instructions given. Patient verbalizes understanding of instruction. Ambulatory with steady gait. Instructed not to drive.
[2020-03-25 08:00] VITALS: BP 142/85
[2020-03-25] MEDS ORDERED: ONDANSETRON 4 MG TAB.RAPDIS SL ONE (08:00)
[2020-03-25] MEDS ORDERED: oxyCODONE/APAP (5/325 MG) 1 UDTAB TABLET PO ONE (08:00)
== END 2020-03-25 08:00 | disposition home or self-care (01) ==
LOC: ER 07:14
DX: G44.209 Tension-type headache, unspecified, not intractable (principal); I12.0 Hypertensive chronic kidney disease with stage 5 chronic kidney disease or end stage renal disease; N18.6 End stage renal disease; F41.9 Anxiety disorder, unspecified; Z99.2 Dependence on renal dialysis; Z90.89 Acquired absence of other organs; Z98.890 Other specified postprocedural states; Z79.899 Other long term (current) drug therapy
CPT/HCPCS: 99283; Q0162

== ENCOUNTER 2020-08-24 07:27 | Emergency (ER) | payer MEDICARE, OTHER ==
[~2020-08-24] VITALS: Ht 167.6 cm; Wt 78.0 kg
[2020-08-24 07:39] VITALS: BP 135/80
[2020-08-24 08:39] LABS: BASOPHILS % (AUTO) 0.4 % (0.0-2.0); EOSINOPHILS % (AUTO) 1.8 % (0.0-6.0); HEMATOCRIT 36 % (39-51); LYMPHOCYTES # (AUTO) 0.7 /CMM (0.8-4.8); MEAN CORPUSCULAR HGB CONC 34 g/dl (31.0-36.0); MEAN CORPUSCULAR VOLUME 95 fL (80-96); MONOCYTES # (AUTO) 0.3 /CMM (0.1-1.30); MONOCYTES % (AUTO) 6.9 % (2.0-12.0); NEUTROPHILS # (AUTO) 3.3 /CMM (1.8-8.9); NEUTROPHILS % (AUTO) 75.9 % (43.0-81.0); PLATELET COUNT (AUTO) 175 /CMM (150-450); RED BLOOD CELL COUNT(AUTO) 3.78 MIL/uL (4.5-6.0); WHITE BLOOD COUNT (AUTO) 4.4 K/uL (4.3-11.0)
[2020-08-24 08:40] LABS: CALCIUM, SERUM 10.2 mg/dL (8.5-10.1); CREATININE 6.4 mg/dL (0.6-1.3); POTASSIUM 4.3 mmol/L (3.5-5.1)
== END 2020-08-24 09:35 | disposition home or self-care (01) ==
LOC: ER 07:34
DX: E87.8 Other disorders of electrolyte and fluid balance, not elsewhere classified (principal); I12.0 Hypertensive chronic kidney disease with stage 5 chronic kidney disease or end stage renal disease; N18.6 End stage renal disease; F41.9 Anxiety disorder, unspecified; Z99.2 Dependence on renal dialysis; Z90.89 Acquired absence of other organs; Z98.890 Other specified postprocedural states; Z79.899 Other long term (current) drug therapy
CPT/HCPCS: 36415; 80048-TC; 85025-TC

== ENCOUNTER 2020-10-22 05:46 | Emergency (ER) | payer MEDICARE, OTHER ==
[~2020-10-22] VITALS: Ht 167.6 cm; Wt 74.8 kg
--- NOTE | 2020-10-22 06:05 | NUR ---
PT BIBSELF C/O RECTAL PAIN. PT AAOX4 BREATHING EVENLY AND UNLABORED. PT STATES HE HAS PAIN "FROM PUSHING TOO HARD". PT SKIN INTACT. MD AT BEDSIDE FOR EVALUATION. PT ATTACHED TO MONITOR AND POX. CALL LIGHT WITHIN REACH.
[2020-10-22] MEDS ORDERED: HC A10FO RC (06:26)
--- NOTE | 2020-10-22 06:38 | NUR ---
Patient discharged to home in stable condition. Written and verbal after care instructions given. Patient verbalizes understanding of instruction. PT ambulatory with a steady gait
[2020-10-22 06:39] VITALS: BP 160/89
[2020-10-23] MEDS ORDERED: HYDR30CR79 TP (12:48)
== END 2020-10-22 06:30 | disposition home or self-care (01) ==
LOC: ER 05:51
DX: K64.8 Other hemorrhoids (principal); I12.9 Hypertensive chronic kidney disease with stage 1 through stage 4 chronic kidney disease, or unspecified chronic kidney disease; E11.22 Type 2 diabetes mellitus with diabetic chronic kidney disease; N18.9 Chronic kidney disease, unspecified; F41.9 Anxiety disorder, unspecified; Z99.2 Dependence on renal dialysis; Z90.89 Acquired absence of other organs; Z98.890 Other specified postprocedural states; Z79.899 Other long term (current) drug therapy

== ENCOUNTER 2020-10-23 12:25 | Emergency (ER) | payer MEDICARE, OTHER ==
[~2020-10-23] VITALS: Ht 167.6 cm; Wt 74.8 kg
[~2020-10-23 12:25] MED LIST changes: +HC A10FO RC
[2020-10-23 12:31] VITALS: BP 170/85
[2020-10-23] MEDS ORDERED: HYDR30CR79 TP (12:48)
--- NOTE | 2020-10-23 12:59 | NUR ---
Patient discharged to home in stable condition. Written and verbal after care instructions given. Patient verbalizes understanding of instruction.
== END 2020-10-23 12:59 | disposition home or self-care (01) ==
LOC: ER 12:27
DX: K64.9 Unspecified hemorrhoids (principal); I12.0 Hypertensive chronic kidney disease with stage 5 chronic kidney disease or end stage renal disease; N18.6 End stage renal disease; F41.9 Anxiety disorder, unspecified; Z99.2 Dependence on renal dialysis; Z90.89 Acquired absence of other organs; Z98.890 Other specified postprocedural states; Z79.899 Other long term (current) drug therapy

== ENCOUNTER 2020-10-30 13:30 | Emergency (ER) | payer MEDICARE, OTHER ==
[~2020-10-30] VITALS: Ht 167.6 cm; Wt 74.8 kg
[~2020-10-30 13:30] MED LIST changes: +HYDR30CR79 TP
[2020-10-30 13:42] VITALS: BP 159/91
[2020-10-30] MEDS ORDERED: ACET-868 PO ×2 (14:23→14:24)
[2020-10-30] MEDS ORDERED: ACETAMINOPHEN 325 MG TABLET ONE (14:29)
[2020-10-30] MEDS ORDERED: ACETAMINOPHEN 325 MG TABLET PO ONE (14:30)
--- NOTE | 2020-10-30 14:45 | NUR ---
Patient discharged to home in stable condition. Written and verbal after care instructions given. Patient verbalizes understanding of instruction.
== END 2020-10-30 14:46 | disposition home or self-care (01) ==
LOC: ER 13:45
DX: K64.4 Residual hemorrhoidal skin tags (principal); I12.9 Hypertensive chronic kidney disease with stage 1 through stage 4 chronic kidney disease, or unspecified chronic kidney disease; E11.22 Type 2 diabetes mellitus with diabetic chronic kidney disease; N18.9 Chronic kidney disease, unspecified; F41.9 Anxiety disorder, unspecified; Z90.89 Acquired absence of other organs; Z90.5 Acquired absence of kidney; Z99.2 Dependence on renal dialysis; Z98.890 Other specified postprocedural states; Z79.899 Other long term (current) drug therapy

== ENCOUNTER 2020-11-13 10:52 | Emergency (ER) | payer MEDICARE, OTHER ==
[~2020-11-13] VITALS: Ht 167.6 cm; Wt 74.8 kg
[~2020-11-13 10:52] MED LIST changes: +ACET-868 PO
--- NOTE | 2020-11-13 11:18 | NUR ---
BIBS FROM HOME TO ER BED 8. AAOX4. IN MILD RESP DISTRESS, SOB. AMBULATORY. CAME IN FOR SOB SATRTED THIS MORNING. PT IS INDED NOTED DYSNEIC BUT SATTING AT 97% ON RA. PT IS A DIALYSIS PT, LAST HD WAS DONE ON SAT. HD IS QT,TH,S. HD SITE ON MANINDER. MD WAS AT THE BEDSIDE [facility]. ORDERS RECEIVED, NOTED AND CARRIED OU. IV LINE ESTABLISHED ON RAC 20G, BLOOD DRAWN AND GIVEN TO PHLEB. EKG DONE AT BEDSIDE. PT ON MONITOR
[2020-11-13 11:20] LABS: HEMOGLOBIN 10.8 g/dL (13.5-17.5)
[2020-11-13 11:37] LABS: CALCIUM, SERUM 9.8 mg/dL (8.5-10.1); POTASSIUM 5.3 mmol/L (3.5-5.1)
[2020-11-13 11:44] LABS: BASOPHILS % (AUTO) 0.7 % (0.0-2.0); EOSINOPHILS % (AUTO) 3.4 % (0.0-6.0); HEMATOCRIT 33 % (39-51); LYMPHOCYTES # (AUTO) 0.7 /CMM (0.8-4.8); MEAN CORPUSCULAR HGB CONC 33 g/dl (31.0-36.0); MEAN CORPUSCULAR VOLUME 95 fL (80-96); MONOCYTES # (AUTO) 0.5 /CMM (0.1-1.30); MONOCYTES % (AUTO) 8.8 % (2.0-12.0); NEUTROPHILS # (AUTO) 4.6 /CMM (1.8-8.9); NEUTROPHILS % (AUTO) 75.1 % (43.0-81.0); PLATELET COUNT (AUTO) 205 /CMM (150-450); RED BLOOD CELL COUNT(AUTO) 3.48 MIL/uL (4.5-6.0); WHITE BLOOD COUNT (AUTO) 6.1 K/uL (4.3-11.0)
[2020-11-13 11:51] LABS: ALBUMIN 3.4 g/dL (3.4-5.0); BILIRUBIN,DIRECT 0.2 mg/dL (0.0-0.2); BILIRUBIN,TOTAL 0.6 mg/dL (0.2-1.0); TOTAL PROTEIN, SERUM 6.9 g/dL (6.4-8.2)
--- NOTE | 2020-11-13 12:35 | NUR ---
PT REPROTS THAT HE IS ABLE TO GET DIALYSIS SCHEDULE TODAY IN THE NEXT 15MIN.
--- NOTE | 2020-11-13 12:35 | NUR ---
Patient discharged to home in stable condition. Written and verbal after care instructions given. Patient verbalizes understanding of instruction.IV removed. Catheter intact and site benign. Pressure and 4x4 applied to site. No bleeding noted. Pt ambulatory with a steady gait
[2020-11-13 12:36] VITALS: BP 187/114
== END 2020-11-13 12:36 | disposition home or self-care (01) ==
LOC: ER 10:54
DX: R06.02 Shortness of breath (principal); E11.22 Type 2 diabetes mellitus with diabetic chronic kidney disease; I12.0 Hypertensive chronic kidney disease with stage 5 chronic kidney disease or end stage renal disease; N18.6 End stage renal disease; F41.9 Anxiety disorder, unspecified; Z99.2 Dependence on renal dialysis; Z90.5 Acquired absence of kidney; Z90.89 Acquired absence of other organs; Z98.890 Other specified postprocedural states; Z79.899 Other long term (current) drug therapy
CPT/HCPCS: 36415; 71045-TC; 80048-TC; 80076-TC; 83880; 84484-TC; 85025-TC

== ENCOUNTER 2020-11-16 07:36 | Inpatient (IN) | payer MEDICARE, OTHER ==
[~2020-11-16] VITALS: Ht 165.1 cm; Wt 78.0 kg
--- NOTE | 2020-11-16 07:42 | NUR ---
PT AMBULATORY TO ER BED 03 C/O HIGH BP AND WAS HAVING MIDSTERNAL CHEST PAIN JUST BEFORE HE FINISH HIS DIALYSIS. SYSTOLIC BP IN THE 170'S CASH REGISTER BALANCER. DENIES SOB OR ANY OTHER COMPLAIN. AWAITING MD BERMUDEZ.
--- NOTE | 2020-11-16 07:44 | NUR ---
DR GOLDEN AT BEDSIDE FOR EVAL.
--- NOTE | 2020-11-16 08:00 | NUR ---
IV LINE STARTED, BLOOD COLLECTED LAB CALLED FOR SAND MIXER MACHINE.
[2020-11-16 08:16] LABS: BASOPHILS % (AUTO) 0.8 % (0.0-2.0); EOSINOPHILS % (AUTO) 4.6 % (0.0-6.0); HEMATOCRIT 36 % (39-51); LYMPHOCYTES # (AUTO) 1.2 /CMM (0.8-4.8); LYMPHOCYTES % (AUTO) 22.4 % (20.0-44.0); MEAN CORPUSCULAR HGB CONC 34 g/dl (31.0-36.0); MEAN CORPUSCULAR VOLUME 93 fL (80-96); MONOCYTES # (AUTO) 0.6 /CMM (0.1-1.30); MONOCYTES % (AUTO) 11.8 % (2.0-12.0); NEUTROPHILS # (AUTO) 3.1 /CMM (1.8-8.9); NEUTROPHILS % (AUTO) 60.4 % (43.0-81.0); PLATELET COUNT (AUTO) 233 /CMM (150-450); RED BLOOD CELL COUNT(AUTO) 3.85 MIL/uL (4.5-6.0); WHITE BLOOD COUNT (AUTO) 5.2 K/uL (4.3-11.0)
--- NOTE | 2020-11-16 08:18 | NUR ---
RADIOLOGY AT BEDSIDE FOR CHEST XRAY
[2020-11-16 08:47] LABS: ALBUMIN 3.6 g/dL (3.4-5.0); BILIRUBIN,DIRECT 0.1 mg/dL (0.0-0.2); BILIRUBIN,TOTAL 0.6 mg/dL (0.2-1.0); CALCIUM, SERUM 9.8 mg/dL (8.5-10.1); CREATININE 4.9 mg/dL (0.6-1.3); POTASSIUM 3.5 mmol/L (3.5-5.1); TOTAL PROTEIN, SERUM 7.3 g/dL (6.4-8.2)
[2020-11-16] MEDS ORDERED: ASPIRIN 81 MG TAB.CHEW ONE (09:13)
[2020-11-16] MEDS ORDERED: ASPIRIN 81 MG TAB.CHEW PO ONE (09:30)
--- NOTE | 2020-11-16 09:50 | NUR ---
PANEL PAGED. AWAITING HOSPITALIST CALL BACK.
--- NOTE | 2020-11-16 09:59 | NUR ---
DR HOLLOWAY IN TO SEE PATIENT FOR CONSULT.
--- NOTE | 2020-11-16 10:09 | NUR ---
PANEL ON-CALL PAGED
[2020-11-16] MEDS ORDERED: ENOXAPARIN SODIUM 30 MG/0.3 ML DISP.SYRIN IV ONE (10:30)
[2020-11-16] MEDS ORDERED: IV NS 0.9% 250 ML IV ONE (10:37)
[2020-11-16] MEDS ORDERED: IOHEXOL-350 100 ML VIAL IV ONE (10:37)
[2020-11-16] MEDS: METOPROLOL TARTRATE INJ 5 MG/5 ML AMPUL IVP PRN ×10 (10:40→11:25)
[2020-11-16] MEDS ORDERED: METOPROLOL TARTRATE INJ 5 MG/5 ML AMPUL ONE ×3 (10:46→11:03)
[2020-11-16] MEDS ORDERED: NITROGLYCERIN 0.4 MG/TAB BOTTLE ONE (10:46)
[2020-11-16] MEDS ORDERED: NITROGLYCERIN 0.4 MG/TAB BOTTLE SL ONE (11:00)
--- NOTE | 2020-11-16 11:01 | NUR ---
CALLED NURSING SUP FOR TELE BED.
--- NOTE | 2020-11-16 11:01 | NUR ---
RAPID COVID NEG.
--- NOTE | 2020-11-16 11:19 | NUR ---
REPORT GIVEN TO FUNMI. PT AWAITING TRANSFER TO FLOOR.
[2020-11-16] MEDS ORDERED: MAGNESIUM HYDROXIDE 30 ML UDC PO PRN (16:00)
[2020-11-16] MEDS ORDERED: ONDANSETRON HCL/PF 4 MG/2 ML VIAL IVP PRN (16:00)
[2020-11-16] MEDS ORDERED: ACETAMINOPHEN 325 MG TABLET PO PRN (16:00)
[2020-11-16] MEDS ORDERED: HYDROCODONE/APAP 5/325MG TABLET PO PRN (16:00)
[2020-11-16] MEDS ORDERED: Z GUARD REMEDY 2 OZ OINT TP PRN (16:00)
[2020-11-16] MEDS ORDERED: ZOLPIDEM TARTRATE 5 MG TABLET PO PRN (16:00)
[2020-11-16] MEDS ORDERED: MAG HYDROX/AL HYDROX/SIMETH 30 ML UDC PO PRN (16:00)
--- NOTE | 2020-11-16 16:05 | NUR ---
STRIKE ON MACHINE OPERATOR PATIENT ADMITTED FROM ER [facility]IA [facility] ACCOMPANIED BY 2 NURSES WITH ADMITTING DIAGNOSIS OF CHEST PAIN. AWAKE, ALERT, ORIENTED X4. ABLE TO MAKE NEEDS KNOWN, VERBALLY RESPONSIVE. ORIENTED TO ROOM , CALL LIGHT, AND UNIT. NO COMPLAINT OF PAIN OR DISCOMFORT AT THIS TIME. BREATHING EVEN AND NON-LABORED. RIGHT HAND AND RIGHT AC IV 18 GAUGE NOTED, INTACT, PATENT, NO S/S OF INFILTRATION. LEFT AV SHUNT NOTED WITH POSITIVE BRUIT AND THRILL, NO BLEEDING, NO S/S OF INFECTION, DIALYSIS DONE TODAY. SKIN INTACT, WARM, DRY TO TOUCH. KEPT CLEAN AND DRY. ALL NEEDS AND CARE PROVIDED PROMPTLY. CALL LIGHT WITHIN EASY REACH.
--- NOTE | 2020-11-16 17:00 | NUR ---
ms clarisse trop result -0.06, texted norm,no order at this time.
--- NOTE | 2020-11-16 18:43 | NUR ---
CANDY DEPARTMENT MANAGER CLOSING NOTES PATIENT IN BED, ASLEEP BUT EASILY AROUSABLE. NO MANIFESTATION OF PAIN OR DISCOMFORT AT THIS TIME. BREATHING EVEN AND NON-LABORED. RIGHT HAND AND RIGHT AC IV 18 GAUGE NOTED, INTACT AND PATENT. LEFT AV SHUNT NOTED, BRUIT AND THRILL PRESENT, NO BLEEDING NOTED. KEPT CLEAN AND DRY. ALL NEEDS PROVIDED PROMPTLY. CALL LIGHT WITHIN EASY REACH. WILL ENDORSE PLAN OF CARE TO INSULATOR HELPER.
--- NOTE | 2020-11-16 20:06 | NUR ---
MS/TELE/RN RECEIVED PATIEN IN BED AWAKE, ALERT, ORIENTED, COMFORTABLE, NO C/O PAIN, NO DISTRESS NOTED, CALL LIGHT IN REACH, NEEDS ATTENDED, WILL MONITOR.
[2020-11-16 20:52] VITALS: BP 140/86
--- NOTE | 2020-11-17 00:08 | NUR ---
MS/TELE/RN PATIENT IS SLEEPING AT THIS TIME, APPEAR COMFORTABLE, NO SIGNS OF DISTRESS NOTED, NPO STATUS STARTED PER CHEST PAIN POLICY PER DR. LEVINE, WILL CONTINUE TO MONITOR.
[2020-11-17 00:16] VITALS: BP 145/98
[2020-11-17 04:19] VITALS: BP 153/87
--- NOTE | 2020-11-17 05:57 | NUR ---
MS/TELE/RN PATIENT IS STILL SLEEPING AT THIS TIME, APPEAR COMFORTABLE, NO SIGNS OF DISTRESS NOTED, CALL LIGHT IN REACH, ALL NEEDS ATTENDED AT THIS TIME, WILL CONTINUE TO MONITOR.
[2020-11-17 06:44] LABS: MAGNESIUM 2.5 mg/dL (1.8-2.4); PHOSPHORUS 7.8 mg/dL (2.5-4.9); POTASSIUM 4.5 mmol/L (3.5-5.1)
[2020-11-17 06:47] LABS: BASOPHILS % (AUTO) 0.8 % (0.0-2.0); EOSINOPHILS % (AUTO) 5.8 % (0.0-6.0); HEMATOCRIT 35 % (39-51); HEMOGLOBIN 11.5 g/dL (13.5-17.5); LYMPHOCYTES % (AUTO) 20.6 % (20.0-44.0); MEAN CORPUSCULAR HGB CONC 33 g/dl (31.0-36.0); MEAN CORPUSCULAR VOLUME 93 fL (80-96); MONOCYTES # (AUTO) 0.5 /CMM (0.1-1.30); MONOCYTES % (AUTO) 9.9 % (2.0-12.0); NEUTROPHILS # (AUTO) 3.1 /CMM (1.8-8.9); NEUTROPHILS % (AUTO) 62.9 % (43.0-81.0); PLATELET COUNT (AUTO) 219 /CMM (150-450); RED BLOOD CELL COUNT(AUTO) 3.78 MIL/uL (4.5-6.0)
[2020-11-17 06:58] LABS: THYROID STIMULATING HORMONE 0.308 uIU/mL (0.358-3.74)
[2020-11-17 07:42] LABS: CREATININE 8.1 mg/dL (0.6-1.3)
--- NOTE | 2020-11-17 07:46 | NUR ---
ENVIRONMENTAL STUDIES PROGRAM DIRECTOR OPENING NOTE PT RECEIVED IN BED, ASLEEP BUT AROUSABLE AND RESPONSIVE. PT IS A/O X 4, VERBAL, PRIMARILY TAJIK SPEAKING BUT CAN UNDERSTAND BELARUSIAN, ABLE TO MAKE NEEDS KNOWN WITH NO C/O PAIN OR S/SX OF ACUTE DISTRESS AT THIS TIME. PT IS ON ROOM AIR WITH NO S/SX OF RESPIRATORY DISTRESS AT THIS TIME. PT'S TELE MONITOR SHOWS NSR AT 83 BPM, IN NO CARDIAC DISTRESS. PT HAS AN IV ACCESS ON RIGHT AC G#20 AND RIGHT HAND G#20, SALINE LOCK, PATENT, INTACT AND FLUSHING WELL WITH NO S/S OF INFECTION OR IRRITATION. PT ALSO HAS A LEFT ARM FISTULA, POSITIVE FOR BRUIT AND THRILL. SAFETY MEASURES IN PLACE: BED IN LOWEST, LOCKED POSITION WITH BOTH UPPER SIDE RAILS UP X 2. CALL LIGHT PLACED WITHIN REACH. WILL CONTINUE TO MONITOR.
[2020-11-17 08:12] VITALS: BP 156/86
[2020-11-17 08:38] VITALS: BP 136/86
[2020-11-17] MEDS: SEVELAMER CARBONATE 800 MG TABLET PO SCH ×2 (08:38→12:08)
[2020-11-17] MEDS: CALCIUM ACETATE 667 MG TABLET PO SCH ×2 (08:38→12:09)
[2020-11-17] MEDS ORDERED: CARVEDILOL 12.5 MG TABLET PO SCH (09:00)
--- NOTE | 2020-11-17 13:28 | NUR ---
MS COMMERCIAL FISHERMAN NOTE PT CLEARED FOR DISCHARGE TODAY. PT IS A/O X 4, VERBAL, LUXEMBOURGISH AND AFGHAN SPEAKING, ABLE TO MAKE NEEDS KNOWN WITH NO C/O PAIN OR S/SX OF ACUTE DISTRESS AT THIS TIME. PT IS MEDICALLY STABLE. VSS. PT IS ON ROOM AIR WITH ON S/SX OF RESPIRATORY DISTRESS NOTED. PT'S TELE MONITOR D/C, WITH NO S/SX OF CARDIAC DISTRESS AT THIS TIME. IV ACCESS REMOVED, WITH NO S/SX OF BLEEDING. ID BAND/ARM BAND REMOVED. PT'S BELONGINGS LIST AND D/C PAPERWORK SIGNED, WITNESSED, COPIED AND GIVEN TO PT/FILED IN CHART. DISCHARGE INSTRUCTIONS AND EDUCATION GIVEN TO PT WITH SUCCESSFUL RETURN DEMONSTRATION AND VERBALIZATION OF UNDERSTANDING. PT STATES HE UNDERSTANDS MEDICAL CONDITION AND ALL DISCHARGE INSTRUCTIONS. ALL CARE, NEEDS, MEDICATIONS, AND TREATMENTS GIVEN TO PT ORDERED IN A TIMELY MANNER PER FACILITY PROTOCOL. PT LEFT UNIT AT 1326, AMBULATING WITH STEADY GAIT, ACCOMPANIED BY ME TO LOBBY. PT PICKED UP BY BROTHER NNEKA AND COUSIN JAIME VIA PRIVATE VEHICLE. CHARGE NURSE AND AWARE.
== END 2020-11-17 13:30 | disposition home or self-care (01) | DRG 280 ==
LOC: ER 07:41 → TELE 11:16 → MED 11-17 08:31
PROVIDERS: ADMIT Student in an Organized Health Care Education/Training Program; ATTEND Student in an Organized Health Care Education/Training Program
PROC: 5A1D70Z Performance of Urinary Filtration, Intermittent, Less than 6 Hours Per Day (ICD-10-PCS; principal; 2020-11-16)
DX: I21.A1 Myocardial infarction type 2 (principal); N18.6 End stage renal disease; I13.2 Hypertensive heart and chronic kidney disease with heart failure and with stage 5 chronic kidney disease, or end stage renal disease; I50.9 Heart failure, unspecified; D64.9 Anemia, unspecified; F41.9 Anxiety disorder, unspecified; E83.89 Other disorders of mineral metabolism; I49.9 Cardiac arrhythmia, unspecified; M89.9 Disorder of bone, unspecified; Z90.5 Acquired absence of kidney; Z99.2 Dependence on renal dialysis
CPT/HCPCS: 36415; 71045-TC; 75574; 80048-TC; 80061-TC; 80076-TC; 83735-TC; 83880; 84100-TC; 84439-TC; 84443-TC; 84484-TC; 85025-TC; 85610-TC; 85730-TC; 87081-TC; 93307-TC; C9803; G0378; J3490; J7050; Q9967

== ENCOUNTER 2021-11-05 11:00 | Inpatient (IN) | payer MEDICARE, OTHER ==
[~2021-11-05] VITALS: Ht 165.1 cm; Wt 82.1 kg
[~2021-11-05 11:00] MED LIST changes: -ACET-868 PO; -HC A10FO RC; -HYDR-4354 PO; -HYDR30CR79 TP
--- NOTE | 2021-11-05 11:21 | NUR ---
PT CAME TO ER C/O L SIDED BURNING CHEST PAIN SINCE LAST NIGHT. NON RADIATING. DENIES SOB, DIAPHORESIS. AAOX4, BREATHING EVEN AND UNLABORED. ON MONITOR. POX 100% ON RA. WILL CONTINUE TO MONITOR.
[2021-11-05] MEDS ORDERED: ASPIRIN 325 MG TABLET PO ONE (11:30)
[2021-11-05] MEDS ORDERED: ASPIRIN 325 MG TABLET ONE (11:47)
[2021-11-05 11:56] LABS: BASOPHILS % (AUTO) 0.4 % (0.0-2.0); EOSINOPHILS % (AUTO) 4.1 % (0.0-6.0); HEMATOCRIT 38 % (39-51); HEMOGLOBIN 12.5 g/dL (13.5-17.5); LYMPHOCYTES # (AUTO) 1.2 K/uL (0.8-4.8); LYMPHOCYTES % (AUTO) 17.4 % (20.0-44.0); MEAN CORPUSCULAR HGB CONC 33 g/dl (31.0-36.0); MEAN CORPUSCULAR VOLUME 96 fL (80-96); MONOCYTES # (AUTO) 0.5 K/uL (0.1-1.30); MONOCYTES % (AUTO) 6.9 % (2.0-12.0); NEUTROPHILS % (AUTO) 71.2 % (43.0-81.0); PLATELET COUNT (AUTO) 220 K/uL (150-450); RED BLOOD CELL COUNT(AUTO) 3.99 MIL/uL (4.5-6.0)
--- NOTE | 2021-11-05 12:12 | NUR ---
COVID SAMPLE OBTAINED AND SENT TO LAB
[2021-11-05 13:43] LABS: ALBUMIN 3.4 g/dL (3.4-5.0); CARBON DIOXIDE 21 mmol/L (21-32); CHLORIDE 100 mmol/L (98-107); GLUCOSE 88 mg/dL (74-106); POTASSIUM 5.7 mmol/L (3.5-5.1); SODIUM SERUM 138 mmol/L (136-145)
[2021-11-05 14:21] LABS: ALANINE AMINOTRANSFERASE < 6 U/L (12-78); ALKALINE PHOSPHATASE 283 U/L (46-116); ASPARTATE AMINOTRANSFERASE 3 U/L (15-37); BILIRUBIN,DIRECT 0.1 mg/dL (0.0-0.2); BILIRUBIN,TOTAL 0.4 mg/dL (0.2-1.0); TOTAL PROTEIN, SERUM 6.6 g/dL (6.4-8.2)
[2021-11-05 14:25] LABS: CREATININE 13.9 mg/dL (0.6-1.3); UREA NITROGEN, BLOOD 84 mg/dL (7-18)
--- NOTE | 2021-11-05 15:05 | NUR ---
BED 328-1
[2021-11-05] MEDS ORDERED: ONDANSETRON HCL/PF 4 MG/2 ML VIAL IVP PRN (15:30)
[2021-11-05] MEDS ORDERED: hydrALAZINE HCL IV 20 MG VIAL IV PRN (15:30)
[2021-11-05] MEDS ORDERED: ACETAMINOPHEN 325 MG TABLET PO PRN (15:30)
[2021-11-05] MEDS ORDERED: MORPHINE SULFATE INJ 2 MG/ML DISP.SYRIN IV PRN ×2 (15:30→19:00)
--- NOTE | 2021-11-05 16:58 | NUR ---
report given to Nicholas
[2021-11-05] MEDS ORDERED: MORPHINE SULFATE INJ 2 MG/ML DISP.SYRIN ONE (17:03)
--- NOTE | 2021-11-05 17:20 | NUR ---
RN NOTE- PT ARRIVED FROM ED. VS STABLE, AOX4. MADE COMFORTABLE. BEGIN ADMISSION PROCESS
--- NOTE | 2021-11-05 17:21 | NUR ---
PATROL COMMANDER NOTE- 36 Y/O MALE BROUGHT IN FROM ED FOR LT SIDED CHEST PAIN SINCE EARLY THIS AM. PT W PMHX- ESRD / DIALYSIS (BETH,BARBIE,ANDREA), ANXIETY, HTN, CRF. PT W FISTULA TO MANINDER. PERIPHERAL IV 20G TO LAC. PT AOX4, AMBULATORY, KING WITH FROM. INTERACTIVE AND AFFECT APPROPRIATE. STATES HE HAS CURRENT LT SIDE CP #7 (1-10). ED STAFF ADMINISTERED MSO4 1MG IVP [address] ALCARAZ NOTIFIED AND HE SAID HE'D REVIEW ANALGESICS AND OTHER RX,. VS- BP- 145/74, HR- 94, RR- 20, T- 98.4, 02 SATS AT 100% RA. CURRENTLY IN BED RESTING AND EATING DINNER. NEEDS ATTENDED, BED LOCKED, SIDE RAILS UP AND CALL LIGHT IN REACH. MONITOR / ASSIST
[2021-11-05] MEDS: CALCIUM ACETATE 667 MG CAP/TAB PO SCH (17:55)
[2021-11-05] MEDS: SEVELAMER CARBONATE 800 MG TABLET PO SCH (17:55)
[2021-11-05] MEDS: CARVEDILOL 12.5 MG TABLET PO SCH (17:56)
[2021-11-05 18:00] VITALS: BP 145/74
--- NOTE | 2021-11-05 19:46 | NUR ---
HOSPITAL AIDES AND ASSISTANTS TEACHER OPENING RECEIVED PATIENT IN BED, A/OX4. NO S/S OF APPARENT DISTRESS ON ROOM AIR. C/O / PAIN TOLERABLE AT THIS TIME. NO FLUIDS RUNNING AT THIS TIME. SAFETY IN PLACE. WILL CONTINUE WITH PATIENT'S CARE PLAN.
[2021-11-05 20:00] VITALS: BP 109/60
--- NOTE | 2021-11-05 22:00 | NUR ---
LABORATORY ANIMAL CARETAKER NOTE MRSA SWAB OBTAINED AT THIS TIME.
--- NOTE | 2021-11-06 07:05 | NUR ---
EXCHANGE MECHANIC CLOSING PATIENT IN BED WITH EYES CLOSED, EASY TO AROUSE. NO S/S OF APPARENT DISTRESS IN ROOM AIR. NOT C/O PAIN AND DISCOMFORT AT THIS TIME. TELE MONITOR READING SR THROUGHOUT SHIFT WITH 75 BPM. ALL NEEDS ATTENDED. SAFETY KEPT IN PLACE THE WHOLE SHIFT. WILL ENDORSE TO MORNING SHIFT RN FOR CONTINUITY OF CARE.
[2021-11-06 07:38] LABS: BASOPHILS % (AUTO) 0.5 % (0.0-2.0); EOSINOPHILS % (AUTO) 3.6 % (0.0-6.0); HEMATOCRIT 35 % (39-51); HEMOGLOBIN 11.7 g/dL (13.5-17.5); LYMPHOCYTES # (AUTO) 1.8 K/uL (0.8-4.8); LYMPHOCYTES % (AUTO) 29.8 % (20.0-44.0); MEAN CORPUSCULAR HGB CONC 34 g/dl (31.0-36.0); MEAN CORPUSCULAR VOLUME 96 fL (80-96); MONOCYTES # (AUTO) 0.5 K/uL (0.1-1.30); MONOCYTES % (AUTO) 8.3 % (2.0-12.0); NEUTROPHILS # (AUTO) 3.6 K/uL (1.8-8.9); NEUTROPHILS % (AUTO) 57.8 % (43.0-81.0); PLATELET COUNT (AUTO) 182 K/uL (150-450); WHITE BLOOD COUNT (AUTO) 6.2 K/uL (4.3-11.0)
[2021-11-06 08:21] VITALS: BP 103/67
[2021-11-06 08:57] LABS: ALBUMIN 3.3 g/dL (3.4-5.0); BILIRUBIN,TOTAL 0.3 mg/dL (0.2-1.0); CALCIUM, SERUM 8.8 mg/dL (8.5-10.1); MAGNESIUM 2.6 mg/dL (1.8-2.4); TOTAL PROTEIN, SERUM 6.4 g/dL (6.4-8.2)
[2021-11-06] MEDS: CARVEDILOL 12.5 MG TABLET PO SCH ×3 (09:00→17:00)
[2021-11-06] MEDS: SEVELAMER CARBONATE 800 MG TABLET PO SCH ×3 (09:16→18:44)
[2021-11-06] MEDS: CALCIUM ACETATE 667 MG CAP/TAB PO SCH ×3 (09:16→18:44)
--- NOTE | 2021-11-06 09:30 | NUR ---
am coreg held as bp already on low side and probable dialysis today.
[2021-11-06 11:39] LABS: POTASSIUM 6.3 mmol/L (3.5-5.1)
[2021-11-06 12:00] LABS: CREATININE 15.7 mg/dL (0.6-1.3)
[2021-11-06 16:02] VITALS: BP 118/71
[2021-11-06 17:00] VITALS: BP 110/70
--- NOTE | 2021-11-06 18:45 | NUR ---
RECEIVED PT. ALERT AND ORIENTED X4,DR PRESSLEY IN AND DC ORDER GIVEN,BUT CHEM. LABS ELEVATED. CALLED AND DIALYSIS ORDERS GIVEN.PT. DIALYZED X2.5 HRS.REMOVED 1750 L.HEP LOCK OUT,DC PAPERS SIGNED,AWAITING FAMILY AIR DEFENSE ARTILLERY SENIOR SERGEANT OF PT. FOR DC HOME.TELE REMOVED.PT. ENDORSED TO EVE. LEONARD FOR DC.
--- NOTE | 2021-11-06 20:30 | NUR ---
Patient walked down by this RN to family car for D/c. Picked up by car by patience schultz. STable. A&Ox4. D/c VS 133/79, HR 94, RR 20, Temp 98.1, O2 sat 99%. Had all belongings and d/c paperwork. IV already d/c'd prior.
== END 2021-11-06 20:25 | disposition home or self-care (01) | DRG 205 ==
LOC: ER 11:03 → TELE 15:16
PROVIDERS: ADMIT Internal Medicine; ATTEND Internal Medicine
PROC: 5A1D70Z Performance of Urinary Filtration, Intermittent, Less than 6 Hours Per Day (ICD-10-PCS; principal; 2021-11-06)
DX: M94.0 Chondrocostal junction syndrome [Tietze] (principal); N18.6 End stage renal disease; I12.0 Hypertensive chronic kidney disease with stage 5 chronic kidney disease or end stage renal disease; I13.2 Hypertensive heart and chronic kidney disease with heart failure and with stage 5 chronic kidney disease, or end stage renal disease; Z20.822 Contact with and (suspected) exposure to COVID-19; I50.9 Heart failure, unspecified; F41.9 Anxiety disorder, unspecified; I25.2 Old myocardial infarction; Z87.19 Personal history of other diseases of the digestive system; Z90.5 Acquired absence of kidney; Z99.2 Dependence on renal dialysis; Z79.899 Other long term (current) drug therapy; Z90.49 Acquired absence of other specified parts of digestive tract
CPT/HCPCS: 36415; 71045-TC; 80048-TC; 80053-TC; 80076-TC; 83605-TC; 83735-TC; 84100-TC; 84484-TC; 85025-TC; 90935-TC; 93307-TC; G0378; J2270

== ENCOUNTER 2022-08-18 20:09 | Inpatient (IN) | payer MEDICARE, OTHER ==
[~2022-08-18] VITALS: Ht 165.1 cm; Wt 90.7 kg
--- NOTE | 2022-08-18 20:44 | NUR ---
c/o BUE and BLE tingling and weak, s/p HD yesterday 3 liters out "i feel like my potassium is high", pt to bed 1, pt aaxo4, denies sob, nad. pending er provider samia
[2022-08-18 21:32] LABS: BASOPHILS % (AUTO) 0.8 % (0.0-2.0); EOSINOPHILS % (AUTO) 1.9 % (0.0-6.0); HEMATOCRIT 36 % (39-51); HEMOGLOBIN 11.6 g/dL (13.5-17.5); LYMPHOCYTES # (AUTO) 1.4 K/uL (0.8-4.8); LYMPHOCYTES % (AUTO) 22.9 % (20.0-44.0); MEAN CORPUSCULAR HGB CONC 32 g/dl (31.0-36.0); MEAN CORPUSCULAR VOLUME 97 fL (80-96); MONOCYTES # (AUTO) 0.6 K/uL (0.1-1.30); MONOCYTES % (AUTO) 9.7 % (2.0-12.0); NEUTROPHILS # (AUTO) 3.8 K/uL (1.8-8.9); NEUTROPHILS % (AUTO) 64.7 % (43.0-81.0); PLATELET COUNT (AUTO) 209 K/uL (150-450); WHITE BLOOD COUNT (AUTO) 5.9 K/uL (4.3-11.0)
[2022-08-18 21:52] LABS: ALBUMIN 3.7 g/dL (3.4-5.0); BILIRUBIN,TOTAL 0.5 mg/dL (0.2-1.0); CALCIUM, SERUM 9.2 mg/dL (8.5-10.1); TOTAL PROTEIN, SERUM 7.1 g/dL (6.4-8.2)
[2022-08-18 21:56] LABS: CREATININE 11.5 mg/dL (0.6-1.3); POTASSIUM 7.5 mmol/L (3.5-5.1)
[2022-08-18] MEDS ORDERED: Calcium Gluconate 1GM/10ML 4.65 MEQ in IV NS 0.9% 100 ML IV ONE (22:00)
[2022-08-18] MEDS ORDERED: INSULIN REGULAR, HUMAN 100 UNIT/ML 10 ML VIAL IV ONE (22:00)
[2022-08-18] MEDS ORDERED: DEXTROSE 50%-WATER 50 ML DISP.SYRIN IVP ONE (22:00)
[2022-08-18] MEDS ORDERED: ALBUTEROL FS 2.5 MG/3 ML VIAL.NEB CONTNEB ONE (22:00)
--- NOTE | 2022-08-18 22:00 | NUR ---
K 7.5, ermd aware
[2022-08-18] MEDS ORDERED: Calcium Gluconate 0.465 MEQ/ML VIAL IV ONE (22:03)
[2022-08-18] MEDS ORDERED: INSULIN REGULAR, HUMAN 100 UNIT/ML 10 ML VIAL ONE (22:04)
[2022-08-18] MEDS ORDERED: DEXTROSE 50%-WATER 50 ML DISP.SYRIN ONE (22:04)
--- NOTE | 2022-08-18 22:15 | NUR ---
xray at bs
--- NOTE | 2022-08-18 22:20 | NUR ---
called rt for breathing tx
[2022-08-18] MEDS ORDERED: ALBUTEROL FS 2.5 MG/3 ML VIAL.NEB ONE (22:21)
[2022-08-19] MEDS ORDERED: Z GUARD REMEDY 4 OZ OINT TP PRN (03:00)
[2022-08-19] MEDS ORDERED: ZOLPIDEM TARTRATE 5 MG TABLET PO PRN (03:00)
[2022-08-19] MEDS ORDERED: MAG HYDROX/AL HYDROX/SIMETH 30 ML UDC PO PRN (03:00)
[2022-08-19] MEDS ORDERED: ACETAMINOPHEN 325 MG TABLET PO PRN (03:00)
[2022-08-19] MEDS ORDERED: ONDANSETRON HCL/PF 4 MG/2 ML VIAL IVP PRN (03:00)
[2022-08-19] MEDS ORDERED: MAGNESIUM HYDROXIDE 30 ML UDC PO PRN (03:00)
[2022-08-19] MEDS ORDERED: SODIUM POLYSTYRENE SULFONATE 15 G/60 ML BOTTLE RC ONE (03:00)
[2022-08-19] MEDS ORDERED: SODIUM POLYSTYRENE SULFONATE 15 G/60 ML BOTTLE ONE (05:57)
[2022-08-19] MEDS ORDERED: ENOXAPARIN SODIUM 30 MG/0.3 ML DISP.SYRIN ONE (05:57)
[2022-08-19] MEDS: ENOXAPARIN SODIUM 30 MG/0.3 ML DISP.SYRIN SQ SCH (06:00)
--- NOTE | 2022-08-19 07:32 | NUR ---
pt resting in bed, vital signs wnl. aa0x4.
--- NOTE | 2022-08-19 07:34 | NUR ---
pt ambulated to the restroom, steady gait.
--- NOTE | 2022-08-19 07:47 | NUR ---
BED 324-1
--- NOTE | 2022-08-19 07:55 | NUR ---
REPORT GIVEN TO LUCIA LEONARD. PREPARING TO MOVE PT UP TO 324-1.
--- NOTE | 2022-08-19 08:06 | NUR ---
PT TRANSPORTED TO [facility]– [place] VIA [facility].
--- NOTE | 2022-08-19 08:30 | NUR ---
MANAGER IMMUNOLOGY NOTE ADMITTED FOR ER IS A 37 YO MALE TRANSPORTED ON A GURNEY ACCOMPANIED BY 2 NURSES. PATIENT ABLE TO TRANSFER FROM THE GURNEY TO BED WITH LITTLE ASSISTANCE. PATIENT IS ALERT AND ORIENTED X 4. PATIENT ON ROOM AIR WITH EQUAL AND UNLABORED BREATHING WITH NO APPARENT RESPIRATORY DISTRESS. PATIENT WITH LEFT UPPER ARM AV FISTULA WITH POSITIVE THRILL AND BRUIT. MAINTAINED ON HIGH BACK REST. SAFETY MEASURES ENSURED WITH BED ON LOWEST, LOCKED POSITION, SIDERAILS RAISED AND CALL LIGHT WITHIN REACH AT ALL TIMES. IN STABLE CONDITION. WILL CONTINUE WITH PLAN OF CARE.
--- NOTE | 2022-08-19 10:00 | NUR ---
LOSS CLAIM CLERK NOTE HEALTH TEACHING DONE REGARDING ADMISSION AND ADMISSION PROTOCOL. REFUSED BODY CHECK. IN STABLE CONDITION.
[2022-08-19 12:00] VITALS: BP 121/75
--- NOTE | 2022-08-19 12:10 | NUR ---
TOOL PROFILING MACHINE SET UP OPERATOR NOTE PATIENT WITH ORDER FOR HD. PATIENT IS SELF RESPONSIBLE AND SIGNED CONSENT FOR HD. SIGNED HD FORM ATTACHED TO CHART. ENDORSED ACCORDINGLY.
[2022-08-19] MEDS: CALCIUM ACETATE 667 MG CAP/TAB PO SCH ×2 (13:16→18:00)
[2022-08-19] MEDS: SEVELAMER CARBONATE 800 MG POWD.PACK GT SCH ×2 (13:17→18:00)
[2022-08-19] MEDS: CARVEDILOL 12.5 MG TABLET PO SCH ×2 (13:20→21:00)
[2022-08-19 16:00] VITALS: BP 120/60
--- NOTE | 2022-08-19 19:03 | NUR ---
SAFETY RELIEF VALVE TECHNICIAN CLOSING NOTE PATIENT IN BED RESTING, A/O X 4; ON ROOM AIR, BREATHING EVENLY AND NO RESPIRATORY DISTRESS NOTED, TOLERATING WELL; WITH LEFT AV FISTULA, WITH POSITIVE BRUIT AND SHRILL NOTED; ON TELE MONITORING CURRENTLY READING SINUS RHYTHM 83 BPM; ADMINISTERED MEDICATIONS PRESCRIBED; PATIENTS NEEDS ATTENDED; SAFETY PRECAUTIONS IN PLACED, BED IN LOWEST POSITION, LOCKED, SIDE RAILS UP X 2, CALL LIGHT WITHIN REACH; WILL ENDORSE TO FACILITIES MAINTENANCE ENGINEER NURSE FOR CONTINUITY OF CARE
--- NOTE | 2022-08-19 19:55 | NUR ---
ADMINISTRATIVE ASSISTANT OPENING NOTE PATIENT AWAKE IN BED, ALERT/ORIENTED X 4, PT ABLE TO MAKE NEEDS KNOWN. PATIENT DENIES PAIN OR DISCOMFORT AT THIS TIME. PT STABLE ON RA, NO S/S OF DISTRESS OR SOB NOTED, BREATHING EVEN AND UNLABORED. PT ON EXTERNAL HEALTH CARE COORDINATOR READING SINUS TACHY, HR: 106. PATIENT AMBULATED TO BATHROOM WITH STEADY GAIT. PATIENT NOTED WITH LEFT ARM AV FISTULA. IV ACCESS ON RAC #20G INTACT AND SALINE LOCKED. SAFETY MEASURES IN PLACE: CALL LIGHT WITHIN REACH, SIDE RAILS UP X 2, BED LOCKED IN LOWEST POSITION. WILL CONTINUE TO MONITOR PATIENT
[2022-08-19 20:00] VITALS: BP 105/60
--- NOTE | 2022-08-19 21:31 | NUR ---
PHOTO PRODUCER NOTE PATIENT HAS SCHEDULED COREG 25 MG BUT BP IS LOW, PATIENT BP 105/60, HR: 77. MEDICATION ALSO SCHEDULED FOR Q12H BUT WAS GIVEN 8 HOURS AGO. WILL CONTINUE TO MONITOR
[2022-08-20] VITALS: BP 122/68
[2022-08-20] MEDS: ENOXAPARIN SODIUM 30 MG/0.3 ML DISP.SYRIN SQ SCH (06:28)
--- NOTE | 2022-08-20 06:59 | NUR ---
POWER SCREWDRIVER OPERATOR CLOSING NOTE PATIENT SLEEPING IN BED, ALERT/ORIENTED X 4, PT ABLE TO MAKE NEEDS KNOWN. PATIENT DENIES PAIN OR DISCOMFORT AT THIS TIME. PT STABLE ON RA, NO S/S OF DISTRESS OR SOB NOTED, BREATHING EVEN AND UNLABORED. PT ON EXTERNAL PLUG MACHINE OPERATOR READING SINUS RHYTHM, HR: 78. PATIENT AMBULATED TO BATHROOM WITH STEADY GAIT. PATIENT NOTED WITH LEFT ARM AV FISTULA. IV ACCESS ON RAC #20G INTACT AND SALINE LOCKED. NO SIGNIFICANT CHANGES THIS SHIFT, PATIENT SLEPT WELL ALL NIGHT, MEDICATIONS GIVEN ORDERED, PT NEEDS MET THROUGHOUT SHIFT. SAFETY MEASURES IN PLACE: CALL LIGHT WITHIN REACH, SIDE RAILS UP X 2, BED LOCKED IN LOWEST POSITION. WILL ENDORSE TO DAYSHIFT RN FOR CONTINUITY OF CARE
[2022-08-20 07:00] LABS: BASOPHILS % (AUTO) 0.5 % (0.0-2.0); EOSINOPHILS % (AUTO) 3.7 % (0.0-6.0); HEMATOCRIT 35 % (39-51); HEMOGLOBIN 11.3 g/dL (13.5-17.5); LYMPHOCYTES # (AUTO) 1.6 K/uL (0.8-4.8); LYMPHOCYTES % (AUTO) 26.3 % (20.0-44.0); MEAN CORPUSCULAR HGB CONC 32 g/dl (31.0-36.0); MEAN CORPUSCULAR VOLUME 97 fL (80-96); MONOCYTES # (AUTO) 0.5 K/uL (0.1-1.30); NEUTROPHILS # (AUTO) 3.7 K/uL (1.8-8.9); NEUTROPHILS % (AUTO) 60.5 % (43.0-81.0); PLATELET COUNT (AUTO) 191 K/uL (150-450)
[2022-08-20 07:14] LABS: CALCIUM, SERUM 9.5 mg/dL (8.5-10.1)
--- NOTE | 2022-08-20 07:20 | NUR ---
OPERATIONS RESEARCH MANAGER OPENING NOTE PATIENT AWAKE IN BED, ALERT/ORIENTED X 4, PT ABLE TO MAKE NEEDS KNOWN. PATIENT DENIES PAIN OR DISCOMFORT AT THIS TIME. PT STABLE ON RA, NO S/S OF DISTRESS OR SOB NOTED, BREATHING EVEN AND UNLABORED. PT ON EXTERNAL ENTRY LEVEL SOFTWARE ENGINEER READING SINUS TACHY, HR: 104. PATIENT AMBULATORY. PT WITH LEFT ARM AV FISTULA. IV ACCESS ON RAC #20G INTACT AND SALINE LOCKED. SAFETY MEASURES IN PLACE: CALL LIGHT WITHIN REACH, SIDE RAILS UP X 2, BED LOCKED IN LOWEST POSITION. WILL CONTINUE TO MONITOR THE PT
[2022-08-20 07:31] LABS: CREATININE 11.4 mg/dL (0.6-1.3); PHOSPHORUS 8.8 mg/dL (2.5-4.9); POTASSIUM 6.6 mmol/L (3.5-5.1)
--- NOTE | 2022-08-20 07:45 | NUR ---
received critical labs, INFO RELAYED TO DR SMART & BLADIMIR COMBS
[2022-08-20 08:00] VITALS: BP 102/54
[2022-08-20] MEDS: SEVELAMER CARBONATE 800 MG POWD.PACK GT SCH (08:34)
[2022-08-20] MEDS: CALCIUM ACETATE 667 MG CAP/TAB PO SCH ×3 (08:35→17:04)
[2022-08-20] MEDS: CARVEDILOL 12.5 MG TABLET PO SCH ×2 (08:50→20:35)
[2022-08-20 12:00] VITALS: BP 96/58
[2022-08-20] MEDS ORDERED: SEVELAMER CARBONATE 800 MG POWD.PACK GT SCH (13:00)
[2022-08-20] MEDS: SEVELAMER CARBONATE 800 MG TABLET PO SCH ×2 (13:30→17:04)
[2022-08-20 16:00] VITALS: BP 105/58
[2022-08-20 17:04] LABS: CALCIUM, SERUM 9.3 mg/dL (8.5-10.1); CREATININE 6.8 mg/dL (0.6-1.3)
--- NOTE | 2022-08-20 18:27 | NUR ---
VP OF TECHNOLOGY CLOSING NOTE PATIENT RESTING IN BED, ALERT/ORIENTED X 4, PT ABLE TO MAKE NEEDS KNOWN. PATIENT DENIES PAIN OR DISCOMFORT AT THIS TIME. PT STABLE ON RA, NO S/S OF DISTRESS OR SOB NOTED, BREATHING EVEN AND UNLABORED. PT ON EXTERNAL ADULT DAY CARE WORKER READING SINUS RHYTHM, HR: 79. PT IS AMBULATORY, WITH LEFT ARM AV FISTULA. IV ACCESS ON RAC #20G INTACT AND SALINE LOCKED. MEDICATIONS GIVEN ORDERED, PT NEEDS MET THROUGHOUT SHIFT. SAFETY MEASURES IN PLACE: CALL LIGHT WITHIN REACH, SIDE RAILS UP X 2, BED LOCKED IN LOWEST POSITION. WILL ENDORSE TO DAYSHIFT RN FOR CONTINUITY OF CARE
--- NOTE | 2022-08-20 19:58 | NUR ---
TELESALES REPRESENTATIVE OPENING NOTE PATIENT SLEEPING IN BED, EASILY AWAKENED, ALERT/ORIENTED X 4, PT ABLE TO MAKE NEEDS KNOWN. PATIENT DENIES PAIN OR DISCOMFORT AT THIS TIME. PT STABLE ON RA, NO S/S OF DISTRESS OR SOB NOTED, BREATHING EVEN AND UNLABORED. PT ON EXTERNAL VIDEO PRODUCTION SPECIALIST READING SINUS RHYTHM, HR: 72. PATIENT NOTED WITH LEFT ARM AV FISTULA. IV ACCESS ON RAC #20G INTACT AND SALINE LOCKED. SAFETY MEASURES IN PLACE: CALL LIGHT WITHIN REACH, SIDE RAILS UP X 2, BED LOCKED IN LOWEST POSITION. WILL CONTINUE TO MONITOR PATIENT
[2022-08-20 20:00] VITALS: BP 95/51
--- NOTE | 2022-08-20 20:36 | NUR ---
GROUP SEGMENT CONSULTANT NOTE HELD SCHEDULED COREG 25 MG D/T LOW BP, BP 95/57, HR: 76. WILL CONTINUE TO MONITOR
[2022-08-21] VITALS: BP 109/57
[2022-08-21 04:00] VITALS: BP 93/50
[2022-08-21 06:45] LABS: BASOPHILS % (AUTO) 0.5 % (0.0-2.0); CALCIUM, SERUM 9.7 mg/dL (8.5-10.1); EOSINOPHILS % (AUTO) 3.8 % (0.0-6.0); HEMATOCRIT 35 % (39-51); HEMOGLOBIN 11.3 g/dL (13.5-17.5); LYMPHOCYTES # (AUTO) 1.4 K/uL (0.8-4.8); LYMPHOCYTES % (AUTO) 29.9 % (20.0-44.0); MAGNESIUM 2.8 mg/dL (1.8-2.4); MEAN CORPUSCULAR HGB CONC 33 g/dl (31.0-36.0); MEAN CORPUSCULAR VOLUME 96 fL (80-96); MONOCYTES # (AUTO) 0.5 K/uL (0.1-1.30); MONOCYTES % (AUTO) 10.2 % (2.0-12.0); NEUTROPHILS # (AUTO) 2.7 K/uL (1.8-8.9); NEUTROPHILS % (AUTO) 55.6 % (43.0-81.0); PLATELET COUNT (AUTO) 184 K/uL (150-450); WHITE BLOOD COUNT (AUTO) 4.8 K/uL (4.3-11.0)
[2022-08-21 07:00] VITALS: BP 112/72
[2022-08-21] MEDS: ENOXAPARIN SODIUM 30 MG/0.3 ML DISP.SYRIN SQ SCH (07:03)
--- NOTE | 2022-08-21 07:37 | NUR ---
GEAR HOBBER OPERATOR CLOSING NOTE PATIENT SLEEPING IN BED, ALERT/ORIENTED X 4, PT ABLE TO MAKE NEEDS KNOWN. PATIENT DENIES PAIN OR DISCOMFORT AT THIS TIME. PT STABLE ON RA, NO S/S OF DISTRESS OR SOB NOTED, BREATHING EVEN AND UNLABORED. PT ON EXTERNAL ASPHALT SPREADER OPERATOR READING SINUS RHYTHM. PATIENT WITH LEFT ARM AV FISTULA. IV ACCESS ON RAC #20G INTACT AND SALINE LOCKED. NO SIGNIFICANT CHANGES THIS SHIFT, PATIENT SLEPT WELL ALL NIGHT, MEDICATIONS GIVEN ORDERED, PT NEEDS MET THROUGHOUT SHIFT. SAFETY MEASURES IN PLACE: CALL LIGHT WITHIN REACH, SIDE RAILS UP X 2, BED LOCKED IN LOWEST POSITION. WILL ENDORSE TO DAYSHIFT RN FOR CONTINUITY OF CARE
--- NOTE | 2022-08-21 07:45 | NUR ---
PROCUREMENT TECHNICIAN OPENING NOTE RECEIVED PATIENT ON BED AWAKE , ALERT/ORIENTED X 4, ABLE TO MAKE NEEDS KNOWN. NO C/O PAIN OR DISCOMFORT AT THIS TIME. PT STABLE ON RA, NO S/S OF DISTRESS OR SOB NOTED, BREATHING EVEN AND UNLABORED. PT ON EXTERNAL TRAFFIC INCIDENT MANAGEMENT MANAGER READING SINUS RHYTHM, HR: 68 . PATIENT NOTED WITH LEFT ARM AV FISTULA. IV ACCESS ON RAC #20G INTACT AND SALINE LOCKED. SAFETY MEASURES IN PLACE: CALL LIGHT WITHIN REACH, SIDE RAILS UP X 2, BED LOCKED IN LOWEST POSITION. WILL CONTINUE TO MONITOR PATIENT
[2022-08-21] MEDS: CALCIUM ACETATE 667 MG CAP/TAB PO SCH ×3 (07:59→17:37)
[2022-08-21] MEDS: SEVELAMER CARBONATE 800 MG TABLET PO SCH ×3 (07:59→17:36)
[2022-08-21] MEDS: CARVEDILOL 12.5 MG TABLET PO SCH ×2 (09:07→22:00)
[2022-08-21 16:00] VITALS: BP 107/59
--- NOTE | 2022-08-21 19:10 | NUR ---
BUSINESS INTELLIGENCE CONSULTANT OPENING NOTE PATIENT IS SITTING AT HIS BED SIDE, ALERT AND ORIENTED. AO X 4. HE IS ON RA, TOLERATED WELL. NO S/S OF SOB OR DISTRESS. PATIENT HAS IV ACCESS AT HIS R AC, #20G, SL; F; FLUSHED WITH 10 CC NS, PATENT AND INTACT. DIALYSIS ACCESS IS AT HIS L AV FISTULA; PATENT AND INTACT. PATIENT IS ON EXTERNAL ACCOUNT SERVICE REPRESENTATIVE, ON THE MONITOR, HIS HEART RHYTHM IS SR, AND HR IS AROUND 70S. SAFETY MEASURES ARE IN PLACE: BED IN LOWEST AND LOCKED POSITION; SIDE RAILS UP X 2; CALL LIGHT AND TABLE ARE WITHIN REACH. WILL CONTINUE MONITOR THE PATIENT AND PROVIDE THE CARE PATIENT NEEDS.
--- NOTE | 2022-08-21 19:40 | NUR ---
HULL GRINDER NOTE ACCORDING TO THE CHANGE SHIFT REPORT, RN NOTIFIED THE DIALYSIS NURSE, ALEXANDR LEONARD, TO OBTAIN THE ORDER FROM DR. COMBS FOR DIALYSIS FOR THIS PATIENT TODAY. TALKED WITH ALEXANDR LEONARD, SHE SAID SHE TEXT DR. COMBS, NOT RECEIVING HIS REPLY YET.
--- NOTE | 2022-08-21 19:45 | NUR ---
NUCLEAR PHARMACIST CLOSING NOTE PATIENT ON BED AWAKE , ALERT/ORIENTED X 4, ABLE TO MAKE NEEDS KNOWN. NO C/O PAIN OR DISCOMFORT AT THIS TIME. PT STABLE ON RA, NO S/S OF DISTRESS OR SOB NOTED, BREATHING EVEN AND UNLABORED. PT ON EXTERNAL CUSTOMER FACILITIES SUPERVISOR READING SINUS RHYTHM, HR: 76 . PATIENT NOTED WITH LEFT ARM AV FISTULA. IV ACCESS ON RAC #20G INTACT AND SALINE LOCKED. ALL DUE MEDS ORDERED , SEEN BY DR TOVAR AND SAID FOR DIALYSIS TODAY , DIALYSIS NURSE MADE AWARE . SAFETY MEASURES IN PLACE: CALL LIGHT WITHIN REACH, SIDE RAILS UP X 2, BED LOCKED IN LOWEST POSITION. ENDORSED TO NEXT SHIFT
[2022-08-21 20:00] VITALS: BP 107/53
--- NOTE | 2022-08-21 20:10 | NUR ---
HEARING SPECIALIST NOTE PATIENT IS SEEN BY DR. COMBS. THE PATIENT AND DIALYSIS NURSE WERE NOTIFIED BY THE MD THAT THE PATIENT WOULD HAVE DIALYSIS TOMORROW.
--- NOTE | 2022-08-21 22:03 | NUR ---
BLOOD BANK LABORATORY PROFESSIONAL NOTE PATIENT'S BLOOD PRESSURE MEDICATION COREG 25 MG WAS HELD DUE TO LOW BP. BP IS 107/53. HR IS 78. CHECKED THE PATIENT, AND LET THE PATIENT KNOW THAT HIS BLOOD PRESSURE IS LOW SO THE MEDICATION IS ON HOLD. PT STATED HIS BP 'HAS BEEN LOW".
--- NOTE | 2022-08-21 22:06 | NUR ---
SUPERINTENDENT COMMISSARY NOTE RETURNED THE COREG BACK TO THE [facility].
[2022-08-22] VITALS: BP 125/61
[2022-08-22 04:00] VITALS: BP 110/65
[2022-08-22] MEDS: ENOXAPARIN SODIUM 30 MG/0.3 ML DISP.SYRIN SQ SCH (05:18)
[2022-08-22 06:15] LABS: BASOPHILS % (AUTO) 0.4 % (0.0-2.0); EOSINOPHILS % (AUTO) 3.7 % (0.0-6.0); HEMATOCRIT 33 % (39-51); LYMPHOCYTES # (AUTO) 1.7 K/uL (0.8-4.8); LYMPHOCYTES % (AUTO) 32.4 % (20.0-44.0); MEAN CORPUSCULAR HGB CONC 33 g/dl (31.0-36.0); MEAN CORPUSCULAR VOLUME 95 fL (80-96); MONOCYTES # (AUTO) 0.5 K/uL (0.1-1.30); MONOCYTES % (AUTO) 9.9 % (2.0-12.0); NEUTROPHILS # (AUTO) 2.9 K/uL (1.8-8.9); NEUTROPHILS % (AUTO) 53.6 % (43.0-81.0); PLATELET COUNT (AUTO) 175 K/uL (150-450); RED BLOOD CELL COUNT(AUTO) 3.44 MIL/uL (4.5-6.0); WHITE BLOOD COUNT (AUTO) 5.3 K/uL (4.3-11.0)
--- NOTE | 2022-08-22 06:42 | NUR ---
RETAIL PRODUCT ADVISOR CLOSING NOTE PATIENT IS SLEEPING IN BED, EASILY BEING AROUSED. HE IS ALERT AND ORIENTED. AO X 4. HE IS ON RA, TOLERATED WELL. NO S/S OF SOB OR DISTRESS. PATIENT HAS IV ACCESS AT HIS R AC, #20G, SL; FLUSHED WITH 10 CC NS, PATENT AND INTACT. DIALYSIS ACCESS IS AT HIS L AV FISTULA; PATENT AND INTACT. PATIENT IS ON EXTERNAL CAKE PRESS OPERATOR, ON THE MONITOR, HIS HEART RHYTHM IS SR, AND HR IS AROUND 70S. PT IS GOING TO HAVE HEMO DIALYSIS TODAY PER MD ORDER. SAFETY MEASURES ARE IN PLACE: BED IN LOWEST AND LOCKED POSITION; SIDE RAILS UP X 2; CALL LIGHT AND TABLE ARE WITHIN REACH. WILL ENDORSE THE NEXT SHIFT NURSE FOR CONTINUING PATIENT CARE.
[2022-08-22 07:00] VITALS: BP 114/58
[2022-08-22 07:04] LABS: CALCIUM, SERUM 9.4 mg/dL (8.5-10.1); MAGNESIUM 2.9 mg/dL (1.8-2.4); POTASSIUM 5.6 mmol/L (3.5-5.1)
[2022-08-22 07:13] LABS: CREATININE 11.8 mg/dL (0.6-1.3)
[2022-08-22 07:14] LABS: PHOSPHORUS 9.4 mg/dL (2.5-4.9)
--- NOTE | 2022-08-22 07:50 | NUR ---
[place]ETLANDS TECHNICIAN OPENING NOTE PATIENT AWAKE IN BED, AO X 4. HE IS ON RA, TOLERATED WELL. NO S/S OF SOB OR DISTRESS. PATIENT HAS IV ACCESS AT HIS R AC, #20G, SL; FLUSHED WITH 10 CC NS, PATENT AND INTACT. DIALYSIS ACCESS IS AT HIS L AV FISTULA; PATENT AND INTACT. PATIENT IS ON EXTERNAL TEACHER OF THE SIGHT IMPAIRED, ON THE MONITOR, HIS HEART RHYTHM IS SR, AND HR IS AROUND 70S. PT IS GOING TO HAVE HEMO DIALYSIS TODAY PER MD ORDER. SAFETY MEASURES ARE IN PLACE: BED IN LOWEST AND LOCKED POSITION; SIDE RAILS UP X 2; CALL LIGHT AND TABLE ARE WITHIN REACH. WILL MONITOR.
[2022-08-22] MEDS: CALCIUM ACETATE 667 MG CAP/TAB PO SCH ×3 (08:20→17:09)
[2022-08-22] MEDS: SEVELAMER CARBONATE 800 MG TABLET PO SCH ×3 (08:21→17:08)
[2022-08-22] MEDS: CARVEDILOL 12.5 MG TABLET PO SCH ×2 (08:35→20:51)
[2022-08-22] MEDS ORDERED: CALCIUM ACETATE 667 MG CAP/TAB PO ONE (13:30)
[2022-08-22 16:00] VITALS: BP 118/77
--- NOTE | 2022-08-22 18:26 | NUR ---
LEAD TECHNICAL ARCHITECT CLOSING NOTE PATIENT AWAKE IN BED, AO X 4. ON RA, TOLERATED WELL. NO S/S OF SOB OR DISTRESS. PATIENT HAS IV ACCESS AT HIS R AC, #20G, SL; FLUSHED WITH 10 CC NS, PATENT AND INTACT. DIALYSIS ACCESS IS AT HIS L AV FISTULA; PATENT AND INTACT. PATIENT IS ON EXTERNAL MISSILE INSPECTOR PREFLIGHT, ON THE MONITOR, HIS HEART RHYTHM IS SR, AND HR IS AROUND 70S. PATIENT HAD HEMODIALYSIS TODAY, NO COMPLICATIONS NOTED. DUE MEDS GIVEN. SAFETY MEASURES ARE IN PLACE: BED IN LOWEST AND LOCKED POSITION; SIDE RAILS UP X 2; CALL LIGHT AND TABLE ARE WITHIN REACH. WILL ENDORSE THE NEXT SHIFT NURSE FOR CONTINUING PATIENT CARE.
--- NOTE | 2022-08-22 19:00 | NUR ---
FINANCIAL INTERNSHIP OPENING NOTE PATIENT IS SITTING IN BED, ALERT AND ORIENTED. AO X 4. HE IS ON RA, TOLERATED WELL. NO S/S OF SOB OR DISTRESS. PATIENT HAS IV ACCESS AT HIS R AC, #20G, SL; FLUSHED WITH 10 CC NS, PATENT AND INTACT. DIALYSIS ACCESS IS AT HIS L UA, AV FISTULA; PATENT AND INTACT. PATIENT IS ON EXTERNAL REFRACTORY TECHNICIAN, ON THE MONITOR, HIS HEART RHYTHM IS SR, AND HR IS AROUND 70S. ACCORDING TO THE CHANGE SHIFT REPORT, PATIENT HAD HD DURING DAY SHIFT, THE OUTPUT IS 2000 ML. SAFETY MEASURES ARE IN PLACE: BED IN LOWEST AND LOCKED POSITION; SIDE RAILS UP X 2; CALL LIGHT AND TABLE ARE WITHIN REACH. WILL CONTINUE MONITOR THE PATIENT AND PROVIDE THE CARE PATIENT NEEDS.
[2022-08-22 20:15] VITALS: BP 107/63
[2022-08-22 23:49] VITALS: BP 100/53
[2022-08-23 04:23] VITALS: BP 91/46
--- NOTE | 2022-08-23 04:24 | NUR ---
PERFECT BINDER OPERATOR NOTE PATIENT'S BP IS 91/46. ACCESSED THE PATIENT; PATIENT STATED " I HAVE BEEN HAVING LOW BLOOD PRESSURE" . PATIENT IS ASYMPTOMATIC; HIS HR IS 66; BODY TEMPERATURE IS 97.8 F AXILLARY; O2 SAT IS 100% WITH RA.
[2022-08-23] MEDS: ENOXAPARIN SODIUM 30 MG/0.3 ML DISP.SYRIN SQ SCH (05:03)
[2022-08-23 05:49] LABS: BASOPHILS % (AUTO) 0.4 % (0.0-2.0); EOSINOPHILS % (AUTO) 4.1 % (0.0-6.0); HEMATOCRIT 31 % (39-51); HEMOGLOBIN 10.5 g/dL (13.5-17.5); LYMPHOCYTES # (AUTO) 1.6 K/uL (0.8-4.8); LYMPHOCYTES % (AUTO) 33.8 % (20.0-44.0); MEAN CORPUSCULAR HGB CONC 34 g/dl (31.0-36.0); MEAN CORPUSCULAR VOLUME 95 fL (80-96); MONOCYTES # (AUTO) 0.5 K/uL (0.1-1.30); MONOCYTES % (AUTO) 9.8 % (2.0-12.0); NEUTROPHILS # (AUTO) 2.5 K/uL (1.8-8.9); NEUTROPHILS % (AUTO) 51.9 % (43.0-81.0); PLATELET COUNT (AUTO) 157 K/uL (150-450); RED BLOOD CELL COUNT(AUTO) 3.29 MIL/uL (4.5-6.0); WHITE BLOOD COUNT (AUTO) 4.8 K/uL (4.3-11.0)
[2022-08-23 06:12] LABS: CALCIUM, SERUM 9.2 mg/dL (8.5-10.1); MAGNESIUM 2.6 mg/dL (1.8-2.4); PHOSPHORUS 7.4 mg/dL (2.5-4.9); POTASSIUM 5.2 mmol/L (3.5-5.1)
[2022-08-23 06:32] LABS: CREATININE 8.7 mg/dL (0.6-1.3)
--- NOTE | 2022-08-23 06:40 | NUR ---
PARIMUTUEL CASHIER NOTE CRITICAL LAB RESULT RECEIVED FROM LAB. PATIENT'S CREATININE IS 8.7; WHICH IS TRENDING DOWN. WILL ENDORSE NEXT SHIFT NURSE TO FOLLOW UP.
--- NOTE | 2022-08-23 07:00 | NUR ---
CARPENTER ROUGH CLOSING NOTE PATIENT IS SLEEPING IN BED, EASILY BEING AROUSED. HE IS ALERT AND ORIENTED. AO X 4. HE IS ON RA, TOLERATED WELL. NO S/S OF SOB OR DISTRESS. PATIENTS IV ACCESS IS AT HIS R AC, #20G, SL; PATENT AND INTACT. DIALYSIS ACCESS IS AT HIS L AV FISTULA; PATENT AND INTACT. PATIENT IS ON EXTERNAL SUBSORTER, ON THE MONITOR, HIS HEART RHYTHM IS SR, AND HR IS AROUND 70S. SAFETY MEASURES ARE IN PLACE: BED IN LOWEST AND LOCKED POSITION; SIDE RAILS UP X 2; CALL LIGHT AND TABLE ARE WITHIN REACH. PATIENTS 0400 VITAL SIGNS, HIS BLOOD PRESSURE IS LOW. PT IS GOING TO HAVE HEMO DIALYSIS TODAY PER MD ORDER. WILL ENDORSE THE NEXT SHIFT NURSE FOR CONTINUING PATIENT CARE.
--- NOTE | 2022-08-23 07:34 | NUR ---
MACHINE STEMMER NOTES PT IN BED, AWAKE, ALERT AND ORIENTED, NO COMPLAINT OF PAIN, NOT IN DISTRESS, CALL LIGHT WITHIN REACH, NEEDS ATTENDED, KEPT WARM AND COMFORTABLE IN BED.
[2022-08-23] MEDS: CALCIUM ACETATE 667 MG CAP/TAB PO SCH ×3 (07:58→17:19)
[2022-08-23] MEDS: SEVELAMER CARBONATE 800 MG TABLET PO SCH ×3 (07:58→17:19)
[2022-08-23 08:00] VITALS: BP 93/50
[2022-08-23] MEDS: CARVEDILOL 12.5 MG TABLET PO SCH ×2 (09:00→21:01)
[2022-08-23 12:00] VITALS: BP 111/61
[2022-08-23 16:00] VITALS: BP 114/60
--- NOTE | 2022-08-23 18:20 | NUR ---
STAINED GLASS JOINER NOTES PT IN BED, RESTING, NO COMPLAINT OF PAIN OR ANY DISCOMFORT, ABLE TO AMBULATE TO THE BATHROOM WITH STEADY GAIT, REMAINS ON SR ON THE MONITOR, COMPLETED HD TODAY AND TOLERATED WELL, WITH GOOD APPETITE, PM MEDS GIVEN, ALL NEEDS ATTENDED.
--- NOTE | 2022-08-23 19:00 | NUR ---
DIRECTOR CARD OPENING NOTE PATIENT IS SITTING IN BED, ALERT AND ORIENTED. AO X 4. HE IS ON RA, TOLERATED WELL. NO S/S OF SOB OR DISTRESS. PATIENT HAS IV ACCESS AT HIS R AC, #20G, SL; FLUSHED WITH 10 CC NS, PATENT AND INTACT. DIALYSIS ACCESS IS AT HIS L UA, AV FISTULA; PATENT AND INTACT. PATIENT IS ON EXTERNAL HEAT READER, ON THE MONITOR, HIS HEART RHYTHM IS SR, AND HR IS AROUND 70S. ACCORDING TO THE CHANGE SHIFT REPORT, PATIENT HAD HD DURING DAY SHIFT, THE OUTPUT IS 2000 ML. PATIENT WILL BE ON NPO AFTER MIDNIGHT. EDUCATED THE PATIENT FOR THE NPO, PT VERBALIZED UNDERSTANDING. SAFETY MEASURES ARE IN PLACE: BED IN LOWEST AND LOCKED POSITION; SIDE RAILS UP X 2; CALL LIGHT AND TABLE ARE WITHIN REACH. WILL CONTINUE MONITOR THE PATIENT AND PROVIDE THE CARE PATIENT NEEDS.
[2022-08-23 20:00] VITALS: BP 114/70
[2022-08-24] VITALS: BP 105/54
[2022-08-24 04:00] VITALS: BP 97/52
[2022-08-24] MEDS: ENOXAPARIN SODIUM 30 MG/0.3 ML DISP.SYRIN SQ SCH (05:33)
--- NOTE | 2022-08-24 05:33 | NUR ---
ACQUISITION MARKETING MANAGER NOTE PATIENT IS GOING TO HAVE XR FISTULOGRAM SINUS TRACT. LOVENOX WAS HELD THIS MORNING. CHARGE NURSE, BENNY BOLAND.
[2022-08-24 06:18] LABS: BASOPHILS % (AUTO) 0.8 % (0.0-2.0); EOSINOPHILS % (AUTO) 3.7 % (0.0-6.0); HEMATOCRIT 32 % (39-51); HEMOGLOBIN 10.5 g/dL (13.5-17.5); LYMPHOCYTES # (AUTO) 1.7 K/uL (0.8-4.8); LYMPHOCYTES % (AUTO) 33.1 % (20.0-44.0); MEAN CORPUSCULAR HGB CONC 33 g/dl (31.0-36.0); MEAN CORPUSCULAR VOLUME 97 fL (80-96); MONOCYTES # (AUTO) 0.5 K/uL (0.1-1.30); MONOCYTES % (AUTO) 9.8 % (2.0-12.0); NEUTROPHILS # (AUTO) 2.6 K/uL (1.8-8.9); NEUTROPHILS % (AUTO) 52.6 % (43.0-81.0); PLATELET COUNT (AUTO) 155 K/uL (150-450); RED BLOOD CELL COUNT(AUTO) 3.33 MIL/uL (4.5-6.0)
[2022-08-24 06:47] LABS: CALCIUM, SERUM 9.1 mg/dL (8.5-10.1); MAGNESIUM 2.7 mg/dL (1.8-2.4); PHOSPHORUS 7.1 mg/dL (2.5-4.9)
[2022-08-24 07:00] VITALS: BP 99/46
[2022-08-24 07:28] LABS: CREATININE 7.8 mg/dL (0.6-1.3)
--- NOTE | 2022-08-24 07:29 | NUR ---
SENIOR DIRECTOR INSIGHT CLOSING NOTE PATIENT IS SLEEPING IN BED. EASILY BEING AROUSED. HE IS ALERT AND ORIENTED, AO X 4. HE IS ON RA, TOLERATED WELL. NO S/S OF SOB OR DISTRESS. PATIENT HAS IV ACCESS AT HIS R AC, #20G, SL; FLUSHED WITH 10 CC NS, PATENT AND INTACT. DIALYSIS ACCESS IS AT HIS L UA, AV FISTULA; PATENT AND INTACT. PATIENT IS ON EXTERNAL SIGN ERECTOR, ON THE MONITOR, HIS HEART RHYTHM IS SR, AND HR IS AROUND 70S. PATIENT IS ON NPO AFTER MIDNIGHT FOR XR FISTULOGRAM SINUS TRACT; SURGICAL PACKAGE IS PRINTED OUT IN THE PT'S CHART. THERE IS NO SCHEDULED TIME YET. EDUCATED THE PATIENT FOR THE NPO, PT VERBALIZED UNDERSTANDING. SAFETY MEASURES ARE IN PLACE: BED IN LOWEST AND LOCKED POSITION; SIDE RAILS UP X 2; CALL LIGHT AND TABLE ARE WITHIN REACH. WILL ENDORSE THE NEXT SHIFT NURSE FOR CONTINUING PATIENT CARE.
--- NOTE | 2022-08-24 07:41 | NUR ---
EVENT SALES ASSISTANT OPENING NOTE PATIENT IS SLEEPING IN BED. EASILY BEING AROUSED. AO X 4. ON RA, TOLERATING WELL. NO S/S OF SOB OR DISTRESS. PATIENT HAS IV ACCESS AT HIS R AC, #20G, SL; FLUSHED WITH 10 CC NS, PATENT AND INTACT. DIALYSIS ACCESS IS AT HIS L UA, AV FISTULA; PATENT AND INTACT. PATIENT IS ON EXTERNAL SUPERVISOR MOTOR VEHICLE ASSEMBLY, ON THE MONITOR, HIS HEART RHYTHM IS SR, AND HR IS AROUND 70S. SAFETY MEASURES ARE IN PLACE: BED IN LOWEST AND LOCKED POSITION; SIDE RAILS UP X 2; CALL LIGHT AND TABLE ARE WITHIN REACH. WILL CONTINUE TO MONITOR.
[2022-08-24] MEDS: CALCIUM ACETATE 667 MG CAP/TAB PO SCH ×3 (08:00→17:40)
[2022-08-24] MEDS: SEVELAMER CARBONATE 800 MG TABLET PO SCH ×3 (08:00→17:40)
[2022-08-24] MEDS: CARVEDILOL 12.5 MG TABLET PO SCH ×2 (09:00→21:19)
--- NOTE | 2022-08-24 10:45 | NUR ---
RN NOTES PER [facility] OF RADIOLOGY DEPT, XR FISTULOGRAM SINUS TRACT WILL NOT HAPPEN TODAY. NOTIFIED HOSPITALIST BERRY. PATIENT BACK ON RENAL DIET PER AUTOMOTIVE FINANCE MANAGER ORDER.
[2022-08-24 12:00] VITALS: BP 115/70
[2022-08-24 16:00] VITALS: BP 118/72
--- NOTE | 2022-08-24 18:29 | NUR ---
GARAGE DOOR INSTALLER CLOSING NOTE PATIENT AWAKE IN BED AO X 4. ON RA, TOLERATING WELL. NO S/S OF SOB OR DISTRESS. PATIENT HAS IV ACCESS AT HIS R AC, #20G, SL; PATENT AND INTACT. DIALYSIS ACCESS IS AT HIS MANINDER, AV FISTULA; PATENT AND INTACT. PATIENT IS ON EXTERNAL CERTIFIED GENETIC COUNSELOR, ON THE MONITOR, HIS HEART RHYTHM IS SR, AND HR IS AROUND 70S. DIALYSIS DONE TODAY WITH 1500ML OUTPUT SAFETY MEASURES ARE IN PLACE: BED IN LOWEST AND LOCKED POSITION; SIDE RAILS UP X 2; CALL LIGHT AND TABLE ARE WITHIN REACH. WILL ENDORSE THE NEXT SHIFT NURSE FOR CONTINUING PATIENT CARE.
[2022-08-24 20:00] VITALS: BP 110/60
[2022-08-25] VITALS: BP 95/51
[2022-08-25 04:00] VITALS: BP 103/55
[2022-08-25 06:08] LABS: BASOPHILS % (AUTO) 0.4 % (0.0-2.0); EOSINOPHILS % (AUTO) 4.5 % (0.0-6.0); HEMATOCRIT 31 % (39-51); HEMOGLOBIN 10.3 g/dL (13.5-17.5); LYMPHOCYTES # (AUTO) 1.6 K/uL (0.8-4.8); LYMPHOCYTES % (AUTO) 31.3 % (20.0-44.0); MEAN CORPUSCULAR HGB CONC 34 g/dl (31.0-36.0); MEAN CORPUSCULAR VOLUME 94 fL (80-96); MONOCYTES # (AUTO) 0.5 K/uL (0.1-1.30); MONOCYTES % (AUTO) 9.2 % (2.0-12.0); NEUTROPHILS # (AUTO) 2.8 K/uL (1.8-8.9); NEUTROPHILS % (AUTO) 54.6 % (43.0-81.0); PLATELET COUNT (AUTO) 162 K/uL (150-450); RED BLOOD CELL COUNT(AUTO) 3.27 MIL/uL (4.5-6.0)
--- NOTE | 2022-08-25 06:11 | NUR ---
END OF SHIFT REPORT Patient in bed, Alert Oriented x4. Sinus rhythm HR 69 in the Tele monitor. Oxygen saturation high 90's. Observed no sob with ambulation, denies chest pain. Dialysis treatment as scheduled. MANINDER AV shunt no bleeding. Denies numbness, tingling sensation in hands an feet. Potassium level improving. Plan for Fistulogram. Will endorse to oncoming RN.
[2022-08-25 06:39] LABS: MAGNESIUM 2.6 mg/dL (1.8-2.4); PHOSPHORUS 7.8 mg/dL (2.5-4.9); POTASSIUM 4.8 mmol/L (3.5-5.1)
[2022-08-25 07:00] VITALS: BP 109/70
[2022-08-25] MEDS: ENOXAPARIN SODIUM 30 MG/0.3 ML DISP.SYRIN SQ SCH (07:02)
[2022-08-25 07:12] LABS: CREATININE 8.2 mg/dL (0.6-1.3)
--- NOTE | 2022-08-25 08:02 | NUR ---
RN OPENING NOTE RECEIVED PATIENT SLEEPING IN THE BED, AO X 4. ABLE TO RESPONDS ALL STIMULI. RESPIRATORY EVEN AND UNLABORED IN ROOM AIR. IN NO RESPIRATORY DISTRESS OBSERVED. SKIN IS WARM TO TOUCH, KEEP CLEAN/DRY. KEPT ELEVATED HOB FOR ASPIRATION PRECAUTION/ENSURE AIRWAY, ALSO LOWEST BED POSITIONED. BED ALARM IS ON AT ALL THE TIME FOR SAFETY. CALL LIGHT WITHIN REACH, WILL CONTINUE TO MONITOR. PATIENT IS ON HD, RECEIVED CRITICAL CREATININE LEVEL: 8.2, WILL DOCUMENT IN THE INTERVENTION.
[2022-08-25] MEDS: CALCIUM ACETATE 667 MG CAP/TAB PO SCH ×3 (08:14→17:19)
[2022-08-25] MEDS: SEVELAMER CARBONATE 800 MG TABLET PO SCH ×3 (08:15→17:19)
[2022-08-25] MEDS: CARVEDILOL 12.5 MG TABLET PO SCH ×2 (08:16→20:51)
[2022-08-25 12:00] VITALS: BP 106/51
--- NOTE | 2022-08-25 12:42 | NUR ---
PATIENT REFUSED HD TODAY, INFORMED .
--- NOTE | 2022-08-25 17:12 | NUR ---
PATIENT SIGNED ON CONSENT FOR FISTULOGRAM. WILL BE NPO AFTER [place] TONIGHT, INFORMED ABOVE AND PATIENT AGREED.
--- NOTE | 2022-08-25 18:24 | NUR ---
RN CLOSING NOTE PATIENT RESTING IN BED. IN NO ACUTE DISTRESS OBSERVED. RESPIRATORY EVEN AND UNLABORED IN ROOM AIR. IN NO RESPIRATORY DISTRESS NOTED. POTASSIUM LEVEL IS STABLE:4.8 TODAY. SKIN IS WARM TO TOUCH KEEP CLEAN/DRY. PATIENT WILL BE NPO AFTER MIDNIGHT FOR FISTULOGRAM, AND MENTIONED PATIENT. KEPT ELEVATED HOB FOR ENSURE AIRWAY/ASPIRATION PRECAUTION, AND LOWEST BED POSITION. BED ALARM IS ON AT ALL THE TIME FOR SAFETY. CALL LIGHT WITHIN REACH, WILL ENDORSE RN NEUROSURGICAL.
--- NOTE | 2022-08-25 19:15 | NUR ---
REFERENCE TEST CLERK OPENING NOTES RECEIVED PT SITTING IN BED, USING HIS PHONE AT THIS TIME. A/O X4, ABLE TO MAKE NEEDS KNOWN. ON RA WITH NO ACUTE DISTRESS OBSERVED. RESPIRATORY EVEN AND UNLABORED. ON TELE MONITOR READING SR 65 BPM. IV ACCESS RAC #20G SL, PATENT AND INTACT. L UPPER ARM AV SHUNT NOTED, INTACT. REPEATED TO PATIENT THAT HE WILL BE NPO AFTER MIDNIGHT FOR FISTULOGRAM TOMORROW. PT VERBALIZED UNDERSTANDING. SAFETY PRECAUTIONS IN PLACE: AND LOWEST BED POSITION, SIDE RAILS UP X3, CALL LIGHT AND TRAY TABLE WITHIN REACH. WILL CONTINUE TO MONITOR AND ASSIST.
[2022-08-25 20:18] VITALS: BP 128/68
[2022-08-26 00:19] VITALS: BP 105/57
[2022-08-26 04:03] VITALS: BP 105/57
[2022-08-26] MEDS: ENOXAPARIN SODIUM 30 MG/0.3 ML DISP.SYRIN SQ SCH (06:00)
[2022-08-26 06:19] LABS: CALCIUM, SERUM 8.9 mg/dL (8.5-10.1); MAGNESIUM 2.8 mg/dL (1.8-2.4); POTASSIUM 5.3 mmol/L (3.5-5.1)
--- NOTE | 2022-08-26 06:21 | NUR ---
RN NOTES LOVENOX NON-ADMIN DUE TO SCHEDULED FISTULOGRAM FOR TODAY. CONSULTED WITH RADIOLOGY.
[2022-08-26 06:50] LABS: CREATININE 10.8 mg/dL (0.6-1.3)
[2022-08-26 06:51] LABS: PHOSPHORUS 8.2 mg/dL (2.5-4.9)
--- NOTE | 2022-08-26 06:58 | NUR ---
RN NOTES CRITICAL LAB VALUE REPORT: PHOSPHORUS 8.9. ENDORSED TO DAY SHIFT NURSE FOR MD REPORT.
[2022-08-26 06:59] LABS: BASOPHILS % (AUTO) 0.3 % (0.0-2.0); EOSINOPHILS % (AUTO) 4.7 % (0.0-6.0); HEMATOCRIT 30 % (39-51); LYMPHOCYTES # (AUTO) 1.5 K/uL (0.8-4.8); LYMPHOCYTES % (AUTO) 31.8 % (20.0-44.0); MEAN CORPUSCULAR HGB CONC 33 g/dl (31.0-36.0); MEAN CORPUSCULAR VOLUME 95 fL (80-96); MONOCYTES # (AUTO) 0.4 K/uL (0.1-1.30); MONOCYTES % (AUTO) 9.3 % (2.0-12.0); NEUTROPHILS # (AUTO) 2.5 K/uL (1.8-8.9); NEUTROPHILS % (AUTO) 53.9 % (43.0-81.0); PLATELET COUNT (AUTO) 153 K/uL (150-450); RED BLOOD CELL COUNT(AUTO) 3.15 MIL/uL (4.5-6.0); WHITE BLOOD COUNT (AUTO) 4.7 K/uL (4.3-11.0)
--- NOTE | 2022-08-26 07:00 | NUR ---
BAG SEALER CLOSING NOTES PT AWAKE IN BED AT THIS TIME. A/O X4, ABLE TO MAKE NEEDS KNOWN. STABLE ON RA WITH NO ACUTE DISTRESS OBSERVED. RESPIRATORY EVEN AND UNLABORED. ON TELE MONITOR READING SR, 65 BPM. IV ACCESS RAC #20G SL, PATENT AND INTACT. L UPPER ARM AV SHUNT NOTED, INTACT. NPO AT MIDNIGHT FOR FISTULOGRAM TODAY. ALL CARE PROVIDED AND MEDS TOLERATED WELL. SAFETY PRECAUTIONS MAINTAINED: BED LOCKED AND LOWEST BED POSITION, SIDE RAILS UP X3, CALL LIGHT AND TRAY TABLE WITHIN REACH. WILL ENDORSE ERIC TO DAY SHIFT NURSE.
--- NOTE | 2022-08-26 07:48 | NUR ---
COSMETIC SURGEON OPENING NOTES RECEIVED PT SLEEPING IN BED, EASILY AROUSED. A/O X4, ABLE TO MAKE NEEDS KNOWN. ON RA WITH NO ACUTE DISTRESS OBSERVED. RESPIRATORY EVEN AND UNLABORED. ON TELE MONITOR READING SR, HR ON 60'S BPM. IV ACCESS RAC #20G SL, PATENT AND INTACT. L UPPER ARM AV SHUNT NOTED, INTACT. MAINTAINED ON NPO FOR FISTULOGRAM TODAY. SAFETY PRECAUTIONS IN PLACE: AND LOWEST BED POSITION, SIDE RAILS UP X3, CALL LIGHT AND TRAY TABLE WITHIN REACH. WILL CONTINUE TO MONITOR AND ASSIST.
[2022-08-26 08:00] VITALS: BP 110/56
[2022-08-26] MEDS: SEVELAMER CARBONATE 800 MG TABLET PO SCH ×3 (08:00→17:18)
[2022-08-26] MEDS: CALCIUM ACETATE 667 MG CAP/TAB PO SCH ×3 (08:00→17:18)
[2022-08-26] MEDS: CARVEDILOL 12.5 MG TABLET PO SCH ×3 (09:00→20:42)
--- NOTE | 2022-08-26 10:38 | NUR ---
SPOKE TO RADIOLOGIST, HE STATED THAT THOSE PROCEDURES ARE USUALLY DONE IN A CATHLAB, WHICH WE DO NOT HAVE. HE ALSO STATED THAT THE VASCULAR SURGERY SOMETIMES WILL DO THOSE IN SURGERY IF PROPER EQUIPMENT IS AVAILABLE.
[2022-08-26 12:00] VITALS: BP 127/68
[2022-08-26 16:00] VITALS: BP 104/58
--- NOTE | 2022-08-26 18:36 | NUR ---
DOT COMPLIANCE MANAGER CLOSING NOTES PT AWAKE IN BED,A/O X4, ABLE TO MAKE NEEDS KNOWN. ON RA WITH NO ACUTE DISTRESS OBSERVED. RESPIRATORY EVEN AND UNLABORED. ON TELE MONITOR READING SR, HR ON 80'S BPM. IV ACCESS RAC #20G SL, PATENT AND INTACT. L UPPER ARM AV SHUNT NOTED, INTACT. FISTULOGRAM WAS CANCELLED TODAY, WILL BE ON FRIDAY MORNING. SAFETY PRECAUTIONS IN PLACE: AND LOWEST BED POSITION, SIDE RAILS UP X3, CALL LIGHT AND TRAY TABLE WITHIN REACH. ENDORSED TO INCOMING NURSE FOR ERIC.
--- NOTE | 2022-08-26 19:53 | NUR ---
RN OPENING NOTES RECEIVED PT IN BED, AWAKE, AMBULATING AROUND ROOM. DIALYSIS MACHINE BEING SET UP AT BEDTIME. AOx4, ABLE TO MAKE NEEDS KNOWN. ON RA AND TOLERATING WELL. NO SOB NOTED. NO S/SX OF RESPIRATORY DISTRESS NOTED. IV ACCESS IN RAC #20G AND MANINDER AV FISTULA. IV IS INTACT, PATENT, AND FLUSHING WELL. SAFETY PRECAUTIONS IN PLACE: BED IN LOWEST, LOCKED POSITION, SIDERAILS UPx2, AND BRAKES ON. TABLE AND CALL LIGHT WITHIN REACH. ALL NEEDS MET AT THIS TIME.
[2022-08-26 20:00] VITALS: BP_SYST 107; BP_SYST 117; BP_DIAS 53; BP_DIAS 68
--- NOTE | 2022-08-26 23:36 | NUR ---
RN NOTES DIALYSIS ENDED. PT TOLERATED WELL. 2 LITERS REMOVED PER HD NURSE.
[2022-08-27] VITALS: BP 97/57
[2022-08-27] MEDS: diphenhydrAMINE HCL 25 MG CAPSULE PO PRN ×2 (02:26→22:23)
[2022-08-27 04:00] VITALS: BP 120/88
[2022-08-27] MEDS: ENOXAPARIN SODIUM 30 MG/0.3 ML DISP.SYRIN SQ SCH (06:22)
[2022-08-27 06:29] LABS: CALCIUM, SERUM 9.4 mg/dL (8.5-10.1); MAGNESIUM 2.7 mg/dL (1.8-2.4); PHOSPHORUS 6.6 mg/dL (2.5-4.9); POTASSIUM 4.4 mmol/L (3.5-5.1)
[2022-08-27 06:33] LABS: CREATININE 7.7 mg/dL (0.6-1.3)
[2022-08-27 06:42] LABS: BASOPHILS % (AUTO) 0.2 % (0.0-2.0); EOSINOPHILS % (AUTO) 3.9 % (0.0-6.0); HEMATOCRIT 31 % (39-51); HEMOGLOBIN 10.6 g/dL (13.5-17.5); LYMPHOCYTES # (AUTO) 1.3 K/uL (0.8-4.8); LYMPHOCYTES % (AUTO) 24.3 % (20.0-44.0); MEAN CORPUSCULAR HGB CONC 34 g/dl (31.0-36.0); MEAN CORPUSCULAR VOLUME 94 fL (80-96); MONOCYTES # (AUTO) 0.5 K/uL (0.1-1.30); MONOCYTES % (AUTO) 10.3 % (2.0-12.0); NEUTROPHILS # (AUTO) 3.2 K/uL (1.8-8.9); NEUTROPHILS % (AUTO) 61.3 % (43.0-81.0); PLATELET COUNT (AUTO) 164 K/uL (150-450); RED BLOOD CELL COUNT(AUTO) 3.29 MIL/uL (4.5-6.0); WHITE BLOOD COUNT (AUTO) 5.2 K/uL (4.3-11.0)
--- NOTE | 2022-08-27 06:43 | NUR ---
RN CLOSING NOTES PT IN BED, ASLEEP, AWAKENS TO VERBAL STIMULI. AOx4, ABLE TO MAKE NEEDS KNOWN. ON RA AND TOLERATING WELL. NO SOB NOTED. NO S/SX OF RESPIRATORY DISTRESS NOTED. IV ACCESS IN RAC #20G AND MANINDER AV FISTULA. IV IS INTACT, PATENT, AND FLUSHING WELL. ALL ORDERS CARRIED OUT. ALL NEEDS MET. PT KEPT CLEAN AND DRY. SAFETY PRECAUTIONS IN PLACE: BED IN LOWEST, LOCKED POSITION, SIDERAILS UPx2, AND BRAKES ON. TABLE AND CALL LIGHT WITHIN REACH. WILL ENDORSE TO ONCOMING SHIFT FOR ERIC.
--- NOTE | 2022-08-27 07:35 | NUR ---
RECONCILIATION MACHINE OPERATOR OPENING NOTES RECEIVED PT SLEEPING IN BED, EASILY AROUSED. A/O X4, ABLE TO MAKE NEEDS KNOWN. ON RA WITH NO ACUTE DISTRESS OBSERVED. RESPIRATORY EVEN AND NONLABORED. ON TELE MONITOR READING SR. IV ACCESS RAC #20G SL, PATENT AND INTACT. L UPPER ARM AV SHUNT NOTED, INTACT. SAFETY PRECAUTIONS IN PLACE: BED IN LOCKED AND LOWEST POSITION, SIDE RAILS UP X2, CALL LIGHT AND TRAY TABLE WITHIN REACH. WILL CONTINUE TO MONITOR AND ASSIST.
[2022-08-27 08:00] VITALS: BP 101/46
[2022-08-27] MEDS: CALCIUM ACETATE 667 MG CAP/TAB PO SCH ×3 (09:00→17:10)
[2022-08-27] MEDS: CARVEDILOL 12.5 MG TABLET PO SCH ×2 (09:00→21:01)
[2022-08-27] MEDS: SEVELAMER CARBONATE 800 MG TABLET PO SCH ×3 (09:01→17:10)
[2022-08-27 12:00] VITALS: BP 116/59
[2022-08-27 16:00] VITALS: BP 113/67
--- NOTE | 2022-08-27 18:40 | NUR ---
LAYOUT ARTIST CLOSING NOTES PT AWAKE IN BED,A/O X4, ABLE TO MAKE NEEDS KNOWN. ON RA WITH NO ACUTE DISTRESS OBSERVED. RESPIRATORY EVEN AND UNLABORED. ON TELE MONITOR READING SR, HR AT 80S BPM. IV ACCESS RAC #20G SL, PATENT AND INTACT. L UPPER ARM AV SHUNT NOTED, INTACT. HD DONE TODAY AND 2L OUT. SAFETY PRECAUTIONS IN PLACE: AND LOWEST BED POSITION, SIDE RAILS UP X3, CALL LIGHT AND TRAY TABLE WITHIN REACH. ENDORSED TO INCOMING NURSE FOR ERIC.
--- NOTE | 2022-08-27 19:45 | NUR ---
RN OPENING NOTES PT IN BED, AWAKE, TALKING ON PHONE. AOx4, ABLE TO MAKE NEEDS KNOWN. ON RA AND TOLERATING WELL. NO SOB NOTED. NO S/SX OF RESPIRATORY DISTRESS NOTED. IV ACCESS IN RAC #20G AND MANINDER AV FISTULA. IV IS INTACT, PATENT, AND FLUSHING WELL. SAFETY PRECAUTIONS IN PLACE: BED IN LOWEST, LOCKED POSITION, SIDERAILS UPx2, AND BRAKES ON. TABLE AND CALL LIGHT WITHIN REACH. ALL NEEDS MET AT THIS TIME.
[2022-08-27 20:50] VITALS: BP 126/75
[2022-08-28 00:03] VITALS: BP 93/50
[2022-08-28 04:23] VITALS: BP 84/38
--- NOTE | 2022-08-28 04:56 | NUR ---
RN NOTES REASSESSED 0400 VITALS DUE TO HYPOTENSION (84/38) AND GOT BLOOD PRESSURE OF 102/58 AND PULSE OF 67. PT IS ASYMPTOMATIC. AOx4, NO COMPLAINTS AT THIS TIME.
[2022-08-28] MEDS: ENOXAPARIN SODIUM 30 MG/0.3 ML DISP.SYRIN SQ SCH (06:00)
--- NOTE | 2022-08-28 06:24 | NUR ---
RN NOTES DID NOT ADMINISTER LOVENOX SINCE PATIENT IS AMBULATORY AND VTE SCORE IS 1. CHARGE NURSE, BENNY BOLAND.
[2022-08-28 07:01] LABS: CALCIUM, SERUM 9.4 mg/dL (8.5-10.1); MAGNESIUM 2.7 mg/dL (1.8-2.4); PHOSPHORUS 6.8 mg/dL (2.5-4.9); POTASSIUM 4.7 mmol/L (3.5-5.1)
[2022-08-28 07:15] LABS: CREATININE 7.5 mg/dL (0.6-1.3)
--- NOTE | 2022-08-28 07:40 | NUR ---
PACKING HOUSE LABORER OPENING NOTES RECEIVED PT AWAKE IN BED. A/O X4, ABLE TO MAKE NEEDS KNOWN. ON RA WITH NO ACUTE DISTRESS OBSERVED. RESPIRATORY EVEN AND NONLABORED. ON TELE MONITOR READING SR. IV ACCESS RAC #20G SL, PATENT AND INTACT. L UPPER ARM AV SHUNT NOTED, INTACT. SAFETY PRECAUTIONS IN PLACE: BED IN LOCKED AND LOWEST POSITION, SIDE RAILS UP X2, CALL LIGHT AND TRAY TABLE WITHIN REACH. WILL CONTINUE TO MONITOR AND ASSIST.
[2022-08-28 08:07] VITALS: BP 99/59
[2022-08-28] MEDS: CALCIUM ACETATE 667 MG CAP/TAB PO SCH ×3 (08:13→17:06)
[2022-08-28] MEDS: SEVELAMER CARBONATE 800 MG TABLET PO SCH ×3 (08:13→17:06)
[2022-08-28] MEDS: CARVEDILOL 12.5 MG TABLET PO SCH ×2 (09:00→21:00)
[2022-08-28 16:01] VITALS: BP 109/67
[2022-08-28 20:00] VITALS: BP 107/54
[2022-08-28] MEDS: diphenhydrAMINE HCL 25 MG CAPSULE PO PRN (22:43)
[2022-08-29] VITALS: BP 108/50
[2022-08-29 05:00] VITALS: BP 96/76
[2022-08-29] MEDS: ENOXAPARIN SODIUM 30 MG/0.3 ML DISP.SYRIN SQ SCH (06:00)
--- NOTE | 2022-08-29 06:50 | NUR ---
FINISH MACHINE TENDER CLOSING NOTES PT ASLEEP IN BED EASILY BEING AROUSED. A/O X4, ABLE TO MAKE NEEDS KNOWN. ON RA WITH NO ACUTE DISTRESS OBSERVED. RESPIRATORY EVEN AND UNLABORED. ON TELE MONITOR READING SR, HR AT 92 BPM. IV ACCESS RAC #20G SL, PATENT AND INTACT. L UPPER ARM AV SHUNT NOTED, INTACT. PT KEPT NPO SINCE MIDNIGHT. SAFETY PRECAUTIONS IN PLACE: BED IN LOWEST AND LOCKED POSITION, SIDE RAILS UP X2, CALL LIGHT AND TRAY TABLE WITHIN REACH. WILL ENDORSE TO INCOMING NURSE FOR ERIC.
[2022-08-29 07:03] LABS: CALCIUM, SERUM 9.4 mg/dL (8.5-10.1); POTASSIUM 4.7 mmol/L (3.5-5.1)
[2022-08-29 07:11] LABS: CREATININE 7.5 mg/dL (0.6-1.3)
--- NOTE | 2022-08-29 07:30 | NUR ---
CORE EXTRUDER OPENING NOTES RECEIVED PATIENT ON BED AWAKE AND A/O X4. ON ROOM AIR TOLERATING WELL. NO SOB NOTED. NOT IN DISTRESS. WITH NO COMPLAINTS OF PAIN OR DISCOMFORT AT THIS TIME. WITH IV ACCESS AT THE RIGHT AC G20 SALINE LOCKED, PATENT AND INTACT. ON TELE MONITOR CURRENTLY READING SINUS RHYTHM AT 69BPM. ON NPO FOR FISTULOGRAM THIS AM. SAFETY MEASURES IN PLACED. CALL LIGHT WITHIN REACH. BED ON LOWEST LOCKED POSITION, SIDE RAILS UP X2. WILL CONTINUE TO MONITOR.
[2022-08-29] MEDS ORDERED: IODIXANOL 320MG/ML 100 ML IV ONE (07:42)
[2022-08-29] MEDS ORDERED: LIDOCAINE 1% INJ 50 ML MDV IJ ONE (07:42)
[2022-08-29 08:00] VITALS: BP 112/67
--- NOTE | 2022-08-29 09:00 | NUR ---
RN NOTE PATIENT CAME BACK FROM OR. PATIENT IS AWAKE AND A/O X4. ON ROOM AIR SATURATING WELL. TO RESUME HIS DIET. WITH STABLE VITAL SIGNS. WILL MONITOR.
[2022-08-29] MEDS: CALCIUM ACETATE 667 MG CAP/TAB PO SCH ×2 (09:17→13:18)
[2022-08-29] MEDS: SEVELAMER CARBONATE 800 MG TABLET PO SCH ×2 (09:17→13:18)
[2022-08-29] MEDS: CARVEDILOL 12.5 MG TABLET PO SCH (09:17)
--- NOTE | 2022-08-29 14:15 | NUR ---
FACSIMILE MACHINE OPERATOR NOTES PATIENT WAS SEEN BY DR. BERNABE AND ORDERED PATIENT FOR DISCHARGE. FOR DISCHARGE TO HOME. DISCHARGE AND MEDICATION INSTRUCTIONS PROVIDED. PATIENT VERBALIZED UNDERSTANDING AND SIGNED DISCHARGE FORM AND BELONGINGS LIST FORM. REMOVED IV LINE AND NAME WRIST BAND. ACCOMPANIED PATIENT TO THE LOBBY VIA WHEELCHAIR IN STABLE CONDITION AND LEFT IN STABLE CONDITION WITH HIS MOM VIA PRIVATE CAR. MD AND CHARGE NURSE ARE AWARE OF THE DISCHARGE.
[2022-08-29 15:55] VITALS: BP 107/47
== END 2022-08-29 15:05 | disposition home or self-care (01) | DRG 640 ==
LOC: ER 20:13 → TRANSITION 08-19 05:10 → TELE 08-19 07:58
PROVIDERS: ADMIT Nurse Practitioner Acute Care; ATTEND Internal Medicine
PROC: 5A1D70Z Performance of Urinary Filtration, Intermittent, Less than 6 Hours Per Day (ICD-10-PCS; principal; 2022-08-19)
PROC: B51WYZZ Fluoroscopy of Dialysis Shunt/Fistula using Other Contrast (ICD-10-PCS; 2022-08-29)
PROC: B51VYZZ Fluoroscopy of Other Veins using Other Contrast (ICD-10-PCS; 2022-08-29)
DX: E87.5 Hyperkalemia (principal); N18.6 End stage renal disease; I12.0 Hypertensive chronic kidney disease with stage 5 chronic kidney disease or end stage renal disease; D68.59 Other primary thrombophilia; Z99.2 Dependence on renal dialysis; Z20.822 Contact with and (suspected) exposure to COVID-19; Z90.5 Acquired absence of kidney; Z90.49 Acquired absence of other specified parts of digestive tract; Z90.79 Acquired absence of other genital organ(s); Z79.899 Other long term (current) drug therapy; M89.8X9 Other specified disorders of bone, unspecified site; D63.8 Anemia in other chronic diseases classified elsewhere; E83.39 Other disorders of phosphorus metabolism; E66.01 Morbid (severe) obesity due to excess calories; Z68.33 Body mass index [BMI] 33.0-33.9, adult; I25.10 Atherosclerotic heart disease of native coronary artery without angina pectoris
CPT/HCPCS: 36415; 71045-TC; 80048-TC; 80053-TC; 83735-TC; 84100-TC; 84132-TC; 84484-TC; 85025-TC; 86706; 87081-TC; 87340; 90935-TC; 93307-TC; C9803; G0378; J0610; J1644; J1650; J1815; J2405; J3490; J7030; J7042; Q0163; Q9967

== ENCOUNTER 2022-12-05 07:17 | Inpatient (IN) | payer MEDICARE, OTHER ==
[~2022-12-05] VITALS: Ht 167.6 cm; Wt 78.6 kg
--- NOTE | 2022-12-05 07:17 | NUR ---
TO ER BED 9. BIBS C/O DIFFUSE ABDOMINAL PAIN SINCE 0000 THIS MORNING, PAIN IS 7/10 ON PAIN SCALE. PT UNABLE TO PROVIDE URINE SAMPLE, PT IS A DIALYSIS PT, HAS ACCESS ON L UPPER ARM. AWAITING MD BERMUDEZ.
[2022-12-05] MEDS ORDERED: DIATR MEGLU/DIATRIZOATE SODIUM 30 ML BOTTLE (GASTROGRAPHIN) ONE (07:48)
--- NOTE | 2022-12-05 07:48 | NUR ---
IV ESTABLISHED. 20G RAC
--- NOTE | 2022-12-05 07:48 | NUR ---
BLOOD DRAWN AND SENT TO LAB
[2022-12-05] MEDS ORDERED: ONDANSETRON HCL/PF 4 MG/2 ML VIAL ONE (07:51)
[2022-12-05 07:56] LABS: BASOPHILS % (AUTO) 0.3 % (0.0-2.0); EOSINOPHILS % (AUTO) 2.7 % (0.0-6.0); HEMATOCRIT 36 % (39-51); HEMOGLOBIN 11.7 g/dL (13.5-17.5); LYMPHOCYTES # (AUTO) 1.2 K/uL (0.8-4.8); LYMPHOCYTES % (AUTO) 23.6 % (20.0-44.0); MEAN CORPUSCULAR HGB CONC 32 g/dl (31.0-36.0); MEAN CORPUSCULAR VOLUME 96 fL (80-96); MONOCYTES # (AUTO) 0.5 K/uL (0.1-1.30); MONOCYTES % (AUTO) 9.5 % (2.0-12.0); NEUTROPHILS # (AUTO) 3.1 K/uL (1.8-8.9); NEUTROPHILS % (AUTO) 63.9 % (43.0-81.0); PLATELET COUNT (AUTO) 174 K/uL (150-450); RED BLOOD CELL COUNT(AUTO) 3.77 MIL/uL (4.5-6.0); WHITE BLOOD COUNT (AUTO) 4.9 K/uL (4.3-11.0)
[2022-12-05] MEDS ORDERED: DIATR MEGLU/DIATRIZOATE SODIUM 30 ML BOTTLE (GASTROGRAPHIN) PO ONE (08:00)
[2022-12-05] MEDS ORDERED: ONDANSETRON HCL/PF - ER 4 MG/2 ML VIAL IV ONE (08:00)
[2022-12-05 08:03] LABS: CALCIUM, SERUM 11.1 mg/dL (8.5-10.1); CREATININE 4.7 mg/dL (0.6-1.3); POTASSIUM 4.6 mmol/L (3.5-5.1)
[2022-12-05] MEDS ORDERED: KETOROLAC TROMETHAMINE INJ 30 MG/ML VIAL ONE (08:05)
[2022-12-05 08:10] LABS: ALBUMIN 4.2 g/dL (3.4-5.0); BILIRUBIN,DIRECT 0.1 mg/dL (0.0-0.2); BILIRUBIN,TOTAL 0.6 mg/dL (0.2-1.0)
[2022-12-05] MEDS ORDERED: KETOROLAC TROMETHAMINE INJ 30 MG/ML VIAL IV ONE (08:30)
--- NOTE | 2022-12-05 08:32 | NUR ---
DR NAILS AT BEDSIDE
--- NOTE | 2022-12-05 09:37 | NUR ---
PATIENT [facility]URNING [facility]
--- NOTE | 2022-12-05 10:34 | NUR ---
COVID SWAB COLLECTED AND SENT TO LAB
--- NOTE | 2022-12-05 11:53 | NUR ---
BED GIVEN 328-1
--- NOTE | 2022-12-05 12:10 | NUR ---
REPORT GIVEN TO CRYSTAL FOR ERIC
[2022-12-05] MEDS ORDERED: CINA30TA2 PO (12:54)
[2022-12-05] MEDS ORDERED: DOCU-141 PO (12:54)
[2022-12-05] MEDS ORDERED: ACETAMINOPHEN 325 MG TABLET PO PRN (13:00)
[2022-12-05] MEDS ORDERED: ONDANSETRON HCL/PF 4 MG/2 ML VIAL IVP PRN (13:00)
[2022-12-05 13:15] VITALS: BP 124/71
--- NOTE | 2022-12-05 13:15 | NUR ---
MS RN NOTES RECEIVED PATIENT FROM ER VIA STRETCHER ENDORSED BY HORACIO TIPTON. PATIENT IS AWAKE, AMBULATORY AND A/O X4. ON ROOM AIR TOLERATING WELL. NO SOB NOTED. NOT IN DISTRESS. WITH IV ACCESS AT THE RIGHT AC G20 SALINE LOCKED, PATENT AND INTACT. WITH LEFT FA FISTULA FOR HD. PATIENT WITH COMPLAINTS OF PAIN AT THE MID EPIGASTRIC PAIN AT THE SCALE OF 7/10. HOSPITALIST AWARE ABOUT PATIENT'S PAIN. PATIENT STATING ABLE TO TOLERATE PAIN AT THIS TIME NOT NEEDING MORPHINE IV FOR PAIN. SAFETY MEASURES IN PLACED. CALL LIGHT WITHIN REACH. BED ON LOWEST LOCKED POSITION, SIDE RAILS UP X2. WILL CONTINUE TO MONITOR.
[2022-12-05] MEDS ORDERED: MORPHINE SULFATE INJ 2 MG/ML DISP.SYRIN IV PRN (14:30)
[2022-12-05 16:52] VITALS: BP 122/72
--- NOTE | 2022-12-05 19:25 | NUR ---
MS RN CLOSING NOTES PATIENT APPEARS TO BE CALM RESTING ON BED AND A/O X4. ON ROOM AIR TOLERATING WELL. NO SOB NOTED. NOT IN DISTRESS. WITH IV ACCESS AT THE RIGHT AC G20 SALINE LOCKED, PATENT AND INTACT. WITH LEFT FA FISTULA FOR HD. SAFETY MEASURES IN PLACED. CALL LIGHT WITHIN REACH. BED ON LOWEST LOCKED POSITION, SIDE RAILS UP X2. WILL ENDORSE TO NEXT SHIFT FOR ERIC.
[2022-12-05 20:00] VITALS: BP_SYST 118; BP_SYST 128; BP_DIAS 66
--- NOTE | 2022-12-06 05:55 | NUR ---
CLOSING NOTES: A/OR X4 ABD WITH AUDIBLE BS NPO ORDERED NO C/O PAIN THIS 12 HOURS SCD'S SQL SERVER DBA DEVELOPER LIGHT WITHIN REACH
[2022-12-06 06:26] LABS: BASOPHILS % (AUTO) 0.4 % (0.0-2.0); EOSINOPHILS % (AUTO) 3.9 % (0.0-6.0); HEMATOCRIT 35 % (39-51); HEMOGLOBIN 11.2 g/dL (13.5-17.5); LYMPHOCYTES # (AUTO) 1.4 K/uL (0.8-4.8); LYMPHOCYTES % (AUTO) 26.4 % (20.0-44.0); MEAN CORPUSCULAR HGB CONC 32 g/dl (31.0-36.0); MEAN CORPUSCULAR VOLUME 97 fL (80-96); MONOCYTES # (AUTO) 0.6 K/uL (0.1-1.30); MONOCYTES % (AUTO) 11.3 % (2.0-12.0); PLATELET COUNT (AUTO) 160 K/uL (150-450); RED BLOOD CELL COUNT(AUTO) 3.58 MIL/uL (4.5-6.0); WHITE BLOOD COUNT (AUTO) 5.1 K/uL (4.3-11.0)
[2022-12-06 06:51] LABS: CALCIUM, SERUM 9.9 mg/dL (8.5-10.1); MAGNESIUM 2.7 mg/dL (1.8-2.4); PHOSPHORUS 7.9 mg/dL (2.5-4.9); POTASSIUM 6.1 mmol/L (3.5-5.1)
[2022-12-06 06:58] LABS: CREATININE 8.2 mg/dL (0.6-1.3)
--- NOTE | 2022-12-06 07:00 | NUR ---
MS RN OPENING NOTES: RECEIVED PATIENT ASLEEP BUT WAKES UP ON VERBAL STIMULI, NO COMPLAIN OF PAIN OR DISCOMFORT AT THIS TIME, A/OX4 ABLE TO MAKE NEEDS KNOWN, ON ROOM AIR SATURATING WELL, WITH RAC #20G SL AND LEFT UPPER ARM FISTULA FOR HD. BED IN LOW POSITION, CALL LIGHTS WITHIN REACH, WILL CONTINUE TO MONITOR THE PATIENT
[2022-12-06] MEDS: PANTOPRAZOLE 40 MG VIAL IV SCH (09:00)
[2022-12-06 09:50] VITALS: BP 112/68
[2022-12-06] MEDS: SODIUM POLYSTYRENE SULF. PWD 15 GM UDC PO SCH (13:06)
[2022-12-06 13:34] LABS: CALCIUM, SERUM 10.2 mg/dL (8.5-10.1)
[2022-12-06 13:55] LABS: CREATININE 9.5 mg/dL (0.6-1.3); POTASSIUM 6.9 mmol/L (3.5-5.1)
[2022-12-06] MEDS ORDERED: EPOETIN ALFA (4000 UNIT) 4,000 UNIT/ML VIAL IV SCH (15:00)
[2022-12-06 15:55] VITALS: BP 87/55
[2022-12-06] MEDS ORDERED: DIATR MEGLU/DIATRIZOATE SODIUM 120 ML BOTTLE (GASTROGRAPHIN) ONE (17:19)
--- NOTE | 2022-12-06 18:59 | NUR ---
MS RN CLOSING NOTES PATIENT APPEARS TO BE CALM RESTING ON BED AND A/O X4. ON ROOM AIR TOLERATING WELL. NO SOB NOTED. NOT IN DISTRESS. WITH IV ACCESS AT THE RIGHT AC G20 SALINE LOCKED, PATENT AND INTACT. WITH LEFT FA FISTULA FOR HD. PATIENT UNDERWENT HEMODIALYSIS EARLY THIS AFTERNOON TODAY. PATIENT REFUSED AN ORDER --XR SMALL BOWEL FOLLOW THROUGH. CHARGE NURSE AWARE. ORDERED CMP STAT. SAFETY MEASURES IN PLACED. CALL LIGHT WITHIN REACH. BED ON LOWEST LOCKED POSITION, SIDE RAILS UP X2. WILL BE ENDORSED TO NEXT SHIFT FOR ERIC.
--- NOTE | 2022-12-06 19:00 | NUR ---
patient states the Doctor said I can eat texted Guillermina Morales patient stated he refused the SBFT because he is having stool and passing gas made Guillermina Morales aware he is having no pain Renal diet okayed by Guillermina Morales ordered food served to the patient he states his stool are loose
[2022-12-06 20:23] LABS: CALCIUM, SERUM 10.8 mg/dL (8.5-10.1); CREATININE 6.9 mg/dL (0.6-1.3); POTASSIUM 4.7 mmol/L (3.5-5.1)
[2022-12-06 20:28] LABS: BILIRUBIN,TOTAL 0.8 mg/dL (0.2-1.0); TOTAL PROTEIN, SERUM 7.7 g/dL (6.4-8.2)
--- NOTE | 2022-12-07 05:15 | NUR ---
CLOSING NOTES: ALERT AND ORIENTATED X4 ABD ROUND SOFT BS+ FAINT SOUNDING PATIENT STATES HE IS PASSING GAS AND HAVING WATERY / LOOSE BMS TOLERATED DIET GIVEN TO HIM LAST NIGHT W/O N/V NO PAIN AMBULATES TO THE BATHROOM
[2022-12-07 06:40] LABS: BASOPHILS % (AUTO) 0.4 % (0.0-2.0); EOSINOPHILS % (AUTO) 4.7 % (0.0-6.0); HEMATOCRIT 37 % (39-51); HEMOGLOBIN 11.7 g/dL (13.5-17.5); LYMPHOCYTES # (AUTO) 1.4 K/uL (0.8-4.8); LYMPHOCYTES % (AUTO) 25.1 % (20.0-44.0); MEAN CORPUSCULAR HGB CONC 32 g/dl (31.0-36.0); MEAN CORPUSCULAR VOLUME 97 fL (80-96); MONOCYTES # (AUTO) 0.5 K/uL (0.1-1.30); MONOCYTES % (AUTO) 8.8 % (2.0-12.0); NEUTROPHILS # (AUTO) 3.5 K/uL (1.8-8.9); PLATELET COUNT (AUTO) 160 K/uL (150-450); RED BLOOD CELL COUNT(AUTO) 3.79 MIL/uL (4.5-6.0); WHITE BLOOD COUNT (AUTO) 5.7 K/uL (4.3-11.0)
[2022-12-07 06:58] LABS: CALCIUM, SERUM 10.1 mg/dL (8.5-10.1); MAGNESIUM 2.7 mg/dL (1.8-2.4); POTASSIUM 5.6 mmol/L (3.5-5.1)
[2022-12-07 06:59] LABS: CREATININE 8.3 mg/dL (0.6-1.3)
[2022-12-07 07:04] LABS: PHOSPHORUS 8.6 mg/dL (2.5-4.9)
--- NOTE | 2022-12-07 07:29 | NUR ---
MS RN OPENING NOTES: Received pt in bed, awake. A/O x 4, able to make needs known. No c/o pain/discomfort at this time. On room air, tolerating well. IV access in RAC #20g, sl. With fistula for hd in the left upper arm. Safety measures in place: bed in lowest locked position, call light and tray table within easy reach, side rails up x 2. Will continue to monitor.
[2022-12-07 08:00] VITALS: BP 97/57
[2022-12-07] MEDS: PANTOPRAZOLE 40 MG VIAL IV SCH (08:50)
[2022-12-07] MEDS: SODIUM POLYSTYRENE SULF. PWD 15 GM UDC PO SCH (09:00)
--- NOTE | 2022-12-07 09:51 | NUR ---
RN NOTES Sodium Pylysterene sulfate powder due at 0900 not give, patient verbalized he had watery stool. Will continue to monitor.
--- NOTE | 2022-12-07 15:43 | NUR ---
FINANCE ATTORNEY NOTES Patient discharged to home in stable condition, ambulatory. A/O x 4, no pain/discomfort at this time. On room air, tolerated well. Vital signs stable and recorded. S/p hd today, output 1000 ml. Discharged instructions given to patient, verbalized understanding. All belongings accounted for. Skin intact. IV access removed, clean and dry dressing applied to site. Patient left the unit at 1535 via wheelchair accompanied by relative and CELSO Terry. and Charge Nurse aware of d/c.
== END 2022-12-07 15:30 | disposition home or self-care (01) | DRG 388 ==
LOC: ER 07:25 → MED 12:18
PROVIDERS: ADMIT Nurse Practitioner Acute Care; ATTEND Internal Medicine
PROC: 5A1D70Z Performance of Urinary Filtration, Intermittent, Less than 6 Hours Per Day (ICD-10-PCS; principal; 2022-12-06)
DX: K56.51 Intestinal adhesions [bands], with partial obstruction (principal); N18.6 End stage renal disease; I12.0 Hypertensive chronic kidney disease with stage 5 chronic kidney disease or end stage renal disease; D68.59 Other primary thrombophilia; D63.1 Anemia in chronic kidney disease; E66.01 Morbid (severe) obesity due to excess calories; E87.5 Hyperkalemia; M89.8X9 Other specified disorders of bone, unspecified site; Z79.899 Other long term (current) drug therapy; Z90.5 Acquired absence of kidney; Z99.2 Dependence on renal dialysis; Z90.49 Acquired absence of other specified parts of digestive tract; M89.8X8 Other specified disorders of bone, other site; Z20.822 Contact with and (suspected) exposure to COVID-19
CPT/HCPCS: 36415; 80048-TC; 80053-TC; 80076-TC; 83690-TC; 83735-TC; 84100-TC; 85025-TC; 86706; 87081-TC; 87340; 90935-TC; C9113; C9803; G0378; J0885; J1885; J2405; J7030; Q9963

== ENCOUNTER 2023-01-28 07:41 | Emergency (ER) | payer MEDICARE, OTHER ==
[~2023-01-28] VITALS: Ht 165.1 cm; Wt 77.1 kg
[~2023-01-28 07:41] MED LIST changes: +CINA30TA2 PO; +DOCU-141 PO
--- NOTE | 2023-01-28 08:00 | NUR ---
PT CAME IN DUE TO A LOW HEMOGLOBIN PER HIS PMD. 7.5. HE'S BEEN A DIALYSIS FOR 10 YRS.
--- NOTE | 2023-01-28 08:06 | NUR ---
DR LLOYD AT BEDSIDE FOR EVAL
[2023-01-28 08:10] VITALS: TEMP 98.1
--- NOTE | 2023-01-28 08:15 | NUR ---
20 G INSERTED RAC, BLE DRAWN, SENT TO LAB
[2023-01-28 08:35] LABS: BASOPHILS % (AUTO) 0.6 % (0.0-2.0); EOSINOPHILS % (AUTO) 4.2 % (0.0-6.0); HEMATOCRIT 23 % (39-51); HEMOGLOBIN 7.7 g/dL (13.5-17.5); LYMPHOCYTES % (AUTO) 21.2 % (20.0-44.0); MEAN CORPUSCULAR HGB CONC 33 g/dl (31.0-36.0); MEAN CORPUSCULAR VOLUME 93 fL (80-96); MONOCYTES # (AUTO) 0.6 K/uL (0.1-1.30); MONOCYTES % (AUTO) 12.9 % (2.0-12.0); NEUTROPHILS # (AUTO) 2.9 K/uL (1.8-8.9); NEUTROPHILS % (AUTO) 61.1 % (43.0-81.0); PLATELET COUNT (AUTO) 169 K/uL (150-450); RED BLOOD CELL COUNT(AUTO) 2.51 MIL/uL (4.5-6.0); WHITE BLOOD COUNT (AUTO) 4.8 K/uL (4.3-11.0)
[2023-01-28 08:51] LABS: ALBUMIN 3.7 g/dL (3.4-5.0); BILIRUBIN,TOTAL 0.5 mg/dL (0.2-1.0); CALCIUM, SERUM 9.8 mg/dL (8.5-10.1); CREATININE 5.4 mg/dL (0.6-1.3); POTASSIUM 3.9 mmol/L (3.5-5.1); TOTAL PROTEIN, SERUM 7.3 g/dL (6.4-8.2)
[2023-01-28 10:17] VITALS: BP 152/84
--- NOTE | 2023-01-28 10:19 | NUR ---
Patient discharged to home in stable condition. Written and verbal after care instructions given. Patient verbalizes understanding of instruction.IV removed. Catheter intact and site benign. Pressure and 4x4 applied to site. No bleeding noted.
== END 2023-01-28 10:19 | disposition home or self-care (01) ==
LOC: ER 07:53
DX: I12.0 Hypertensive chronic kidney disease with stage 5 chronic kidney disease or end stage renal disease (principal); N18.6 End stage renal disease; R53.1 Weakness; Z98.890 Other specified postprocedural states; Z79.899 Other long term (current) drug therapy
CPT/HCPCS: 36415; 71045-TC; 80053-TC; 83880; 84484-TC; 85025-TC

== ENCOUNTER 2023-11-01 07:54 | Emergency (ER) | payer MEDICARE, OTHER ==
[~2023-11-01] VITALS: Ht 167.6 cm; Wt 78.7 kg
[~2023-11-01 07:54] MED LIST changes: +AMOX-430 PO; +LORA10TA7 PO
[2023-11-01] MEDS ORDERED: MORPHINE SULFATE INJ 4 MG/ML DISP.SYRIN ONE (10:16)
[2023-11-01] MEDS ORDERED: ONDANSETRON HCL/PF 4 MG/2 ML VIAL ONE (10:16)
[2023-11-01] MEDS: ONDANSETRON HCL/PF 4 MG/2 ML VIAL IVP ONE (10:20)
[2023-11-01] MEDS: MORPHINE SULFATE INJ 2 MG/ML DISP.SYRIN IV ONE (10:20)
[2023-11-01 10:22] LABS: BASOPHILS % (AUTO) 0.3 % (0.0-2.0); EOSINOPHILS # (AUTO) 0.1 K/uL (0.0-0.7); EOSINOPHILS % (AUTO) 2.5 % (0.0-6.0); HEMATOCRIT 32 % (39-51); HEMOGLOBIN 10.8 g/dL (13.5-17.5); LYMPHOCYTES # (AUTO) 0.8 K/uL (0.8-4.8); LYMPHOCYTES % (AUTO) 18.6 % (20.0-44.0); MEAN CORPUSCULAR HEMOGLOBIN 33 PG (26.0-33.0); MEAN CORPUSCULAR HGB CONC 33 g/dl (31.0-36.0); MEAN CORPUSCULAR VOLUME 98 fL (80-96); MONOCYTES # (AUTO) 0.4 K/uL (0.1-1.30); NEUTROPHILS % (AUTO) 69.6 % (43.0-81.0); PLATELET COUNT (AUTO) 170 K/uL (150-450); WHITE BLOOD COUNT (AUTO) 4.4 K/uL (4.3-11.0)
[2023-11-01 10:30] LABS: CALCIUM, SERUM 9.5 mg/dL (8.5-10.1); CREATININE 5.5 mg/dL (0.6-1.3); POTASSIUM 3.9 mmol/L (3.5-5.1)
[2023-11-01 10:45] LABS: ALBUMIN 3.6 g/dL (3.4-5.0); BILIRUBIN,DIRECT 0.1 mg/dL (0.0-0.2); BILIRUBIN,TOTAL 0.6 mg/dL (0.2-1.0); TOTAL PROTEIN, SERUM 7.5 g/dL (6.4-8.2)
[2023-11-01] MEDS ORDERED: HYDR-3973 PO (12:38)
[2023-11-01 13:02] VITALS: BP 110/63; TEMP 99.4; O2SAT 100
== END 2023-11-01 13:02 | disposition home or self-care (01) ==
LOC: ER 07:54
DX: R19.00 Intra-abdominal and pelvic swelling, mass and lump, unspecified site (principal); M99.84 Other biomechanical lesions of sacral region; R10.9 Unspecified abdominal pain; I12.0 Hypertensive chronic kidney disease with stage 5 chronic kidney disease or end stage renal disease; N18.6 End stage renal disease; Z99.2 Dependence on renal dialysis; Z90.89 Acquired absence of other organs; Z79.899 Other long term (current) drug therapy; Z85.51 Personal history of malignant neoplasm of bladder
CPT/HCPCS: 99285; 74176; 96374; 96375; 85025; 80048; 83690; 80076; 36415; J2270; J2405

== ENCOUNTER 2023-12-11 07:52 | Emergency (ER) | payer MEDICARE, OTHER ==
[~2023-12-11] VITALS: Ht 167.6 cm; Wt 78.5 kg
[~2023-12-11 07:52] MED LIST changes: +HYDR-3973 PO
[2023-12-11 08:07] VITALS: BP 139/69; TEMP 98.6
[2023-12-11] MEDS ORDERED: ERYT3.5O9 LEFTEYE (08:13)
[2023-12-11 08:23] VITALS: O2SAT 99
== END 2023-12-11 08:24 | disposition home or self-care (01) ==
LOC: ER 08:07
DX: H01.004 Unspecified blepharitis left upper eyelid (principal); H10.89 Other conjunctivitis; I13.10 Hypertensive heart and chronic kidney disease without heart failure, with stage 1 through stage 4 chronic kidney disease, or unspecified chronic kidney disease; N18.9 Chronic kidney disease, unspecified; Z90.5 Acquired absence of kidney; Z90.6 Acquired absence of other parts of urinary tract; Z90.79 Acquired absence of other genital organ(s); K56.609 Unspecified intestinal obstruction, unspecified as to partial versus complete obstruction; Z90.49 Acquired absence of other specified parts of digestive tract; Z86.79 Personal history of other diseases of the circulatory system

== ENCOUNTER 2024-02-17 03:38 | Inpatient (IN) | payer MEDICARE, OTHER ==
[~2024-02-17] VITALS: Ht 167.6 cm; Wt 77.1 kg
[~2024-02-17 03:38] MED LIST changes: +ERYT3.5O9 LEFTEYE
[2024-02-17] MEDS ORDERED: CLONIDINE HCL 0.1 MG TABLET ONE (04:32)
[2024-02-17] MEDS: CLONIDINE HCL 0.1 MG TABLET PO ONE (04:35)
[2024-02-17 04:37] LABS: BASOPHILS % (AUTO) 0.5 % (0.0-2.0); EOSINOPHILS # (AUTO) 0.2 K/uL (0.0-0.7); EOSINOPHILS % (AUTO) 3.1 % (0.0-6.0); HEMATOCRIT 26 % (39-51); HEMOGLOBIN 8.6 g/dL (13.5-17.5); LYMPHOCYTES # (AUTO) 0.9 K/uL (0.8-4.8); LYMPHOCYTES % (AUTO) 14.2 % (20.0-44.0); MEAN CORPUSCULAR HEMOGLOBIN 32 PG (26.0-33.0); MEAN CORPUSCULAR HGB CONC 33 g/dl (31.0-36.0); MEAN CORPUSCULAR VOLUME 96 fL (80-96); MONOCYTES # (AUTO) 0.5 K/uL (0.1-1.30); MONOCYTES % (AUTO) 8.2 % (2.0-12.0); NEUTROPHILS # (AUTO) 4.5 K/uL (1.8-8.9); PLATELET COUNT (AUTO) 162 K/uL (150-450); RED BLOOD CELL COUNT(AUTO) 2.67 MIL/uL (4.5-6.0); RED CELL DISTRIBUTION WIDTH 16.4 % (11.5-15.0)
[2024-02-17 04:45] LABS: CALCIUM, SERUM 9.6 mg/dL (8.5-10.1); CARBON DIOXIDE 19 mmol/L (21-32); CHLORIDE 100 mmol/L (98-107); GLUCOSE 101 mg/dL (74-106); SODIUM SERUM 140 mmol/L (136-145)
[2024-02-17 04:51] LABS: ALANINE AMINOTRANSFERASE 13 U/L (12-78); ALBUMIN 3.2 g/dL (3.4-5.0); ALKALINE PHOSPHATASE 826 U/L (46-116); BILIRUBIN,TOTAL 0.5 mg/dL (0.2-1.0); TOTAL PROTEIN, SERUM 6.5 g/dL (6.4-8.2)
[2024-02-17 04:52] LABS: CREATININE 12.8 mg/dL (0.6-1.3); POTASSIUM 7.1 mmol/L (3.5-5.1); UREA NITROGEN, BLOOD 118 mg/dL (7-18)
[2024-02-17 04:53] LABS: ASPARTATE AMINOTRANSFERASE < 6 U/L (15-37)
[2024-02-17 04:54] LABS: LACTIC ACID 1.2 mmol/L (0.4-2.0)
[2024-02-17] MEDS ORDERED: SODIUM POLYSTYRENE SULFONATE 15 G/60 ML BOTTLE ONE (05:10)
[2024-02-17] MEDS ORDERED: Calcium Gluconate 0.465 MEQ/ML VIAL IV ONE (05:10)
[2024-02-17] MEDS ORDERED: SODIUM BICARBONATE SYR 50 MEQ/50 ML DISP.SYRIN ONE (05:10)
[2024-02-17] MEDS ORDERED: DEXTROSE 50%-WATER 50 ML DISP.SYRIN ONE (05:11)
[2024-02-17] MEDS ORDERED: INSULIN REGULAR, HUMAN 100 UNIT/ML 10 ML VIAL ONE (05:11)
[2024-02-17] MEDS: SODIUM POLYSTYRENE SULFONATE 15 G/60 ML BOTTLE RC ONE (05:13)
[2024-02-17] MEDS: SODIUM BICARBONATE SYR 50 MEQ/50 ML DISP.SYRIN IV ONE (05:14)
[2024-02-17] MEDS: Calcium Gluconate 1GM/10ML 4.65 MEQ in IV NS 0.9% 100 ML IV ONE (05:14)
[2024-02-17] MEDS: INSULIN REGULAR, HUMAN 100 UNIT/ML 10 ML VIAL IV ONE (05:20)
[2024-02-17] MEDS: DEXTROSE 50%-WATER 50 ML DISP.SYRIN IVP ONE (05:20)
[2024-02-17] MEDS ORDERED: ONDANSETRON HCL/PF 4 MG/2 ML VIAL IVP PRN (05:30)
[2024-02-17] MEDS ORDERED: MAGNESIUM HYDROXIDE 30 ML UDC PO PRN (05:30)
[2024-02-17] MEDS ORDERED: Z GUARD REMEDY 4 OZ OINT TP PRN (05:30)
[2024-02-17] MEDS ORDERED: MAG HYDROX/AL HYDROX/SIMETH 30 ML UDC PO PRN (05:30)
[2024-02-17] MEDS ORDERED: DOCUSATE SODIUM 100 MG CAPSULE PO PRN (06:00)
[2024-02-17] MEDS: CALCIUM ACETATE 667 MG CAP/TAB PO SCH (08:00)
[2024-02-17] MEDS: HYDROCODONE/APAP 5/325MG TABLET PO PRN (08:57)
[2024-02-17] MEDS ORDERED: ERYTHROMYCIN BASE OPHTH 3.5 GM TUBE LEFTEYE SCH (09:00)
[2024-02-17] MEDS: CARVEDILOL 12.5 MG TABLET PO SCH (09:00)
[2024-02-17 09:43] LABS: CALCIUM, SERUM 9.2 mg/dL (8.5-10.1)
[2024-02-17 09:49] LABS: CREATININE 13.1 mg/dL (0.6-1.3); POTASSIUM 6.3 mmol/L (3.5-5.1)
[2024-02-17 12:00] VITALS: BP 175/96; TEMP 97.5; O2SAT 96
[2024-02-17 15:58] VITALS: BP 110/73; TEMP 99.2; O2SAT 97
[2024-02-17] MEDS: CINACALCET HCL 30 MG TABLET PO SCH (16:12)
[2024-02-17] MEDS: LORATADINE 10 MG TABLET PO SCH (16:14)
[2024-02-17 21:13] VITALS: BP 125/74; TEMP 98.2; O2SAT 98
[2024-02-18] VITALS (7 sets, daily range): BP systolic 100–146; BP diastolic 56–84; TEMP 97.9–98.4; O2SAT 91–100
[2024-02-18 07:31] LABS: BASOPHILS % (AUTO) 0.4 % (0.0-2.0); EOSINOPHILS # (AUTO) 0.2 K/uL (0.0-0.7); EOSINOPHILS % (AUTO) 3.7 % (0.0-6.0); HEMATOCRIT 26 % (39-51); HEMOGLOBIN 8.9 g/dL (13.5-17.5); LYMPHOCYTES # (AUTO) 0.8 K/uL (0.8-4.8); LYMPHOCYTES % (AUTO) 16.3 % (20.0-44.0); MEAN CORPUSCULAR HEMOGLOBIN 32 PG (26.0-33.0); MEAN CORPUSCULAR HGB CONC 34 g/dl (31.0-36.0); MEAN CORPUSCULAR VOLUME 95 fL (80-96); MONOCYTES # (AUTO) 0.4 K/uL (0.1-1.30); MONOCYTES % (AUTO) 8.7 % (2.0-12.0); NEUTROPHILS # (AUTO) 3.4 K/uL (1.8-8.9); NEUTROPHILS % (AUTO) 70.9 % (43.0-81.0); PLATELET COUNT (AUTO) 149 K/uL (150-450); RED BLOOD CELL COUNT(AUTO) 2.77 MIL/uL (4.5-6.0); RED CELL DISTRIBUTION WIDTH 15.8 % (11.5-15.0); WHITE BLOOD COUNT (AUTO) 4.8 K/uL (4.3-11.0)
[2024-02-18 10:11] LABS: HEPATITIS A AB, TOTAL Negative (Negative); HEPATITIS B CORE AB, TOTAL Negative (Negative); HEPATITIS Be AG Negative (Negative)
[2024-02-18 10:14] LABS: CALCIUM, SERUM 9.2 mg/dL (8.5-10.1); MAGNESIUM 2.4 mg/dL (1.8-2.4)
[2024-02-18 10:36] LABS: PHOSPHORUS 8.1 mg/dL (2.5-4.9)
[2024-02-18 10:39] LABS: CREATININE 9.5 mg/dL (0.6-1.3)
[2024-02-19 00:24] VITALS: BP 126/71; TEMP 97.9; O2SAT 97
[2024-02-19 04:03] VITALS: BP 132/82; TEMP 97.9; O2SAT 100
[2024-02-19 06:32] LABS: BASOPHILS % (AUTO) 0.4 % (0.0-2.0); EOSINOPHILS # (AUTO) 0.2 K/uL (0.0-0.7); EOSINOPHILS % (AUTO) 4.2 % (0.0-6.0); HEMATOCRIT 26 % (39-51); HEMOGLOBIN 8.7 g/dL (13.5-17.5); LYMPHOCYTES # (AUTO) 1.1 K/uL (0.8-4.8); LYMPHOCYTES % (AUTO) 22.9 % (20.0-44.0); MEAN CORPUSCULAR HEMOGLOBIN 32 PG (26.0-33.0); MEAN CORPUSCULAR HGB CONC 34 g/dl (31.0-36.0); MEAN CORPUSCULAR VOLUME 95 fL (80-96); MONOCYTES # (AUTO) 0.5 K/uL (0.1-1.30); MONOCYTES % (AUTO) 10.1 % (2.0-12.0); NEUTROPHILS % (AUTO) 62.4 % (43.0-81.0); PLATELET COUNT (AUTO) 146 K/uL (150-450); RED BLOOD CELL COUNT(AUTO) 2.73 MIL/uL (4.5-6.0); WHITE BLOOD COUNT (AUTO) 4.8 K/uL (4.3-11.0)
[2024-02-19 06:57] LABS: CALCIUM, SERUM 9.3 mg/dL (8.5-10.1); MAGNESIUM 2.5 mg/dL (1.8-2.4)
[2024-02-19 07:01] LABS: CREATININE 11.7 mg/dL (0.6-1.3); PHOSPHORUS 8.7 mg/dL (2.5-4.9); POTASSIUM 6.5 mmol/L (3.5-5.1)
[2024-02-19 07:15] LABS: FREE PSA < 0.06 ng/mL (0.00-45)
[2024-02-19 07:16] LABS: PROSTATE SPECIFIC ANTIGEN SCR < 0.13 ng/mL (0.00-4.00)
[2024-02-19 07:39] LABS: THYROID STIMULATING HORMONE 1.43 uIU/mL (0.358-3.74)
[2024-02-19] MEDS ORDERED: IOHEXOL-300 100 ML VIAL IV ONE (07:46)
[2024-02-19] MEDS ORDERED: IV NS 0.9% 250 ML IV ONE (07:46)
[2024-02-19 07:48] VITALS: BP 143/84; TEMP 97.9; O2SAT 98
[2024-02-19] MEDS: SODIUM POLYSTYRENE SULFONATE 15 G/60 ML BOTTLE PO ONE (08:25)
[2024-02-19 11:30] VITALS: BP 145/87; TEMP 98.2; O2SAT 100
[2024-02-19] MEDS: ACETAMINOPHEN 325 MG TABLET PO PRN (12:43)
[2024-02-19 16:00] VITALS: BP 134/83; TEMP 97.9; O2SAT 98
[2024-02-20 00:13] VITALS: BP 128/84; TEMP 97.7; O2SAT 98
[2024-02-20 04:07] VITALS: BP 155/90; TEMP 97.7; O2SAT 95
[2024-02-20 07:00] VITALS: BP 153/79; TEMP 98.1; O2SAT 94
[2024-02-20 07:22] LABS: BASOPHILS % (AUTO) 0.4 % (0.0-2.0); EOSINOPHILS # (AUTO) 0.2 K/uL (0.0-0.7); EOSINOPHILS % (AUTO) 4.4 % (0.0-6.0); HEMATOCRIT 27 % (39-51); HEMOGLOBIN 9.2 g/dL (13.5-17.5); LYMPHOCYTES # (AUTO) 0.8 K/uL (0.8-4.8); LYMPHOCYTES % (AUTO) 16.3 % (20.0-44.0); MEAN CORPUSCULAR HEMOGLOBIN 32 PG (26.0-33.0); MEAN CORPUSCULAR HGB CONC 34 g/dl (31.0-36.0); MEAN CORPUSCULAR VOLUME 94 fL (80-96); MONOCYTES # (AUTO) 0.5 K/uL (0.1-1.30); MONOCYTES % (AUTO) 11.2 % (2.0-12.0); NEUTROPHILS # (AUTO) 3.3 K/uL (1.8-8.9); NEUTROPHILS % (AUTO) 67.7 % (43.0-81.0); PLATELET COUNT (AUTO) 151 K/uL (150-450); RED BLOOD CELL COUNT(AUTO) 2.88 MIL/uL (4.5-6.0); RED CELL DISTRIBUTION WIDTH 15.7 % (11.5-15.0); WHITE BLOOD COUNT (AUTO) 4.9 K/uL (4.3-11.0)
[2024-02-20 07:33] LABS: CALCIUM, SERUM 8.9 mg/dL (8.5-10.1); POTASSIUM 5.1 mmol/L (3.5-5.1)
[2024-02-20 07:39] LABS: CREATININE 8.2 mg/dL (0.6-1.3)
[2024-02-20 08:12] LABS: IMMUNOGLOBULIN A, SERUM 78 mg/dL (90-386); IMMUNOGLOBULIN G, SERUM 812 mg/dL (603-1613); IMMUNOGLOBULIN M, SERUM 138 mg/dL (20-172)
[2024-02-20 10:09] LABS: AFP, TUMOR MARKER 4.2 ng/mL (0.0-6.9)
[2024-02-20 12:00] VITALS: BP 148/84; TEMP 97.2; O2SAT 96
[2024-02-20 13:09] LABS: FREE KAPPA LT CHAINS SERUM 133.7 mg/L (3.3-19.4); FREE LAMBDA LT CHAIN SERUM 84.9 mg/L (5.7-26.3); KAPPA/LAMBDA RATIO SERUM 1.57 (0.26-1.65)
[2024-02-20 14:10] LABS: *SPE A/G RATIO 1.2 (0.7-1.7); *SPE ALBUMIN 3.2 g/dL (2.9-4.4); *SPE ALPHA-1-GLOBULIN 0.3 g/dL (0.0-0.4); *SPE ALPHA-2-GLOBULIN 0.7 g/dL (0.4-1.0); *SPE BETA GLOBULIN 0.7 g/dL (0.7-1.3); *SPE GLOBULIN, TOTAL 2.6 g/dL (2.2-3.9); *SPE M-SPIKE Not Observed g/dL (Not Observed); *SPE PROTEIN TOTAL 5.8 g/dL (6.0-8.5); *SPEGAMMA GLOBULIN 0.9 g/dL (0.4-1.8)
[2024-02-20 16:00] VITALS: BP 140/76; TEMP 98; O2SAT 97
[2024-02-20] MEDS ORDERED: GADOTERATE MEGLUMINE 10 MMOL/20 ML VIAL IV ONE (16:45)
[2024-02-20 20:00] VITALS: BP 143/84; TEMP 97.9; O2SAT 98
[2024-02-21] VITALS (7 sets, daily range): BP systolic 111–128; BP diastolic 61–84; TEMP 97.7–98.4; O2SAT 98–100
[2024-02-21 06:52] LABS: BASOPHILS % (AUTO) 0.4 % (0.0-2.0); EOSINOPHILS # (AUTO) 0.2 K/uL (0.0-0.7); HEMATOCRIT 28 % (39-51); HEMOGLOBIN 9.4 g/dL (13.5-17.5); LYMPHOCYTES # (AUTO) 1.1 K/uL (0.8-4.8); LYMPHOCYTES % (AUTO) 27.9 % (20.0-44.0); MEAN CORPUSCULAR HEMOGLOBIN 32 PG (26.0-33.0); MEAN CORPUSCULAR HGB CONC 34 g/dl (31.0-36.0); MEAN CORPUSCULAR VOLUME 94 fL (80-96); MONOCYTES # (AUTO) 0.5 K/uL (0.1-1.30); MONOCYTES % (AUTO) 11.5 % (2.0-12.0); NEUTROPHILS # (AUTO) 2.3 K/uL (1.8-8.9); NEUTROPHILS % (AUTO) 55.2 % (43.0-81.0); PLATELET COUNT (AUTO) 143 K/uL (150-450); RED BLOOD CELL COUNT(AUTO) 2.96 MIL/uL (4.5-6.0); RED CELL DISTRIBUTION WIDTH 15.4 % (11.5-15.0); WHITE BLOOD COUNT (AUTO) 4.1 K/uL (4.3-11.0)
[2024-02-21 07:25] LABS: CALCIUM, SERUM 9.3 mg/dL (8.5-10.1); CREATININE 6.7 mg/dL (0.6-1.3); POTASSIUM 4.2 mmol/L (3.5-5.1)
[2024-02-22] VITALS: BP 106/57; TEMP 98.1; O2SAT 98
[2024-02-22 05:00] VITALS: BP 123/72; TEMP 97.3; O2SAT 96
[2024-02-22 07:11] LABS: BASOPHILS % (AUTO) 0.4 % (0.0-2.0); EOSINOPHILS # (AUTO) 0.3 K/uL (0.0-0.7); EOSINOPHILS % (AUTO) 5.5 % (0.0-6.0); HEMATOCRIT 26 % (39-51); HEMOGLOBIN 8.7 g/dL (13.5-17.5); LYMPHOCYTES # (AUTO) 1.2 K/uL (0.8-4.8); LYMPHOCYTES % (AUTO) 23.3 % (20.0-44.0); MEAN CORPUSCULAR HEMOGLOBIN 32 PG (26.0-33.0); MEAN CORPUSCULAR HGB CONC 34 g/dl (31.0-36.0); MEAN CORPUSCULAR VOLUME 94 fL (80-96); MONOCYTES # (AUTO) 0.5 K/uL (0.1-1.30); MONOCYTES % (AUTO) 10.3 % (2.0-12.0); NEUTROPHILS # (AUTO) 3.2 K/uL (1.8-8.9); NEUTROPHILS % (AUTO) 60.5 % (43.0-81.0); PLATELET COUNT (AUTO) 152 K/uL (150-450); RED BLOOD CELL COUNT(AUTO) 2.73 MIL/uL (4.5-6.0); RED CELL DISTRIBUTION WIDTH 15.6 % (11.5-15.0); WHITE BLOOD COUNT (AUTO) 5.3 K/uL (4.3-11.0)
[2024-02-22 07:22] LABS: CALCIUM, SERUM 9.1 mg/dL (8.5-10.1); POTASSIUM 5.3 mmol/L (3.5-5.1)
[2024-02-22 07:25] LABS: CREATININE 9.7 mg/dL (0.6-1.3)
[2024-02-22 08:32] VITALS: BP 132/80; TEMP 97.7; O2SAT 95
[2024-02-22 12:18] VITALS: BP 116/74; O2SAT 100
[2024-02-22] MEDS ORDERED: HYDR-4303 PO (17:10)
== END 2024-02-22 13:40 | disposition home or self-care (01) | DRG 640 ==
LOC: ER 03:41 → TELE 05:28
PROVIDERS: ADMIT Internal Medicine; ATTEND Internal Medicine
PROC: 5A1D70Z Performance of Urinary Filtration, Intermittent, Less than 6 Hours Per Day (ICD-10-PCS; principal; 2024-02-17)
DX: E87.5 Hyperkalemia (principal); N18.6 End stage renal disease; I12.0 Hypertensive chronic kidney disease with stage 5 chronic kidney disease or end stage renal disease; J81.1 Chronic pulmonary edema; Z99.2 Dependence on renal dialysis; I16.0 Hypertensive urgency; E87.70 Fluid overload, unspecified; D64.9 Anemia, unspecified; N25.0 Renal osteodystrophy; M89.8X9 Other specified disorders of bone, unspecified site; Z85.51 Personal history of malignant neoplasm of bladder; Z79.899 Other long term (current) drug therapy; M54.9 Dorsalgia, unspecified; E87.20 Acidosis, unspecified; R19.09 Other intra-abdominal and pelvic swelling, mass and lump; M54.10 Radiculopathy, site unspecified; M79.662 Pain in left lower leg; M79.661 Pain in right lower leg; Z90.5 Acquired absence of kidney; E83.118 Other hemochromatosis; Z90.6 Acquired absence of other parts of urinary tract; R93.89 Abnormal findings on diagnostic imaging of other specified body structures
CPT/HCPCS: 36415; 71045-TC; 71260-TC; 72197-TC; 74183; 80048-TC; 80053-TC; 82105; 82378; 82607-TC; 82728-TC; 82784; 82962-TC; 83540-TC; 83605-TC; 83615-TC; 83735-TC; 84100-TC; 84153-TC; 84154-TC; 84155; 84165; 84443-TC; 84702-TC; 85025-TC; 86334; 86704; 86709-TC; 87081-TC; 87350; 90935-TC; A4223; A9575; G0378; J0610; J1815; J3490; J7030; J7050; Q9967

== ENCOUNTER 2024-04-23 15:49 | Emergency (ER) | payer MEDICARE, OTHER ==
[~2024-04-23] VITALS: Ht 167.6 cm; Wt 80.3 kg
[~2024-04-23 15:49] MED LIST changes: -AMOX-430 PO; -CALC667C6 PO; -ERYT3.5O9 LEFTEYE; -HYDR-3973 PO; +HYDR-4303 PO; -LORA10TA7 PO
[2024-04-23 15:58] VITALS: TEMP 98.7
[2024-04-23 16:21] LABS: BASOPHILS % (AUTO) 0.5 % (0.0-2.0); EOSINOPHILS # (AUTO) 0.2 K/uL (0.0-0.7); EOSINOPHILS % (AUTO) 4.8 % (0.0-6.0); HEMATOCRIT 28 % (39-51); HEMOGLOBIN 8.8 g/dL (13.5-17.5); LYMPHOCYTES # (AUTO) 1.1 K/uL (0.8-4.8); LYMPHOCYTES % (AUTO) 20.8 % (20.0-44.0); MEAN CORPUSCULAR HEMOGLOBIN 31 PG (26.0-33.0); MEAN CORPUSCULAR HGB CONC 32 g/dl (31.0-36.0); MEAN CORPUSCULAR VOLUME 99 fL (80-96); MONOCYTES # (AUTO) 0.5 K/uL (0.1-1.30); MONOCYTES % (AUTO) 10.8 % (2.0-12.0); NEUTROPHILS # (AUTO) 3.2 K/uL (1.8-8.9); NEUTROPHILS % (AUTO) 63.1 % (43.0-81.0); PLATELET COUNT (AUTO) 181 K/uL (150-450); RED CELL DISTRIBUTION WIDTH 17.8 % (11.5-15.0); WHITE BLOOD COUNT (AUTO) 5.1 K/uL (4.3-11.0)
[2024-04-23] MEDS: IV NS 0.9% 1,000 ML BAG IV ONE (16:25)
[2024-04-23 16:38] LABS: ALBUMIN 3.4 g/dL (3.4-5.0); BILIRUBIN,DIRECT 0.1 mg/dL (0.0-0.2); BILIRUBIN,TOTAL 0.4 mg/dL (0.2-1.0); CALCIUM, SERUM 8.9 mg/dL (8.5-10.1); TOTAL PROTEIN, SERUM 6.6 g/dL (6.4-8.2)
[2024-04-23 16:56] LABS: CREATININE 8.9 mg/dL (0.6-1.3)
[2024-04-23 16:59] LABS: POTASSIUM 4.9 mmol/L (3.5-5.1)
[2024-04-23 17:50] VITALS: BP 146/90; O2SAT 97
== END 2024-04-23 17:51 | disposition home or self-care (01) ==
LOC: ER 15:55
DX: I12.0 Hypertensive chronic kidney disease with stage 5 chronic kidney disease or end stage renal disease (principal); E11.22 Type 2 diabetes mellitus with diabetic chronic kidney disease; N18.6 End stage renal disease; Z99.2 Dependence on renal dialysis; Z86.79 Personal history of other diseases of the circulatory system; Z87.19 Personal history of other diseases of the digestive system; Z90.49 Acquired absence of other specified parts of digestive tract; Z90.5 Acquired absence of kidney; Z90.79 Acquired absence of other genital organ(s); Z90.6 Acquired absence of other parts of urinary tract
CPT/HCPCS: 99285; 96360; 71045; 93005; 85025; 80048; 80076; 36415; J7030 ×2

== ENCOUNTER 2024-08-05 04:14 | Inpatient (IN) | payer MEDICARE, OTHER ==
[~2024-08-05] VITALS: Ht 167.6 cm; Wt 79.8 kg
[2024-08-05] VITALS (12 sets, daily range): BP systolic 130–158; BP diastolic 58–80; TEMP 97.5–98.4; O2SAT 93–100
[2024-08-05 05:10] LABS: BASOPHILS % (AUTO) 0.4 % (0.0-2.0); EOSINOPHILS # (AUTO) 0.3 K/uL (0.0-0.7); EOSINOPHILS % (AUTO) 4.5 % (0.0-6.0); LYMPHOCYTES # (AUTO) 0.9 K/uL (0.8-4.8); LYMPHOCYTES % (AUTO) 12.2 % (20.0-44.0); MEAN CORPUSCULAR HEMOGLOBIN 33 PG (26.0-33.0); MEAN CORPUSCULAR HGB CONC 33 g/dl (31.0-36.0); MEAN CORPUSCULAR VOLUME 99 fL (80-96); MONOCYTES # (AUTO) 0.4 K/uL (0.1-1.30); MONOCYTES % (AUTO) 5.1 % (2.0-12.0); NEUTROPHILS # (AUTO) 5.5 K/uL (1.8-8.9); NEUTROPHILS % (AUTO) 77.8 % (43.0-81.0); PLATELET COUNT (AUTO) 169 K/uL (150-450); RED BLOOD CELL COUNT(AUTO) 1.55 MIL/uL (4.5-6.0); RED CELL DISTRIBUTION WIDTH 18.1 % (11.5-15.0); WHITE BLOOD COUNT (AUTO) 7.1 K/uL (4.3-11.0)
[2024-08-05 05:12] LABS: HEMATOCRIT 15 % (39-51); HEMOGLOBIN 5.1 g/dL (13.5-17.5)
[2024-08-05 05:15] LABS: CALCIUM, SERUM 9.4 mg/dL (8.5-10.1)
[2024-08-05 05:17] LABS: CREATININE 10.9 mg/dL (0.6-1.3); POTASSIUM 6.8 mmol/L (3.5-5.1)
[2024-08-05] MEDS: DEXTROSE 50%-WATER 50 ML DISP.SYRIN IV ONE ×2 (05:30→05:59)
[2024-08-05] MEDS: INSULIN REGULAR, HUMAN 100 UNIT/ML 10 ML VIAL IV ONE (05:30)
[2024-08-05] MEDS ORDERED: SODIUM BICARBONATE SYR 50 MEQ/50 ML DISP.SYRIN ONE (05:36)
[2024-08-05] MEDS ORDERED: DEXTROSE 50%-WATER 50 ML DISP.SYRIN ONE ×2 (05:36→05:48)
[2024-08-05] MEDS ORDERED: INSULIN REGULAR, HUMAN 100 UNIT/ML 10 ML VIAL ONE (05:36)
[2024-08-05] MEDS ORDERED: SODIUM POLYSTYRENE SULFONATE 15 G/60 ML BOTTLE ONE (05:36)
[2024-08-05 05:44] LABS: ANISOCYTOSIS 1+; BASOPHILS % (MANUAL) 0 % (0.0-2.0); EOSINOPHILS % (MANUAL) 3 % (0-4); LYMPHOCYTES % (MANUAL) 10 % (16-48); MONOCYTES % (MANUAL) 8 % (0-11.0); NEUTROPHILS % (MANUAL) 79 (42-76); PLATELET ESTIMATE ADEQUATE; STOMATOCYTES 1+
[2024-08-05] MEDS ORDERED: PANTOPRAZOLE 40 MG VIAL ONE (05:49)
[2024-08-05] MEDS: ALBUTEROL FS 2.5 MG/3 ML VIAL.NEB NEB ONE (05:54)
[2024-08-05] MEDS ORDERED: ALBUTEROL FS 2.5 MG/3 ML VIAL.NEB ONE (05:55)
[2024-08-05] MEDS: SODIUM POLYSTYRENE SULFONATE 15 G/60 ML BOTTLE PO ONE (05:59)
[2024-08-05] MEDS: SODIUM BICARBONATE SYR 50 MEQ/50 ML DISP.SYRIN IV ONE (05:59)
[2024-08-05] MEDS: PANTOPRAZOLE 80 MG in IV NS 0.9% 100 ML IV ONE (06:00)
[2024-08-05] MEDS: PANTOPRAZOLE 80 MG in IV NS 0.9% 500 ML IV ONE (06:00)
[2024-08-05 06:26] LABS: ALBUMIN 2.9 g/dL (3.4-5.0); BILIRUBIN,DIRECT 0.1 mg/dL (0.0-0.2); BILIRUBIN,TOTAL 0.3 mg/dL (0.2-1.0); TOTAL PROTEIN, SERUM 5.8 g/dL (6.4-8.2)
[2024-08-05] MEDS ORDERED: HYDR-3972 PO (07:59)
[2024-08-05] MEDS: MORPHINE SULFATE INJ 2 MG/ML DISP.SYRIN IV PRN (12:46)
[2024-08-05 13:29] LABS: BASOPHILS % (AUTO) 0.7 % (0.0-2.0); EOSINOPHILS # (AUTO) 0.2 K/uL (0.0-0.7); EOSINOPHILS % (AUTO) 2.9 % (0.0-6.0); LYMPHOCYTES # (AUTO) 1.2 K/uL (0.8-4.8); LYMPHOCYTES % (AUTO) 20.1 % (20.0-44.0); MEAN CORPUSCULAR HEMOGLOBIN 32 PG (26.0-33.0); MEAN CORPUSCULAR HGB CONC 33 g/dl (31.0-36.0); MEAN CORPUSCULAR VOLUME 96 fL (80-96); MONOCYTES # (AUTO) 0.5 K/uL (0.1-1.30); MONOCYTES % (AUTO) 7.6 % (2.0-12.0); NEUTROPHILS # (AUTO) 4.2 K/uL (1.8-8.9); NEUTROPHILS % (AUTO) 68.7 % (43.0-81.0); PLATELET COUNT (AUTO) 173 K/uL (150-450); RED CELL DISTRIBUTION WIDTH 17.8 % (11.5-15.0); WHITE BLOOD COUNT (AUTO) 6.1 K/uL (4.3-11.0)
[2024-08-05 13:57] LABS: RED BLOOD CELL COUNT(AUTO) 1.93 MIL/uL (4.5-6.0)
[2024-08-05 14:02] LABS: HEMATOCRIT 19 % (39-51); HEMOGLOBIN 6.2 g/dL (13.5-17.5)
[2024-08-05] MEDS ORDERED: HYDROCODONE/APAP 5/325MG TABLET PO PRN (16:00)
[2024-08-05] MEDS ORDERED: DOCUSATE SODIUM 100 MG CAPSULE PO PRN (16:00)
[2024-08-05] MEDS: CARVEDILOL 12.5 MG TABLET PO SCH (17:00)
[2024-08-05] MEDS: CINACALCET HCL 30 MG TABLET PO SCH (17:00)
[2024-08-05 21:59] LABS: ANISOCYTOSIS 1+; EOSINOPHILS % (MANUAL) 4 % (0-4); LYMPHOCYTES % (MANUAL) 20 % (16-48); MONOCYTES % (MANUAL) 6 % (0-11.0); NEUTROPHILS % (MANUAL) 70 (42-76); OVALOCYTES 1+; PLATELET ESTIMATE ADEQUATE
[2024-08-06] VITALS (7 sets, daily range): BP systolic 124–140; BP diastolic 61–75; TEMP 97.7–98.2; O2SAT 97–98
[2024-08-06 07:25] LABS: BASOPHILS % (AUTO) 0.5 % (0.0-2.0); EOSINOPHILS # (AUTO) 0.3 K/uL (0.0-0.7); EOSINOPHILS % (AUTO) 6.1 % (0.0-6.0); MEAN CORPUSCULAR HEMOGLOBIN 32 PG (26.0-33.0); MEAN CORPUSCULAR HGB CONC 35 g/dl (31.0-36.0); MEAN CORPUSCULAR VOLUME 94 fL (80-96); MONOCYTES # (AUTO) 0.5 K/uL (0.1-1.30); MONOCYTES % (AUTO) 9.5 % (2.0-12.0); NEUTROPHILS # (AUTO) 3.7 K/uL (1.8-8.9); NEUTROPHILS % (AUTO) 66.9 % (43.0-81.0); PLATELET COUNT (AUTO) 170 K/uL (150-450); RED CELL DISTRIBUTION WIDTH 18.1 % (11.5-15.0); WHITE BLOOD COUNT (AUTO) 5.6 K/uL (4.3-11.0)
[2024-08-06 07:29] LABS: HEMATOCRIT 19 % (39-51); HEMOGLOBIN 6.5 g/dL (13.5-17.5)
[2024-08-06] MEDS: SEVELAMER CARBONATE 800 MG TABLET PO SCH (08:00)
[2024-08-06 08:57] LABS: CALCIUM, SERUM 8.8 mg/dL (8.5-10.1); POTASSIUM 4.8 mmol/L (3.5-5.1)
[2024-08-06 10:45] LABS: ANISOCYTOSIS 1+; BASOPHILS % (MANUAL) 0 % (0.0-2.0); EOSINOPHILS % (MANUAL) 4 % (0-4); LYMPHOCYTES % (MANUAL) 15 % (16-48); MONOCYTES % (MANUAL) 10 % (0-11.0); NEUTROPHILS % (MANUAL) 71 (42-76); PLATELET ESTIMATE ADEQUATE
[2024-08-06] MEDS ORDERED: IV NS 0.9% 250 ML IV ONE (10:54)
[2024-08-06] MEDS ORDERED: IOHEXOL-300 100 ML VIAL IV ONE (10:54)
[2024-08-06] MEDS ORDERED: CT SWABBABLE VALVE TRANS SET 1 EA INFUS.SET MC ONE (10:54)
[2024-08-06 20:47] LABS: OCCULT BLOOD STOOL POSITIVE (NEGATIVE)
[2024-08-07] VITALS (30 sets, daily range): BP systolic 93–154; BP diastolic 47–75; TEMP 97.4–98.9; O2SAT 99–100
[2024-08-07 09:31] LABS: CALCIUM, SERUM 8.2 mg/dL (8.5-10.1)
[2024-08-07 09:48] LABS: CREATININE 10.7 mg/dL (0.6-1.3); POTASSIUM 6.4 mmol/L (3.5-5.1)
[2024-08-07 11:42] LABS: RED BLOOD CELL COUNT(AUTO) 1.53 MIL/uL (4.5-6.0); WHITE BLOOD COUNT (AUTO) 8.4 K/uL (4.3-11.0)
[2024-08-07 11:43] LABS: BASOPHILS % (AUTO) 0.5 % (0.0-2.0); EOSINOPHILS # (AUTO) 0.1 K/uL (0.0-0.7); EOSINOPHILS % (AUTO) 0.8 % (0.0-6.0); HEMATOCRIT 15 % (39-51); LYMPHOCYTES % (AUTO) 11.9 % (20.0-44.0); MEAN CORPUSCULAR HEMOGLOBIN 33 PG (26.0-33.0); MEAN CORPUSCULAR HGB CONC 34 g/dl (31.0-36.0); MEAN CORPUSCULAR VOLUME 96 fL (80-96); MONOCYTES # (AUTO) 0.5 K/uL (0.1-1.30); MONOCYTES % (AUTO) 5.9 % (2.0-12.0); NEUTROPHILS # (AUTO) 6.8 K/uL (1.8-8.9); NEUTROPHILS % (AUTO) 80.9 % (43.0-81.0); PLATELET COUNT (AUTO) 207 K/uL (150-450); RED CELL DISTRIBUTION WIDTH 17.2 % (11.5-15.0)
[2024-08-07 15:37] LABS: LYMPHOCYTES % (MANUAL) 15 % (16-48); MONOCYTES % (MANUAL) 5 % (0-11.0); NEUTROPHILS % (MANUAL) 80 (42-76)
[2024-08-07 15:45] LABS: PLATELET ESTIMATE ADEQUATE
[2024-08-07 15:46] LABS: ANISOCYTOSIS 1+; HYPOCHROMASIA 2+
[2024-08-07] MEDS: PANTOPRAZOLE 80 MG in IV NS 0.9% 500 ML IV SCH (18:28)
[2024-08-07 18:53] LABS: BASOPHILS % (AUTO) 0.4 % (0.0-2.0); EOSINOPHILS # (AUTO) 0.1 K/uL (0.0-0.7); EOSINOPHILS % (AUTO) 1.3 % (0.0-6.0); LYMPHOCYTES # (AUTO) 0.7 K/uL (0.8-4.8); LYMPHOCYTES % (AUTO) 13.2 % (20.0-44.0); MEAN CORPUSCULAR HEMOGLOBIN 31 PG (26.0-33.0); MEAN CORPUSCULAR HGB CONC 35 g/dl (31.0-36.0); MEAN CORPUSCULAR VOLUME 90 fL (80-96); MONOCYTES # (AUTO) 0.7 K/uL (0.1-1.30); NEUTROPHILS # (AUTO) 4.1 K/uL (1.8-8.9); NEUTROPHILS % (AUTO) 73.1 % (43.0-81.0); PLATELET COUNT (AUTO) 132 K/uL (150-450); RED BLOOD CELL COUNT(AUTO) 2.05 MIL/uL (4.5-6.0); RED CELL DISTRIBUTION WIDTH 16.6 % (11.5-15.0); WHITE BLOOD COUNT (AUTO) 5.6 K/uL (4.3-11.0)
[2024-08-07 19:33] LABS: HEMATOCRIT 18 % (39-51); HEMOGLOBIN 6.4 g/dL (13.5-17.5)
[2024-08-07 21:42] LABS: ANISOCYTOSIS 1+; EOSINOPHILS % (MANUAL) 2 % (0-4); HYPOCHROMASIA 1+; LYMPHOCYTES % (MANUAL) 15 % (16-48); MONOCYTES % (MANUAL) 6 % (0-11.0); NEUTROPHILS % (MANUAL) 77 (42-76); PLATELET ESTIMATE DECREASED
[2024-08-08] VITALS (29 sets, daily range): BP systolic 92–132; BP diastolic 40–80; TEMP 98–99; O2SAT 95–100
[2024-08-08 05:17] LABS: CALCIUM, SERUM 8.5 mg/dL (8.5-10.1); CREATININE 7.1 mg/dL (0.6-1.3); POTASSIUM 4.6 mmol/L (3.5-5.1)
[2024-08-08 05:47] LABS: BASOPHILS % (AUTO) 0.4 % (0.0-2.0); EOSINOPHILS # (AUTO) 0.2 K/uL (0.0-0.7); EOSINOPHILS % (AUTO) 2.9 % (0.0-6.0); LYMPHOCYTES # (AUTO) 0.9 K/uL (0.8-4.8); LYMPHOCYTES % (AUTO) 14.7 % (20.0-44.0); MEAN CORPUSCULAR HEMOGLOBIN 32 PG (26.0-33.0); MEAN CORPUSCULAR HGB CONC 35 g/dl (31.0-36.0); MEAN CORPUSCULAR VOLUME 90 fL (80-96); MONOCYTES # (AUTO) 0.8 K/uL (0.1-1.30); MONOCYTES % (AUTO) 13.5 % (2.0-12.0); NEUTROPHILS # (AUTO) 4.2 K/uL (1.8-8.9); NEUTROPHILS % (AUTO) 68.5 % (43.0-81.0); PLATELET COUNT (AUTO) 122 K/uL (150-450); RED BLOOD CELL COUNT(AUTO) 2.05 MIL/uL (4.5-6.0); RED CELL DISTRIBUTION WIDTH 15.4 % (11.5-15.0); WHITE BLOOD COUNT (AUTO) 6.2 K/uL (4.3-11.0)
[2024-08-08 05:50] LABS: HEMATOCRIT 18 % (39-51); HEMOGLOBIN 6.5 g/dL (13.5-17.5)
[2024-08-08] MEDS: PANTOPRAZOLE 80 MG in IV NS 0.9% 500 ML IV SCH (08:43)
[2024-08-08 10:00] LABS: BASOPHILS % (MANUAL) 0 % (0.0-2.0); EOSINOPHILS % (MANUAL) 3 % (0-4); LYMPHOCYTES % (MANUAL) 12 % (16-48); MONOCYTES % (MANUAL) 12 % (0-11.0); NEUTROPHILS % (MANUAL) 73 (42-76)
[2024-08-08 10:01] LABS: PLATELET ESTIMATE DECREASED
[2024-08-08 15:42] LABS: HEMOGLOBIN 6.8 g/dL (13.5-17.5)
[2024-08-09] VITALS (32 sets, daily range): BP systolic 57–157; BP diastolic 13–86; TEMP 97.9–98.7; O2SAT 94–100
[2024-08-09 08:55] LABS: HEMOGLOBIN 6.5 g/dL (13.5-17.5)
[2024-08-09 11:08] LABS: BASOPHILS % (AUTO) 0.4 % (0.0-2.0); EOSINOPHILS # (AUTO) 0.2 K/uL (0.0-0.7); EOSINOPHILS % (AUTO) 3.3 % (0.0-6.0); LYMPHOCYTES # (AUTO) 0.5 K/uL (0.8-4.8); LYMPHOCYTES % (AUTO) 9.9 % (20.0-44.0); MEAN CORPUSCULAR HEMOGLOBIN 32 PG (26.0-33.0); MEAN CORPUSCULAR HGB CONC 35 g/dl (31.0-36.0); MEAN CORPUSCULAR VOLUME 91 fL (80-96); MONOCYTES # (AUTO) 0.4 K/uL (0.1-1.30); MONOCYTES % (AUTO) 7.4 % (2.0-12.0); NEUTROPHILS # (AUTO) 4.2 K/uL (1.8-8.9); PLATELET COUNT (AUTO) 123 K/uL (150-450); RED CELL DISTRIBUTION WIDTH 15.5 % (11.5-15.0); WHITE BLOOD COUNT (AUTO) 5.3 K/uL (4.3-11.0)
[2024-08-09 11:13] LABS: ALBUMIN 1.7 g/dL (3.4-5.0); BILIRUBIN,TOTAL 0.6 mg/dL (0.2-1.0); CREATININE 6.5 mg/dL (0.6-1.3); MAGNESIUM 1.9 mg/dL (1.8-2.4); PHOSPHORUS 5.8 mg/dL (2.5-4.9); POTASSIUM 4.8 mmol/L (3.5-5.1)
[2024-08-09 11:26] LABS: RED BLOOD CELL COUNT(AUTO) 1.84 MIL/uL (4.5-6.0)
[2024-08-09 11:28] LABS: HEMATOCRIT 17 % (39-51)
[2024-08-09 11:43] LABS: CALCIUM, SERUM 7.8 mg/dL (8.5-10.1); TOTAL PROTEIN, SERUM 3.9 g/dL (6.4-8.2)
[2024-08-09 11:56] LABS: INR 1.07 (0.91-1.10); PROTHROMBIN TIME 11.3 SECS (9.2-11.1)
[2024-08-09 13:07] LABS: LYMPHOCYTES % (MANUAL) 11 % (16-48); MONOCYTES % (MANUAL) 5 % (0-11.0); NEUTROPHILS % (MANUAL) 84 (42-76); PLATELET ESTIMATE DECREASED
[2024-08-09 13:08] LABS: ANISOCYTOSIS 1+
[2024-08-09] MEDS: EPOETIN ALFA (10,000 UNIT) 10,000 UNIT/ML VIAL SQ SCH (14:40)
[2024-08-09] MEDS: PANTOPRAZOLE 80 MG in IV NS 0.9% 500 ML IV SCH (17:15)
[2024-08-09 19:09] LABS: HEMOGLOBIN 7.6 g/dL (13.5-17.5)
[2024-08-10] VITALS (61 sets, daily range): BP systolic 120–171; BP diastolic 41–108; TEMP 98.1–99.2; O2SAT 91–100
[2024-08-10 00:31] LABS: HEMOGLOBIN 7.5 g/dL (13.5-17.5)
[2024-08-10 01:06] LABS: HEPATITIS B SURFACE AB Reactive (.)
[2024-08-10 04:34] LABS: BASOPHILS % (AUTO) 0.3 % (0.0-2.0); EOSINOPHILS # (AUTO) 0.3 K/uL (0.0-0.7); EOSINOPHILS % (AUTO) 4.2 % (0.0-6.0); HEMATOCRIT 21 % (39-51); HEMOGLOBIN 7.2 g/dL (13.5-17.5); LYMPHOCYTES # (AUTO) 0.7 K/uL (0.8-4.8); LYMPHOCYTES % (AUTO) 10.9 % (20.0-44.0); MEAN CORPUSCULAR HEMOGLOBIN 31 PG (26.0-33.0); MEAN CORPUSCULAR HGB CONC 35 g/dl (31.0-36.0); MEAN CORPUSCULAR VOLUME 91 fL (80-96); MONOCYTES # (AUTO) 0.6 K/uL (0.1-1.30); MONOCYTES % (AUTO) 8.3 % (2.0-12.0); NEUTROPHILS # (AUTO) 5.1 K/uL (1.8-8.9); NEUTROPHILS % (AUTO) 76.3 % (43.0-81.0); PLATELET COUNT (AUTO) 138 K/uL (150-450); RED BLOOD CELL COUNT(AUTO) 2.29 MIL/uL (4.5-6.0); RED CELL DISTRIBUTION WIDTH 15.8 % (11.5-15.0); WHITE BLOOD COUNT (AUTO) 6.7 K/uL (4.3-11.0)
[2024-08-10 17:41] LABS: BASOPHILS % (AUTO) 0.2 % (0.0-2.0); EOSINOPHILS # (AUTO) 0.4 K/uL (0.0-0.7); EOSINOPHILS % (AUTO) 5.6 % (0.0-6.0); HEMATOCRIT 23 % (39-51); HEMOGLOBIN 8.2 g/dL (13.5-17.5); LYMPHOCYTES # (AUTO) 0.6 K/uL (0.8-4.8); LYMPHOCYTES % (AUTO) 7.8 % (20.0-44.0); MEAN CORPUSCULAR HEMOGLOBIN 32 PG (26.0-33.0); MEAN CORPUSCULAR HGB CONC 36 g/dl (31.0-36.0); MEAN CORPUSCULAR VOLUME 89 fL (80-96); MONOCYTES # (AUTO) 0.6 K/uL (0.1-1.30); MONOCYTES % (AUTO) 8.2 % (2.0-12.0); NEUTROPHILS # (AUTO) 5.7 K/uL (1.8-8.9); NEUTROPHILS % (AUTO) 78.2 % (43.0-81.0); PLATELET COUNT (AUTO) 160 K/uL (150-450); RED BLOOD CELL COUNT(AUTO) 2.57 MIL/uL (4.5-6.0); RED CELL DISTRIBUTION WIDTH 15.9 % (11.5-15.0); WHITE BLOOD COUNT (AUTO) 7.3 K/uL (4.3-11.0)
[2024-08-10 19:14] LABS: HEMOGLOBIN 7.4 g/dL (13.5-17.5)
[2024-08-10 20:50] LABS: ALBUMIN 1.6 g/dL (3.4-5.0); BILIRUBIN,TOTAL 0.7 mg/dL (0.2-1.0); CALCIUM, SERUM 8.2 mg/dL (8.5-10.1); CREATININE 4.7 mg/dL (0.6-1.3); MAGNESIUM 1.7 mg/dL (1.8-2.4); PHOSPHORUS 4.8 mg/dL (2.5-4.9); POTASSIUM 3.8 mmol/L (3.5-5.1)
[2024-08-10] MEDS: PANTOPRAZOLE 40 MG VIAL IV SCH (21:59)
[2024-08-11] VITALS (11 sets, daily range): BP systolic 110–148; BP diastolic 52–72; TEMP 97.9–99; O2SAT 100
[2024-08-11 07:10] LABS: ALBUMIN 1.6 g/dL (3.4-5.0); BILIRUBIN,TOTAL 0.6 mg/dL (0.2-1.0); CALCIUM, SERUM 8.2 mg/dL (8.5-10.1); CREATININE 5.8 mg/dL (0.6-1.3); MAGNESIUM 1.9 mg/dL (1.8-2.4); PHOSPHORUS 5.9 mg/dL (2.5-4.9); POTASSIUM 4.6 mmol/L (3.5-5.1); TOTAL PROTEIN, SERUM 3.9 g/dL (6.4-8.2)
[2024-08-11 09:43] LABS: BASOPHILS % (AUTO) 0.7 % (0.0-2.0); EOSINOPHILS # (AUTO) 0.4 K/uL (0.0-0.7); EOSINOPHILS % (AUTO) 6.5 % (0.0-6.0); LYMPHOCYTES # (AUTO) 0.6 K/uL (0.8-4.8); LYMPHOCYTES % (AUTO) 11.2 % (20.0-44.0); MEAN CORPUSCULAR HEMOGLOBIN 32 PG (26.0-33.0); MEAN CORPUSCULAR HGB CONC 35 g/dl (31.0-36.0); MEAN CORPUSCULAR VOLUME 91 fL (80-96); MONOCYTES # (AUTO) 0.4 K/uL (0.1-1.30); MONOCYTES % (AUTO) 7.7 % (2.0-12.0); NEUTROPHILS # (AUTO) 4.2 K/uL (1.8-8.9); NEUTROPHILS % (AUTO) 73.9 % (43.0-81.0); PLATELET COUNT (AUTO) 146 K/uL (150-450); RED CELL DISTRIBUTION WIDTH 15.4 % (11.5-15.0); WHITE BLOOD COUNT (AUTO) 5.6 K/uL (4.3-11.0)
[2024-08-11 09:44] LABS: RED BLOOD CELL COUNT(AUTO) 1.83 MIL/uL (4.5-6.0)
[2024-08-11 09:46] LABS: HEMATOCRIT 17 % (39-51); HEMOGLOBIN 5.8 g/dL (13.5-17.5)
[2024-08-11 12:11] LABS: NEUTROPHILS % (MANUAL) 73 (42-76)
[2024-08-11 12:12] LABS: ANISOCYTOSIS 1+; EOSINOPHILS % (MANUAL) 6 % (0-4); LYMPHOCYTES % (MANUAL) 11 % (16-48); MONOCYTES % (MANUAL) 10 % (0-11.0); PLATELET ESTIMATE DECREASED
[2024-08-11 17:46] LABS: HEMOGLOBIN 8.6 g/dL (13.5-17.5)
== END 2024-08-11 18:58 | disposition short-term general hospital (02) | DRG 377 ==
LOC: ER 04:18 → TRANSITION 06:20 → TELE 11:20 → ICU 08-07 12:39 → TELE1 08-10 20:10
PROVIDERS: ADMIT Internal Medicine; ATTEND Internal Medicine
PROC: 5A1D70Z Performance of Urinary Filtration, Intermittent, Less than 6 Hours Per Day (ICD-10-PCS; principal; 2024-08-05)
PROC: 30233N1 Transfusion of Nonautologous Red Blood Cells into Peripheral Vein, Percutaneous Approach (ICD-10-PCS; 2024-08-06)
PROC: 0DB68ZX Excision of Stomach, Via Natural or Artificial Opening Endoscopic, Diagnostic (ICD-10-PCS; 2024-08-08)
PROC: 0W3P8ZZ Control Bleeding in Gastrointestinal Tract, Via Natural or Artificial Opening Endoscopic (ICD-10-PCS; 2024-08-09)
DX: K26.4 Chronic or unspecified duodenal ulcer with hemorrhage (principal); N18.6 End stage renal disease; I12.0 Hypertensive chronic kidney disease with stage 5 chronic kidney disease or end stage renal disease; K29.70 Gastritis, unspecified, without bleeding; K64.9 Unspecified hemorrhoids; D69.6 Thrombocytopenia, unspecified; E87.5 Hyperkalemia; F32.A Depression, unspecified; D63.8 Anemia in other chronic diseases classified elsewhere; Z85.51 Personal history of malignant neoplasm of bladder; Z90.5 Acquired absence of kidney; Z99.2 Dependence on renal dialysis; N25.0 Renal osteodystrophy; D50.0 Iron deficiency anemia secondary to blood loss (chronic)
CPT/HCPCS: 36415; 71045-TC; 74178; 80048-TC; 80053-TC; 80076-TC; 82272-TC; 82962-TC; 83690-TC; 83735-TC; 84100-TC; 85025-TC; 85027-TC; 85610-TC; 86706; 86850-TC; 87340; 88305-TC; 88312-TC; 88313-TC; 90935-TC; A4223; G0378; J0330; J0885; J1815; J2270; J2470; J2704; J3490; J7030; J7040; J7050; P9016; Q9967

== ENCOUNTER 2025-06-18 10:22 | Inpatient (IN) | payer MEDICARE, OTHER ==
[~2025-06-18] VITALS: Ht 167.6 cm; Wt 60.8 kg
[~2025-06-18 10:22] MED LIST changes: +HYDR-3972 PO; -HYDR-4303 PO
[2025-06-18] MEDS ORDERED: METOPROLOL TARTRATE INJ 5 MG/5 ML AMPUL ONE (10:41)
[2025-06-18 10:51] LABS: PLATELET COUNT (AUTO) 165 K/uL (150-450); RED BLOOD CELL COUNT(AUTO) 2.80 MIL/uL (4.5-6.0); RED CELL DISTRIBUTION WIDTH 15.2 % (11.5-15.0); WHITE BLOOD COUNT (AUTO) 3.7 K/uL (4.3-11.0)
[2025-06-18] MEDS: METOPROLOL TARTRATE INJ 5 MG/5 ML AMPUL IV ONE (10:54)
[2025-06-18] MEDS: IV NS 0.9% 500 ML BAG IV ONE (10:55)
[2025-06-18 10:56] LABS: CALCIUM, SERUM 9.4 mg/dL (8.5-10.1); CREATININE 3.1 mg/dL (0.6-1.3); SODIUM SERUM 138 mmol/L (136-145); UREA NITROGEN, BLOOD 21 mg/dL (7-18)
[2025-06-18] MEDS: METOPROLOL TARTRATE 25 MG TABLET PO ONE ×2 (11:00→11:58)
[2025-06-18] MEDS: ONDANSETRON HCL/PF - ER 4 MG/2 ML VIAL IV ONE (11:00)
[2025-06-18] MEDS ORDERED: ONDANSETRON HCL/PF 4 MG/2 ML VIAL ONE (11:00)
[2025-06-18] MEDS ORDERED: METOPROLOL TARTRATE 25 MG TABLET ONE ×2 (11:01→11:56)
[2025-06-18 11:10] LABS: ASPARTATE AMINOTRANSFERASE 14 U/L (15-37); NT-PRO BNP 16536 pg/mL (0-125); TOTAL PROTEIN, SERUM 7.4 g/dL (6.4-8.2)
[2025-06-18] MEDS ORDERED: DICY10CA13 PO (11:18)
[2025-06-18] MEDS ORDERED: FOLI0.8T3 PO (11:18)
[2025-06-18] MEDS ORDERED: CALC-1310 PO (11:18)
[2025-06-18] MEDS ORDERED: SEVE2.4P3 PO (11:18)
[2025-06-18] MEDS ORDERED: SENN-261 PO (11:18)
[2025-06-18] MEDS ORDERED: ASPI-1420 PO (11:18)
[2025-06-18] MEDS ORDERED: IPRA3AMP23 IH (11:18)
[2025-06-18] MEDS ORDERED: MIDO10TA PO (11:18)
[2025-06-18] MEDS ORDERED: METOPROLOL TARTRATE INJ 5 MG/5 ML AMPUL IV ONE (12:00)
[2025-06-18] MEDS ORDERED: ZOLPIDEM TARTRATE 5 MG TABLET PO PRN (12:30)
[2025-06-18] MEDS ORDERED: MAGNESIUM HYDROXIDE 30 ML UDC PO PRN (12:30)
[2025-06-18] MEDS ORDERED: ONDANSETRON HCL/PF 4 MG/2 ML VIAL IVP PRN (12:30)
[2025-06-18] MEDS ORDERED: Z GUARD REMEDY 4 OZ OINT TP PRN (12:30)
[2025-06-18] MEDS ORDERED: MAG HYDROX/AL HYDROX/SIMETH 30 ML UDC PO PRN (12:30)
[2025-06-18] MEDS: DOCUSATE SODIUM 100 MG CAPSULE PO SCH (13:00)
[2025-06-18] MEDS: AMIODARONE HCL 200 MG TABLET PO SCH (14:00)
[2025-06-18] MEDS ORDERED: AMIODARONE HCL 200 MG TABLET ONE (14:01)
[2025-06-18 14:30] VITALS: BP 99/60; TEMP 98; O2SAT 100
[2025-06-18] MEDS: DICYCLOMINE HCL 10 MG CAPSULE PO SCH (14:51)
[2025-06-18] MEDS: ACETAMINOPHEN 325 MG TABLET PO PRN (14:51)
[2025-06-18] MEDS: MIDODRINE HCL (5MG) 5 MG TABLET PO SCH (14:52)
[2025-06-18 15:46] LABS: CALCIUM, SERUM 8.7 mg/dL (8.5-10.1); CREATININE 3.3 mg/dL (0.6-1.3); SODIUM SERUM 139.0 mmol/L (136-145); UREA NITROGEN, BLOOD 25.0 mg/dL (7-18)
[2025-06-18 16:00] VITALS: BP 104/63; TEMP 98.6; O2SAT 100
[2025-06-18] MEDS: SEVELAMER CARBONATE 800 MG POWD.PACK PO SCH (17:50)
[2025-06-18 20:00] VITALS: BP 105/57; TEMP 99.3; O2SAT 100
[2025-06-18] MEDS: SENNOSIDES 8.6 MG TABLET PO SCH (21:14)
[2025-06-19] VITALS: BP 113/57; TEMP 98.8; O2SAT 100
[2025-06-19 04:00] VITALS: BP 121/58; TEMP 98.4; O2SAT 100
[2025-06-19 07:06] LABS: PLATELET COUNT (AUTO) 179 K/uL (150-450); RED BLOOD CELL COUNT(AUTO) 2.64 MIL/uL (4.5-6.0); RED CELL DISTRIBUTION WIDTH 14.9 % (11.5-15.0); WHITE BLOOD COUNT (AUTO) 5.4 K/uL (4.3-11.0)
[2025-06-19 07:12] LABS: CALCIUM, SERUM 9.1 mg/dL (8.5-10.1); CREATININE 4.6 mg/dL (0.6-1.3); PHOSPHORUS 3.9 mg/dL (2.5-4.9); SODIUM SERUM 142.0 mmol/L (136-145); UREA NITROGEN, BLOOD 38.0 mg/dL (7-18)
[2025-06-19 07:39] LABS: LDL 60.0 mg/dL (0-99)
[2025-06-19 08:00] VITALS: BP 111/60; TEMP 98.6; O2SAT 97
[2025-06-19] MEDS: ASPIRIN EC 81 MG TABLET.DR PO SCH (08:09)
[2025-06-19] MEDS: CINACALCET HCL 30 MG TABLET PO SCH (08:23)
[2025-06-19 12:00] VITALS: BP 103/59; TEMP 98.5; O2SAT 99
[2025-06-19 16:00] VITALS: BP 107/54; TEMP 97.9; O2SAT 99
[2025-06-19 20:00] VITALS: BP 102/60; TEMP 100.2; O2SAT 93
[2025-06-20] VITALS (9 sets, daily range): BP systolic 98–120; BP diastolic 56–71; TEMP 97.3–98.6; O2SAT 95–100
[2025-06-20] MEDS: HYDROCODONE/APAP 5/325MG TABLET PO PRN (21:10)
[2025-06-21 04:00] VITALS: BP 106/66; TEMP 98.2; O2SAT 100
[2025-06-21 08:00] VITALS: BP 115/55; TEMP 97.7; O2SAT 100
[2025-06-21] MEDS ORDERED: AMIO200T7 PO (09:33)
[2025-06-21 12:00] VITALS: BP 100/52; TEMP 97.9; O2SAT 100
[2025-06-21] MEDS: ALBUMIN 25% 25 GM in PREMIX 1 EA IV PRN (13:34)
[2025-06-21 17:25] VITALS: BP 109/69
== END 2025-06-21 20:26 | disposition home or self-care (01) | DRG 308 ==
LOC: ER 10:30 → TELE1 11:37 → TELE 12:37 → TELE1 13:52 → TELE-TD 13:58 → TELE1 06-19 09:43 → MEDSG1 06-20 09:26
PROVIDERS: ADMIT Internal Medicine; ATTEND Internal Medicine
PROC: 5A1D70Z Performance of Urinary Filtration, Intermittent, Less than 6 Hours Per Day (ICD-10-PCS; principal; 2025-06-20)
DX: I48.91 Unspecified atrial fibrillation (principal); J96.21 Acute and chronic respiratory failure with hypoxia; N18.6 End stage renal disease; I13.2 Hypertensive heart and chronic kidney disease with heart failure and with stage 5 chronic kidney disease, or end stage renal disease; D63.8 Anemia in other chronic diseases classified elsewhere; Z99.2 Dependence on renal dialysis; D68.69 Other thrombophilia; I25.10 Atherosclerotic heart disease of native coronary artery without angina pectoris; G47.33 Obstructive sleep apnea (adult) (pediatric); E87.6 Hypokalemia; E21.2 Other hyperparathyroidism; Z90.5 Acquired absence of kidney; Z85.51 Personal history of malignant neoplasm of bladder; Z96.643 Presence of artificial hip joint, bilateral; I95.9 Hypotension, unspecified; Z90.79 Acquired absence of other genital organ(s); E80.6 Other disorders of bilirubin metabolism; Z87.311 Personal history of (healed) other pathological fracture; I50.9 Heart failure, unspecified
CPT/HCPCS: 36415; 71045-TC; 80048-TC; 80061-TC; 80076-TC; 82962-TC; 83735-TC; 83880; 84100-TC; 84484-TC; 85025-TC; 87081-TC; 90935-TC; 93307-TC; 94660; 94760-TC; 94762-TC; 94799-TC; A4216; G0378; J2405; J3490; J7030; P9047